=== PATIENT | male | born 1935 | race Caucasian/White ===

== ENCOUNTER 2016-07-03 18:17 | Emergency (ER) | payer MEDICARE, OTHER ==
[2016-07-03] MEDS ORDERED: DIPH/PERTUSS(ACELL)/TETANUS VAC/PF 0.5 ML SYR (>=10YO) IM ONE (18:47)
--- NOTE | 2016-07-03 18:50 | ER Document Report ---
ED Medical Screen (RME) - General Chief Complaint: Fall Stated Complaint: FALL,ARM INJURY Notes: I briefly seen and evaluated this patient in my role as physician in triage. I have initiated orders based on this initial evaluation. Please see my colleague' s documentation for complete history, physical, management, diagnosis, and ultimate disposition. My brief evaluation: Patient presents after a mechanical fall at home. He got tripped up in the walker. He has Parkinson's disease. He landed on his left side. He was unable to get up. Patient's and sons helped him to the car. He was able to stand with assistance after the fall. He is complaining of pain in the left hand and in the left hip. He also has lacerations to the left elbow and left hands. Patient is not sure of his last tetanus shot. He denies hitting his head. He is not on blood thinners. On exam, patient alert and oriented no acute distress vital signs are stable patient is afebrile nontoxic appearing. Patient with wound dressings to the left elbow and left hand were not removed in triage. He is able to move his fingers and wrist but with some pain on range of motion. Patient has poor circulation bilaterally with cap refill of 3+ seconds. The patient is able to flex and extend the elbow and the shoulder. The patient is tender to palpation of the left hip. He is able to extend the knee. There is a good popliteal pulse. Medical decision making: We'll get plain films, tetanus update, and more thorough evaluation of wounds to guide appropriate wound management. TRAVEL OUTSIDE OF THE [place] IN LAST 30 DAYS: No - Related Data Allergies/Adverse Reactions: Opioids - Morphine Analogues [Opioids-Morphine & Related] Allergy (Verified 18:46) Confusion Past Medical History Pulmonary Medical History: Reports: Hx Asthma, Hx Pneumonia Renal/ Medical History: Denies: Hx Peritoneal Dialysis Psychiatric Medical History: Denies: Hx Depression Past Surgical History: Reports: Hx Cardiac Surgery - Bilateral, Hx Cholecystectomy, Hx Herniorrhaphy. Denies: Hx Abdominal Surgery - Immunizations Hx Diphtheria, Pertussis, Tetanus Vaccination: Yes
--- NOTE | 2016-07-03 20:53 | ER Document Report ---
ED General - General Chief Complaint: Fall Stated Complaint: FALL,ARM INJURY Mode of Arrival: Ambulatory Information source: Patient Notes: 80-year-old male persents after a fall into a coffee table just prior to arrival. pt denies any severe pain, notes skin tears TRAVEL OUTSIDE OF THE [place] IN LAST 30 DAYS: No - HPI Onset: Just prior to arrival Onset/Duration: Sudden Quality of pain: No pain Severity: Mild Pain Level: Denies Associated symptoms: None Exacerbated by: Denies Relieved by: Denies Similar symptoms previously: No Recently seen / treated by doctor: No - Related Data Allergies/Adverse Reactions: Opioids - Morphine Analogues [Opioids-Morphine & Related] Allergy (Verified 18:46) Confusion Past Medical History - Social History Smoking Status: Never Smoker Cigarette use (# per day): No Chew tobacco use (# tins/day): No Smoking Education Provided: No Family History: DM, Malignancy, Other - COPD Patient has suicidal ideation: No Patient has homicidal ideation: No Pulmonary Medical History: Reports: Hx Asthma, Hx Pneumonia Renal/ Medical History: Denies: Hx Peritoneal Dialysis Psychiatric Medical History: Denies: Hx Depression Past Surgical History: Reports: Hx Cardiac Surgery - Bilateral, Hx Cholecystectomy, Hx Herniorrhaphy. Denies: Hx Abdominal Surgery - Immunizations Hx Diphtheria, Pertussis, Tetanus Vaccination: Yes Hx Pneumococcal Vaccination: 12/20/12 Review of Systems - Review of Systems Notes: REVIEW OF SYSTEMS: CONSTITUTIONAL : Denies fever, chills, or sweats. Denies recent illness. EENT: Denies eye, ear, throat, or mouth pain or symptoms. Denies nasal or sinus congestion or discharge. Denies throat, tongue, or mouth swelling or difficulty swallowing. CARDIOVASCULAR: Denies chest pain. Denies palpitations or racing or irregular heart beat. Denies ankle edema. RESPIRATORY: Denies cough, cold, or chest congestion. Denies shortness of breath, difficulty breathing, or wheezing. GASTROINTESTINAL: Denies abdominal pain or distention. Denies nausea, vomiting , or diarrhea. Denies blood in vomitus, stools, or per rectum. Denies black, tarry stools. Denies constipation. GENITOURINARY: Denies difficulty urinating, painful urination, burning, frequency, blood in urine, or discharge. MUSCULOSKELETAL: Admits to left arm pain SKIN: Admits to skin tear HEMATOLOGIC : Denies easy bruising or bleeding. LYMPHATIC: Denies swollen, enlarged glands. NEUROLOGICAL: Denies confusion or altered mental status. Denies passing out or loss of consciousness. Denies dizziness or lightheadedness. Denies headache. Denies weakness or paralysis or loss of use of either side. Denies problems with gait or speech. Denies sensory loss, numbness, or tingling. Denies seizures. PSYCHIATRIC: Denies anxiety or stress. Denies depression, suicidal ideation, or homicidal ideation. ALL OTHER SYSTEMS REVIEWED AND NEGATIVE. Dictation was performed using [employer] recognition software PHYSICAL EXAMINATION: GENERAL: Well-appearing, well-nourished and in no acute distress. HEAD: Atraumatic, normocephalic. EYES: Pupils equal round and reactive to light, extraocular movements intact, sclera anicteric, conjunctiva are normal. ENT: Nares patent, oropharynx clear without exudates. Moist mucous membranes. NECK: Normal range of motion, supple without lymphadenopathy LUNGS: Breath sounds clear to auscultation bilaterally and equal. No wheezes rales or rhonchi. HEART: Regular rate and rhythm without murmurs ABDOMEN: Soft, nontender, nondistended abdomen. No guarding, no rebound. No masses appreciated. Musculoskeletal: Normal range of motion, no pitting or edema. No cyanosis. NEUROLOGICAL: Cranial nerves grossly intact. Normal speech, normal gait. Normal sensory, motor exams PSYCH: Normal mood, normal affect. SKIN: 2 small skin tears noted left elbow left wrist Physical Exam - Vital signs Vitals: Temp Pulse Resp BP Pulse Ox 97.7 F 89 18 157/86 H 98 07/03/16 18:22 07/03/16 18:22 07/03/16 18:22 07/03/16 18:22 07/03/16 18:22 Course - Re-evaluation Re-evalutation: 07/03/16 21:03 Area will have wet-to-dry dressing, Neosporin and care by PCT and nurse. Patient will be sent home with gauze and follow-up with primary care physician. Pressure to return precautions regarding wound care provided After performing a Medical Screening Examination, I estimate there is LOW risk for OPEN FRACTURE, COMPARTMENT SYNDROME, TENDON RUPTURE, ACUTE NEUROVASCULAR INJURY, or RETAINED FOREIGN BODY, thus I consider the discharge disposition reasonable. Also, there is no evidence or peritonitis, sepsis, or toxicity. I have reevaluated this patient multiple times and no significant life threatening changes are noted. The patient and I have discussed the diagnosis and risks, and we agree with discharging home with close follow-up with the understanding that symptoms and presentations can change. We also discussed returning to the Emergency Department immediately if new or worsening symptoms occur. We have discussed the symptoms which are most concerning (e.g., changing or worsening pain, fever, numbness, weakness, cool or painful digits) that necessitate immediate return. - Vital Signs Vital signs: Temp Pulse Resp BP Pulse Ox 97.7 F 89 18 157/86 H 98 07/03/16 18:22 07/03/16 18:22 07/03/16 18:22 07/03/16 18:22 07/03/16 18:22 - Diagnostic Test Radiology reviewed: Image reviewed, Reports reviewed Discharge - Discharge Clinical Impression: Skin tear Fall Qualifiers: Encounter type: initial encounter Qualified Code(s): W19.XXXA - Unspecified fall, initial encounter Condition: Stable Disposition: HOME, SELF-CARE Instructions: Delayed Wound Closure ([facility]) Additional Instructions: Follow up with your physician tomorrow for further care or return to the ED IMMEDIATELY if symptoms worsen or new concerns occur. If you cannot afford to follow up with your primary care physician a list of low cost clinics have been provided at the end of your discharge papers as well. Referrals: RAUDEL IBARRA MD [NO LOCAL MD] - Follow up as needed
[2016-07-03 21:36] VITALS: BP 147/85
== END 2016-07-03 21:37 | disposition home or self-care (01) ==
LOC: ER 18:17
DX: S61.512A Laceration without foreign body of left wrist, initial encounter (principal); S51.012A Laceration without foreign body of left elbow, initial encounter; M25.552 Pain in left hip; W01.190A Fall on same level from slipping, tripping and stumbling with subsequent striking against furniture, initial encounter; Z90.49 Acquired absence of other specified parts of digestive tract; Z23 Encounter for immunization
CPT/HCPCS: 90471; 90715; 99283

== ENCOUNTER 2016-07-21 13:03 | Emergency (ER) | payer MEDICARE, OTHER ==
--- NOTE | 2016-07-21 14:22 | ER Document Report ---
ED Medical Screen (RME) - General Chief Complaint: Leg Swelling Stated Complaint: SWOLLEN LEG Time seen by provider: 14:22 Mode of Arrival: Wheelchair Information source: Patient Notes: This is an 80-year-old man brought into the emergency room with bilateral lower extremity swelling right greater than left as per the . Patient also states she's been having right lower extremity pain. Patient denies any shortness of breath. TRAVEL OUTSIDE OF THE [place] IN LAST 30 DAYS: No - Related Data Allergies/Adverse Reactions: Opioids - Morphine Analogues [Opioids-Morphine & Related] Allergy (Verified 05/08 13:28) Confusion Past Medical History Pulmonary Medical History: Reports: Hx Asthma, Hx Pneumonia Renal/ Medical History: Denies: Hx Peritoneal Dialysis Psychiatric Medical History: Denies: Hx Depression Past Surgical History: Reports: Hx Cardiac Surgery - Bilateral, Hx Cholecystectomy, Hx Herniorrhaphy. Denies: Hx Abdominal Surgery - Immunizations Hx Diphtheria, Pertussis, Tetanus Vaccination: Yes Physical Exam - Vital signs Vitals: Temp Pulse Resp BP Pulse Ox 97.5 F 87 20 184/102 H 94 07/21/16 13:29 07/21/16 13:29 07/21/16 13:29 07/21/16 13:29 07/21/16 13:29 Course - Vital Signs Vital signs: Temp Pulse Resp BP Pulse Ox 97.5 F 87 20 184/102 H 94 07/21/16 13:29 07/21/16 13:29 07/21/16 13:29 07/21/16 13:29 07/21/16 13:29
[2016-07-21 15:23] LABS: ABSOLUTE BASOPHILS # (AUTO) 0.1 10^3/uL (0.0-0.2); ABSOLUTE EOSINOPHILS # (AUTO) 0.3 10^3/uL (0.0-0.6); ABSOLUTE LYMPHOCYTES (AUTO) 1.2 10^3/uL (0.5-4.7); ABSOLUTE MONOCYTES (AUTO) 1.1 10^3/uL (0.1-1.4); ABSOLUTE NEUT (AUTO) 6.4 10^3/uL (1.7-8.2); BASOPHILS % (AUTO) 0.7 % (0-2); EOSINOPHILS % (AUTO) 3.2 % (0-6); HEMATOCRIT 44.5 % (37.9-51.0); HEMOGLOBIN 15.1 g/dL (13.5-17.0); HGB HCT DIFFERENCE 0.8; LYMPHOCYTES % (AUTO) 13.7 % (13-45); MEAN CORPUSCULAR HGB CONC 33.9 g/dL (32.0-36.0); MEAN CORPUSCULAR VOLUME 92 fl (80-97); MONOCYTES % (AUTO) 11.9 % (3-13); RED BLOOD COUNT 4.87 10^6/uL (4.35-5.55); RED CELL DISTRIBUTION WIDTH 13.3 % (11.5-14.0); SEGMENTED NEUTROPHILS % (AUTO) 70.5 % (42-78); WHITE BLOOD COUNT 9.1 10^3/uL (4.0-10.5)
[2016-07-21 15:43] LABS: ALANINE AMINOTRANSFERASE 19 U/L (21-72); ALKALINE PHOSPHATASE 108 U/L (38-126); ANION GAP 13 (5-19); ASPARTATE AMINO TRANSFERASE 33 U/L (17-59); BILIRUBIN,DIRECT 0.3 mg/dL (0.0-0.4); BILIRUBIN,TOTAL 0.8 mg/dL (0.2-1.3); BLOOD UREA NITROGEN 21 mg/dL (7-20); CALCIUM 9.6 mg/dL (8.4-10.2); CARBON DIOXIDE 29 mmol/L (22-30); CHLORIDE 99 mmol/L (98-107); CREATINE KINASE 217 U/L (55-170); CREATININE RESULT 1.03 mg/dL (0.52-1.25); GLUCOSE 105 mg/dL (75-110); POTASSIUM 4.7 mmol/L (3.6-5.0); SODIUM 140.9 mmol/L (137-145); TOTAL PROTEIN 7.4 g/dL (6.3-8.2)
--- NOTE | 2016-07-21 17:15 | ER Document Report ---
ED Extremity Problem, Lower - General Chief Complaint: Leg Swelling Stated Complaint: SWOLLEN LEG Time seen by provider: 16:35 Mode of Arrival: Wheelchair Information source: Patient, Relative - Notes: 80-year-old male presents to ED for complaint of bilateral lower extremity swelling right greater than left as per his . She states that the doctor said that they were to bring him into the emergency room for the swelling in his legs. Patient denies any shortness of breath and states that the swelling in his legs have been for several weeks. Y states that he has had no cardiac history no problems with blood pressure cholesterol has had a history of asthma and pneumonia states she is also had a ventral hernia and left inguinal hernia repairs. Y states she's also had cataract surgery bilaterally, nose surgery, and cholecystectomy. TRAVEL OUTSIDE OF THE [place] IN LAST 30 DAYS: No - HPI Patient complains to provider of: Pain, Swelling Location: Foot, Leg, Thigh Occurred: Other - Several weeks Onset/Duration: Gradual, Persistent, Worse Quality of pain: Other - Patient states he has a pinching feeling in his legs but is not very bad. Severity: Mild Pain Level: 2 Recent injury: No Associated symptoms: Painful ambulation Exacerbated by: Movement, Walking Relieved by: Elevation - Related Data Allergies/Adverse Reactions: Opioids - Morphine Analogues [Opioids-Morphine & Related] Allergy (Verified 05/08 13:28) Confusion Past Medical History - General Information source: Patient - Social History Smoking Status: Never Smoker Chew tobacco use (# tins/day): No Frequency of alcohol use: None Drug Abuse: None Family History: DM, Malignancy, Other - COPD Patient has suicidal ideation: No Patient has homicidal ideation: No Pulmonary Medical History: Reports: Hx Asthma, Hx Pneumonia Renal/ Medical History: Denies: Hx Peritoneal Dialysis Psychiatric Medical History: Denies: Hx Depression Past Surgical History: Reports: Hx Cardiac Surgery - Bilateral, Hx Cholecystectomy, Hx Herniorrhaphy. Denies: Hx Abdominal Surgery - Immunizations Hx Diphtheria, Pertussis, Tetanus Vaccination: Yes Hx Pneumococcal Vaccination: 12/20/12 Physical Exam - Vital signs Vitals: Temp Pulse Resp BP Pulse Ox 97.5 F 87 20 184/102 H 94 07/21/16 13:29 07/21/16 13:29 07/21/16 13:29 07/21/16 13:29 07/21/16 13:29 Course - Re-evaluation Re-evalutation: 07/21/16 17:50 Discussed chest x-ray and Doppler with patient and family as well as labs. A written report of the Doppler chest x-ray and labs given to family to take to his primary doctor. His feet are very scaly and foul-smelling they were scrubbed dried well and a clean pad socks put on his feet. Patient and family were instructed to please clean those feet at least every other day if not every day rubbing them and drying them well and putting on his therapeutic socks which should be changed at least daily. - Vital Signs Vital signs: Temp Pulse Resp BP Pulse Ox 97.5 F 87 20 184/102 H 97 07/21/16 13:29 07/21/16 13:29 07/21/16 13:29 07/21/16 13:29 07/21/16 16:47 - Laboratory Result Diagrams: 07/21/16 14:50 07/21/16 14:50 Laboratory results interpreted by me: 07/21/16 14:50 BUN 21 H ALT 19 L Creatine Kinase 217 H - Diagnostic Test Radiology reviewed: Image reviewed, Reports reviewed Discharge - Discharge Clinical Impression: Edema of both legs Condition: Stable Disposition: HOME, SELF-CARE Additional Instructions: Edema, Peripheral You have swelling in your legs. This is called peripheral edema. It can be caused by "leaky capillaries," inflammation, disease of the leg veins, or excess salt and water in your body. Edema may be a sign of heart, kidney, or liver disease. A medical evaluation can determine if there is a serious underlying cause for your edema. Avoid prolonged standing. If you must sit for a long time, occasionally get up and walk around or elevate your legs. Support stockings can be helpful in limiting swelling. Often diuretic or water pills are used to remove excess salt and water from your body. Call the doctor or return if you develop increased swelling, pain, or redness, shortness of breath, chest pain, or any other significant change. You need to keep your feet elevated when you are not up walking. Your feet need to be higher then your heart when you're in your chair or your bed. You need to increase your ambulation with your walker as we discussed. Try going 12 steps 3 times a day tomorrow and 20 steps 3 times a day the next day. Then slowly increase the length of time you ambulate each time. Have your went behind you with the wheelchair and you walk with a walker. Call your doctor tomorrow to schedule a follow-up appointment. A copy of your labs Doppler and chest x-ray were sent with you for you to take to your primary doctor. Please be sure that someone cleans your feet with a good scrub and at least every other day if not every day until all of the scaly skin is removed. Be sure that you feet are well dried after they are washed each time. FOLLOW-UP CARE: If you have been referred to a physician for follow-up care, call the physician s office for an appointment as you were instructed or within the next two days. If you experience worsening or a significant change in your symptoms, notify the physician immediately or return to the Emergency Department at any time for re-evaluation. Forms: Elevated Blood Pressure Referrals: RAUDEL IBARRA MD [Primary Care Provider] - Follow up in 3-5 days
[2016-07-21 18:10] VITALS: BP 150/76
--- NOTE | 2016-07-21 19:09 | EKG REPORT ---
SEVERITY:- BORDERLINE ECG - SINUS RHYTHM LEFT AXIS DEVIATION BORDERLINE PROLONGED QT INTERVAL : Confirmed by: Rogers Collins MD 21-Jul-2016 19:08:50
== END 2016-07-21 18:30 | disposition home or self-care (01) ==
LOC: ER 13:03
DX: R60.0 Localized edema (principal); J45.909 Unspecified asthma, uncomplicated; Z88.5 Allergy status to narcotic agent
CPT/HCPCS: 36415; 71010; 80053; 82550; 82553; 85025; 93005; 93010; 93971; 99284

== ENCOUNTER 2016-08-14 17:33 | Emergency (ER) | payer MEDICARE, OTHER ==
[2016-08-14] MEDS ORDERED: LEVOFLOXACIN 500 MG/D5W RTU 100 ML IV ONE (17:47)
[2016-08-14] MEDS ORDERED: IPRATROPIUM/ALBUTEROL 0.5-2.5 MG/3 ML AMPUL NEB ONE (17:47)
--- NOTE | 2016-08-14 17:58 | ER Document Report ---
ED General - General Chief Complaint: Shortness Of Breath Stated Complaint: POSSIBLE SYNCOPE Time Seen by Provider: 08/14/16 17:37 Mode of Arrival: Ambulatory Information source: Patient Notes: A 1-year-old male who is on room air at home history of dementia presents with complaints of shortness of breath weakness. Patient was noted to have a syncopal episode initial blood pressure was noted to be 82/62, patient was noted to be satting 88% on room air. Patient has been complaining of shortness of breath productive cough yellowish sputum TRAVEL OUTSIDE OF THE [place] IN LAST 30 DAYS: No - HPI Onset: Last week Onset/Duration: Persistent Quality of pain: No pain Severity: Moderate Pain Level: Denies Associated symptoms: Shortness of breath Exacerbated by: Denies Relieved by: Denies Similar symptoms previously: Yes Recently seen / treated by doctor: Yes - Related Data Allergies/Adverse Reactions: Opioids - Morphine Analogues [Opioids-Morphine & Related] Allergy (Verified 05/08 13:28) Confusion Past Medical History - Social History Smoking Status: Never Smoker Cigarette use (# per day): No Chew tobacco use (# tins/day): No Smoking Education Provided: No Family History: DM, Malignancy, Other - COPD Pulmonary Medical History: Reports: Hx Asthma, Hx Pneumonia Renal/ Medical History: Denies: Hx Peritoneal Dialysis Psychiatric Medical History: Denies: Hx Depression Past Surgical History: Reports: Hx Cardiac Surgery - Bilateral, Hx Cholecystectomy, Hx Herniorrhaphy. Denies: Hx Abdominal Surgery - Immunizations Hx Diphtheria, Pertussis, Tetanus Vaccination: Yes Hx Pneumococcal Vaccination: 12/20/12 Review of Systems - Review of Systems Notes: PHYSICAL EXAMINATION: GENERAL: Well-appearing, well-nourished and in mild respiratory distress. HEAD: Atraumatic, normocephalic. EYES: Pupils equal round and reactive to light, extraocular movements intact, sclera anicteric, conjunctiva are normal. ENT: Nares patent, oropharynx clear without exudates. Moist mucous membranes. NECK: Normal range of motion, supple without lymphadenopathy LUNGS: Coarse wheezing all throughout supraclavicular intercostal retractions HEART: Regular rate and rhythm without murmurs ABDOMEN: Soft, nontender, nondistended abdomen. No guarding, no rebound. No masses appreciated. Musculoskeletal: Normal range of motion, no pitting or edema. No cyanosis. NEUROLOGICAL: Cranial nerves grossly intact. Normal speech, normal gait. Normal sensory, motor exams PSYCH: Normal mood, normal affect. SKIN: Warm, Dry, normal turgor, no rashes or lesions noted. Physical Exam - Vital signs Vitals: Temp Resp BP Pulse Ox 98.1 F 22 H 129/65 H 95 08/14/16 17:45 08/14/16 17:45 08/14/16 17:45 08/14/16 17:45 Course - Re-evaluation Re-evalutation: 08/14/16 17:58 Patient is having obvious respiratory distress, DuoNeb ordered. Lab work imaging pending 08/14/16 19:54 Patient coughed once and had a large thick sputum come out. Patient's O2 sats immediately improved to 98% and has been at 96-98% throughout on room air. Patient's blood pressures improved after fluids. I believe she is mildly dehydrated. Lab work looks well chest x-ray notes no pneumonia. I explained to the that if there is a medical reason to admit I would gladly admit the patient however I cannot find anything at this time. She patient was set up and did not have any changes in his blood pressure. Therefore I will discharge the patient with the understanding that they must return immediately if there are any other concerns After performing a Medical Screening Examination, I estimate there is LOW risk for ACUTE CORONARY SYNDROME, RESPIRATORY FAILURE, SEPSIS OR MENINGITIS, thus I consider the discharge disposition reasonable. I have reevaluated this patient multiple times and no significant life threatening changes are noted. The patient and I have discussed the diagnosis and risks, and we agree with discharging home with close follow-up. We also discussed returning to the Emergency Department immediately if new or worsening symptoms occur. We have discussed the symptoms which are most concerning (e.g., changing or worsening pain, trouble swallowing or breathing, neck stiffness, fever) that necessitate immediate return. - Vital Signs Vital signs: Temp Pulse Resp BP Pulse Ox 98.5 F 22 H 117/62 96 08/14/16 17:50 08/14/16 18:01 08/14/16 18:01 08/14/16 18:01 - Laboratory Result Diagrams: 08/14/16 17:58 08/14/16 17:58 Laboratory results interpreted by me: 08/14/16 08/14/16 08/14/16 17:58 17:58 19:06 Eosinophils % 7.5 H Sodium 136.8 L Glucose 130 H ALT 18 L Total Protein 5.7 L Albumin 3.0 L Urine Ketones TRACE H Urine Ascorbic Acid 40 H - Diagnostic Test Radiology reviewed: Image reviewed, Reports reviewed Discharge - Discharge Clinical Impression: Weakness Hypotension Qualifiers: Hypotension type: unspecified hypotension type Qualified Code(s): I95.9 - Hypotension, unspecified Failure to thrive Qualifiers: Failure to thrive age range: in adult Qualified Code(s): R62.7 - Adult failure to thrive Condition: Stable Disposition: HOME, SELF-CARE Instructions: Orthostatic Hypotension ([facility]) Referrals: THO IBARRA MD [Primary Care Provider] - Follow up tomorrow
[2016-08-14 18:09] LABS: ABSOLUTE BASOPHILS # (AUTO) 0.1 10^3/uL (0.0-0.2); ABSOLUTE EOSINOPHILS # (AUTO) 0.5 10^3/uL (0.0-0.6); ABSOLUTE LYMPHOCYTES (AUTO) 1.2 10^3/uL (0.5-4.7); ABSOLUTE MONOCYTES (AUTO) 0.8 10^3/uL (0.1-1.4); ABSOLUTE NEUT (AUTO) 4.7 10^3/uL (1.7-8.2); BASOPHILS % (AUTO) 0.9 % (0-2); EOSINOPHILS % (AUTO) 7.5 % (0-6); HEMATOCRIT 40.8 % (37.9-51.0); HEMOGLOBIN 13.5 g/dL (13.5-17.0); HGB HCT DIFFERENCE -0.3; LYMPHOCYTES % (AUTO) 16.1 % (13-45); MEAN CORPUSCULAR HEMOGLOBIN 30.1 pg (27.0-33.4); MEAN CORPUSCULAR HGB CONC 33.1 g/dL (32.0-36.0); MEAN CORPUSCULAR VOLUME 91 fl (80-97); RED BLOOD COUNT 4.48 10^6/uL (4.35-5.55); RED CELL DISTRIBUTION WIDTH 12.5 % (11.5-14.0); SEGMENTED NEUTROPHILS % (AUTO) 64.5 % (42-78); WHITE BLOOD COUNT 7.3 10^3/uL (4.0-10.5)
[2016-08-14 18:11] LABS: VENOUS BLOOD BASE EXCESS -0.7 mmol/L; VENOUS BLOOD HCO3 26.2 mmol/L (20-32); VENOUS BLOOD PCO2 51.9 mmHg (35-63); VENOUS BLOOD PH 7.32 (7.30-7.42)
[2016-08-14 18:16] LABS: PROTHROMBIN TIME 14.2 SEC (11.4-15.4)
[2016-08-14 18:23] LABS: ALANINE AMINOTRANSFERASE 18 U/L (21-72); ALKALINE PHOSPHATASE 85 U/L (38-126); ANION GAP 10 (5-19); ASPARTATE AMINO TRANSFERASE 21 U/L (17-59); BILIRUBIN,DIRECT 0.3 mg/dL (0.0-0.4); BILIRUBIN,TOTAL 0.4 mg/dL (0.2-1.3); BLOOD UREA NITROGEN 15 mg/dL (7-20); CALCIUM 8.4 mg/dL (8.4-10.2); CARBON DIOXIDE 27 mmol/L (22-30); CHLORIDE 100 mmol/L (98-107); CREATININE RESULT 0.97 mg/dL (0.52-1.25); GLUCOSE 130 mg/dL (75-110); POTASSIUM 4.2 mmol/L (3.6-5.0); SODIUM 136.8 mmol/L (137-145); TOTAL PROTEIN 5.7 g/dL (6.3-8.2)
--- NOTE | 2016-08-14 18:26 | RADIOLOGY REPORT (SQ) ---
EXAM DESCRIPTION: CHEST SINGLE VIEW COMPLETED DATE/TIME: 08/14/2016 6:17 pm REASON FOR STUDY: sob, hypoxemia COMPARISON: 08/08/2016 EXAM PARAMETERS: NUMBER OF VIEWS: One view. TECHNIQUE: Single frontal radiographic view of the chest acquired. RADIATION DOSE: NA LIMITATIONS: None. FINDINGS: LUNGS AND PLEURA: No opacities, masses or pneumothorax. No pleural effusion. MEDIASTINUM AND HILAR STRUCTURES: No masses. Contour normal. HEART AND VASCULAR STRUCTURES: Heart normal in size. Normal vasculature. BONES: No acute findings. HARDWARE: None in the chest. OTHER: No other significant finding. IMPRESSION: NO ACUTE RADIOGRAPHIC FINDING IN THE CHEST. TECHNICAL DOCUMENTATION: JOB ID: [id number]
[2016-08-14] MEDS ORDERED: NORMAL SALINE 1000 ML 1,000 ML IV ONE (18:29)
[2016-08-14 19:29] LABS: APPEARANCE,URINE CLEAR; BILIRUBIN,URINE NEGATIVE (NEGATIVE); GLUCOSE, URINE NEGATIVE (NEGATIVE); KETONES,URINE TRACE mg/dL (NEGATIVE); LEUKOCYTE ESTERASE,URINE NEGATIVE (NEGATIVE); NITRITE,URINE NEGATIVE (NEGATIVE); PROTEIN,URINE NEGATIVE (NEGATIVE); URINE SPECIFIC GRAVITY 1.012; UROBILINOGEN,URINE NEGATIVE mg/dL (<2.0)
--- NOTE | 2016-08-14 20:39 | EKG REPORT ---
SEVERITY:- ABNORMAL ECG - SINUS RHYTHM MULTIPLE VENTRICULAR PREMATURE COMPLEXES BORDERLINE T ABNORMALITIES, INFERIOR LEADS BORDERLINE PROLONGED QT INTERVAL : Confirmed by: Rogers Collins MD 14-Aug-2016 20:38:38
[2016-08-14 20:56] VITALS: BP 146/76
== END 2016-08-14 20:56 | disposition home or self-care (01) ==
LOC: ER 17:33
DX: I95.9 Hypotension, unspecified (principal); R62.7 Adult failure to thrive; R06.02 Shortness of breath; R53.1 Weakness
CPT/HCPCS: 93005; 94640; 99285; 96365; 36415; 87040; 87070; 87086; 87205; 85025; 85610; 87077; 80053; 81001; 82803; 83605; 71010; 93010; J1956; J7030; A9270; J7620

== ENCOUNTER 2017-10-25 09:46 | Emergency (ER) | payer MEDICARE, OTHER ==
--- NOTE | 2017-10-25 10:44 | ER Document Report ---
ED General - General Chief Complaint: Flank Pain Stated Complaint: FLANK PAIN Time Seen by Provider: 10/25/17 10:25 Notes: 81-year-old male lost his balance and fell. Landed on the right side. Complaining of pain in the right chest and abdomen. No loss of consciousness. Did not hit his head. No other issues at this time. TRAVEL OUTSIDE OF THE [place] IN LAST 30 DAYS: No - HPI Onset: Just prior to arrival Onset/Duration: Sudden - Related Data Allergies/Adverse Reactions: Opioids - Morphine Analogues [Opioids-Morphine & Related] Allergy (Verified 05/08 13:28) Confusion Past Medical History - General Information source: Patient, Relative - Social History Smoking Status: Never Smoker Cigarette use (# per day): No Chew tobacco use (# tins/day): No Frequency of alcohol use: 2-3 Brandys/night Drug Abuse: None Family History: DM, Malignancy, Other - COPD Patient has suicidal ideation: No Patient has homicidal ideation: No Pulmonary Medical History: Reports: Hx Asthma, Hx Pneumonia Renal/ Medical History: Denies: Hx Peritoneal Dialysis Psychiatric Medical History: Denies: Hx Depression Past Surgical History: Reports: Hx Cardiac Surgery - Bilateral, Hx Cholecystectomy, Hx Herniorrhaphy. Denies: Hx Abdominal Surgery - Immunizations Hx Diphtheria, Pertussis, Tetanus Vaccination: Yes Hx Pneumococcal Vaccination: 12/20/12 Review of Systems - Review of Systems Constitutional: No symptoms reported EENT: No symptoms reported Cardiovascular: No symptoms reported, Chest pain. denies: Palpitations, Heart racing Respiratory: Hurts to breathe. denies: Cough, Short of breath, Wheezing Gastrointestinal: Abdominal pain. denies: Diarrhea, Nausea, Vomiting, Constipation, Black stools Genitourinary: denies: Burning, Dysuria, Flank pain Male Genitourinary: No symptoms reported Musculoskeletal: No symptoms reported Skin: No symptoms reported Hematologic/Lymphatic: No symptoms reported Neurological/Psychological: Other - Parkinson's tremor. denies: Confusion, Weakness, Numbness Physical Exam - Vital signs Vitals: Temp Pulse Resp BP Pulse Ox 97.6 F 74 16 138/61 H 95 10/25/17 09:59 10/25/17 09:59 10/25/17 09:59 10/25/17 09:59 10/25/17 09:59 Interpretation: Normal - General General appearance: Appears well, Alert - HEENT Head: Normocephalic, Atraumatic Eyes: Normal Pupils: PERRL - Respiratory Respiratory status: No respiratory distress Chest status: Nontender Breath sounds: Normal Chest palpation: Normal - Cardiovascular Rhythm: Regular Heart sounds: Normal auscultation Murmur: No Notes: Right-sided chest pain with palpation - Abdominal Inspection: Normal Distension: No distension Bowel sounds: Normal Tenderness: Tender - All tenderness in the abdomen. No guarding or rebound. Organomegaly: No organomegaly - Back Back: Normal, Nontender - Extremities General upper extremity: Normal inspection, Nontender, Normal color, Normal ROM , Normal temperature General lower extremity: Normal inspection, Nontender, Normal color, Normal ROM , Normal temperature. No: Sunday's sign - Neurological Neuro grossly intact: Yes Cognition: Normal Orientation: AAOx4 Shaji Coma Scale Eye Opening: Spontaneous Shaji Coma Scale Verbal: Oriented Shaji Coma Scale Motor: Obeys Commands Shaji Coma Scale Total: 15 Speech: Normal Motor strength normal: LUE, RUE, LLE, RLE Sensory: Normal - Psychological Associated symptoms: Normal affect, Normal mood - Skin Skin Temperature: Warm Skin Moisture: Dry Skin Color: Normal Course - Re-evaluation Re-evalutation: 10/25/17 14:12 Labs are unremarkable. CT scan shows a small trace right pleural effusion but nothing significant. No signs of pneumonia. No pneumothorax. No solid organ injuries. At this time we will discharge. 10/25/17 14:14 Abdomen/Pelvis CT 10/25/17 00:00 IMPRESSION: No significant intra-abdominal or pelvic posttraumatic changes. Other findings as noted above Chest CT 10/25/17 00:00 IMPRESSION: Tiny right pleural effusion is identified. There is some minimal patchy densities in the lung bases most consistent with atelectatic changes or scarring. No other significant intrathoracic abnormalities were identified. Other findings as noted above Laboratory 10/25/17 10/25/17 10/25/17 11:27 11:27 11:32 WBC 8.6 RBC 5.44 Hgb 16.9 Hct 50.8 MCV 93 MCH 31.1 MCHC 33.4 RDW 14.3 H Plt Count 206 Seg Neutrophils % 74.2 Lymphocytes % 12.2 L Monocytes % 10.6 Eosinophils % 2.4 Basophils % 0.6 Absolute Neutrophils 6.4 Absolute Lymphocytes 1.0 Absolute Monocytes 0.9 Absolute Eosinophils 0.2 Absolute Basophils 0.1 Sodium 139.8 Potassium 4.4 Chloride 99 Carbon Dioxide 30 Anion Gap 11 BUN 12 Creatinine 0.97 Est GFR ( Amer) > 60 Est GFR (Non-Af Amer) > 60 Glucose 109 Calcium 9.2 Total Bilirubin 0.7 Direct Bilirubin 0.3 Neonat Total Bilirubin Not Reportable Neonat Direct Bilirubin Not Reportable Neonat Indirect Bili Not Reportable AST 22 ALT 10 L Alkaline Phosphatase 93 Total Protein 7.8 Albumin 4.1 Urine Color YELLOW Urine Appearance CLEAR Urine pH 6.0 Ur Specific Morris 1.017 Urine Protein NEGATIVE Urine Glucose (UA) NEGATIVE Urine Ketones TRACE H Urine Blood NEGATIVE Urine Nitrite NEGATIVE Urine Bilirubin NEGATIVE Urine Urobilinogen NEGATIVE Ur Leukocyte Esterase TRACE H Urine WBC (Auto) 3 Urine RBC (Auto) 0 U Hyaline Cast (Auto) 1 Squamous Epi Cells Auto <1 Urine Mucus (Auto) RARE Urine Ascorbic Acid 40 H - Vital Signs Vital signs: Temp Pulse Resp BP Pulse Ox 97.6 F 74 17 165/83 H 95 10/25/17 09:59 10/25/17 09:59 10/25/17 13:00 10/25/17 12:01 10/25/17 13:00 - Laboratory Result Diagrams: 10/25/17 11:27 10/25/17 11:27 Laboratory results interpreted by me: 10/25/17 10/25/17 10/25/17 11:27 11:27 11:32 RDW 14.3 H Lymphocytes % 12.2 L ALT 10 L Urine Ketones TRACE H Ur Leukocyte Esterase TRACE H Urine Ascorbic Acid 40 H Discharge - Discharge Clinical Impression: Chest wall contusion Qualifiers: Encounter type: initial encounter Laterality: right Qualified Code(s): S20.211A - Contusion of right front wall of thorax, initial encounter Abdominal wall contusion Qualifiers: Encounter type: initial encounter Qualified Code(s): S30.1XXA - Contusion of abdominal wall, initial encounter Condition: Good Disposition: HOME, SELF-CARE Instructions: Rib Contusion ([facility]), Abdominal Pain ([facility]) Additional Instructions: Please follow-up with your doctor. Return for any worsening symptoms or concerns. Referrals: THO IBARRA MD [Primary Care Provider] - Follow up as needed
[2017-10-25 11:33] LABS: ABSOLUTE BASOPHILS # (AUTO) 0.1 10^3/uL (0.0-0.2); ABSOLUTE EOSINOPHILS # (AUTO) 0.2 10^3/uL (0.0-0.6); ABSOLUTE MONOCYTES (AUTO) 0.9 10^3/uL (0.1-1.4); ABSOLUTE NEUT (AUTO) 6.4 10^3/uL (1.7-8.2); BASOPHILS % (AUTO) 0.6 % (0-2); EOSINOPHILS % (AUTO) 2.4 % (0-6); HEMATOCRIT 50.8 % (37.9-51.0); HEMOGLOBIN 16.9 g/dL (13.5-17.0); LYMPHOCYTES % (AUTO) 12.2 % (13-45); MEAN CORPUSCULAR HEMOGLOBIN 31.1 pg (27.0-33.4); MEAN CORPUSCULAR HGB CONC 33.4 g/dL (32.0-36.0); MEAN CORPUSCULAR VOLUME 93 fl (80-97); MONOCYTES % (AUTO) 10.6 % (3-13); PLATELET COUNT 206 10^3/uL (150-450); RED BLOOD COUNT 5.44 10^6/uL (4.35-5.55); RED CELL DISTRIBUTION WIDTH 14.3 % (11.5-14.0); SEGMENTED NEUTROPHILS % (AUTO) 74.2 % (42-78); TOTAL CELLS COUNTED % (AUTO) 100 %; WHITE BLOOD COUNT 8.6 10^3/uL (4.0-10.5)
[2017-10-25 11:55] LABS: ALANINE AMINOTRANSFERASE 10 U/L (21-72); ALBUMIN 4.1 g/dL (3.5-5.0); ALKALINE PHOSPHATASE 93 U/L (38-126); ANION GAP 11 (5-19); ASPARTATE AMINO TRANSFERASE 22 U/L (17-59); BILIRUBIN,DIRECT 0.3 mg/dL (0.0-0.4); BILIRUBIN,TOTAL 0.7 mg/dL (0.2-1.3); BLOOD UREA NITROGEN 12 mg/dL (7-20); CALCIUM 9.2 mg/dL (8.4-10.2); CARBON DIOXIDE 30 mmol/L (22-30); CHLORIDE 99 mmol/L (98-107); GLUCOSE 109 mg/dL (75-110); POTASSIUM 4.4 mmol/L (3.6-5.0); SODIUM 139.8 mmol/L (137-145); TOTAL PROTEIN 7.8 g/dL (6.3-8.2)
[2017-10-25 11:58] LABS: APPEARANCE,URINE CLEAR; BILIRUBIN,URINE NEGATIVE (NEGATIVE); COLOR,URINE YELLOW; GLUCOSE, URINE NEGATIVE (NEGATIVE); KETONES,URINE TRACE mg/dL (NEGATIVE); LEUKOCYTE ESTERASE,URINE TRACE (NEGATIVE); NITRITE,URINE NEGATIVE (NEGATIVE); PROTEIN,URINE NEGATIVE (NEGATIVE); URINE SPECIFIC GRAVITY 1.017; UROBILINOGEN,URINE NEGATIVE mg/dL (<2.0)
--- NOTE | 2017-10-25 13:03 | RADIOLOGY REPORT (SQ) ---
EXAM DESCRIPTION: CT CHEST WITH COMPLETED DATE/TIME: 10/25/2017 12:26 pm REASON FOR STUDY: fall COMPARISON: February 2015 TECHNIQUE: CT scan of the chest performed using helical scanning technique with dynamic intravenous contrast injection. Images reviewed with lung, soft tissue and bone windows. Reconstructed coronal and sagittal MPR images reviewed. All images stored on PACS. All CT scanners at this facility use dose modulation, iterative reconstruction, and/or weight based d osing when appropriate to reduce radiation dose to as low as reasonably achievable (ALARA). [facility]: Dose Right [facility]: CareDose [facility]: Dose Right [facility]: Teradose 4D [facility]: [place] CONTRAST TYPE AND DOSE: 89 mL Omnipaque 350 RENAL FUNCTION: Creatinine 0.97 RADIATION DOSE: . LIMITATIONS: None. FINDINGS: LUNGS AND PLEURA: Tiny right pleural effusion is identified. There are some minimal patch y densities in the lung bases most consistent with atelectatic changes or scarring. No acute consoli dations are identified. No pneumothorax is seen. HILAR AND MEDIASTINAL STRUCTURES: No identified masses or abnormal nodes. HEART AND VASCULAR STRUCTURES: No aneurysm or dissection. No central pulmonary emboli. No pericardi al effusion. HARDWARE: None in the chest. UPPER ABDOMEN: See results under abdominal CT scan THYROID AND OTHER SOFT TISSUES: No masses. No adenopathy. BONES: No significant finding. OTHER: No other significant finding. IMPRESSION: Tiny right pleural effusion is identified. There is some minimal patchy densities in th e lung bases most consistent with atelectatic changes or scarring. No other significant intrathoraci c abnormalities were identified. Other findings as noted above TECHNICAL DOCUMENTATION: JOB ID: [id number] Quality ID # [id number]: Final reports with documentation of one or more dose reduction techniques (e.g., Au tomated exposure control, adjustment of the mA and/or kV according to patient size, use of iterative reconstruction technique) 2010 [employer]- All Rights Reserved Reading location - IP/workstation name: [email or web address]
--- NOTE | 2017-10-25 13:11 | RADIOLOGY REPORT (SQ) ---
EXAM DESCRIPTION: CT ABD/PELVIS WITH IV ONLY COMPLETED DATE/TIME: 10/25/2017 12:26 pm REASON FOR STUDY: bed 7 fall COMPARISON: February 2015 TECHNIQUE: CT scan of the abdomen and pelvis performed using helical scanning technique with dynamic intravenous contrast injection. No oral contrast. Images reviewed with lung, soft tissue, and bone windows. Reconstructed coronal and sagittal MPR images reviewed. Delayed images for evaluation of the urinary system also acquired. All images stored on PACS. All CT scanners at this facility use dose modulation, iterative reconstruction, and/or weight based d osing when appropriate to reduce radiation dose to as low as reasonably achievable (ALARA). [facility]: Dose Right [facility]: CareDose [facility]: Dose Right [facility]: Teradose 4D [facility]: [employer] CONTRAST TYPE AND DOSE: contrast/concentration: Isovue 350.00 mg/ml; Total Contrast Delivered: 89.0 ml; Total Saline Delivered: 65.0 ml RENAL FUNCTION: Creatinine 0.97 RADIATION DOSE: CT Rad equipment meets quality standard of care and radiation dose reduction techniq ues were employed. CTDIvol: 15.3 - 19.4 mGy. DLP: 2162 mGy-cm.. LIMITATIONS: None. FINDINGS: LOWER CHEST: See results under chest CT scan LIVER: Normal size. No masses. No dilated ducts. SPLEEN: Normal size. No focal lesions. PANCREAS: No masses. No significant calcifications. No adjacent inflammation or peripancreatic fluid collections. Pancreatic duct not dilated. GALLBLADDER: Status post cholecystectomy. ADRENAL GLANDS: No significant masses or asymmetry. RIGHT KIDNEY AND URETER: No solid masses. No significant calcifications. No hydronephrosis or hyd roureter. LEFT KIDNEY AND URETER: No solid masses. The previously described peripelvic cysts appears stable. No significant calcifications. No hydronephrosis or hydroureter. AORTA AND VESSELS: No aneurysm. No dissection. There is ectasia of the abdominal aorta with vascular calcifications. Renal arteries, SMA, celiac without stenosis. RETROPERITONEUM: No retroperitoneal adenopathy, hemorrhage or masses. BOWEL AND PERITONEAL CAVITY: No masses or inflammatory changes. No free fluid or peritoneal masses. APPENDIX: Normal. PELVIS: No mass. No free fluid. Urine distended bladder is identified. ABDOMINAL WALL: No masses. No hernias. BONES: No acute findings. There is minimal anterolisthesis of L 5 in relation to S1. OTHER: No other significant finding. IMPRESSION: No significant intra-abdominal or pelvic posttraumatic changes. Other findings as noted above TECHNICAL DOCUMENTATION: JOB ID: [id number] Quality ID # [id number]: Final reports with documentation of one or more dose reduction techniques (e.g., Au tomated exposure control, adjustment of the mA and/or kV according to patient size, use of iterative reconstruction technique) 2010 [employer]- All Rights Reserved Reading location - IP/workstation name: [email or web address]
[2017-10-25] MEDS ORDERED: KETOROLAC TROMETHAMINE INJ/PF 30 MG/1 ML SDV IV ONE (14:13)
[2017-10-25 15:27] VITALS: BP 167/79
== END 2017-10-25 15:05 | disposition home or self-care (01) ==
LOC: ER 09:46
DX: S20.211A Contusion of right front wall of thorax, initial encounter (principal); S30.1XXA Contusion of abdominal wall, initial encounter; W18.30XA Fall on same level, unspecified, initial encounter; Z88.6 Allergy status to analgesic agent
CPT/HCPCS: 99284; 96374; 36415; 85025; 80053; 81001; 71260; 74177; J1885

== ENCOUNTER 2018-03-17 12:43 | Observation (INO) | payer MEDICARE, OTHER ==
--- NOTE | 2018-03-17 13:44 | ER Document Report ---
ED Dizziness/Weakness - General Chief Complaint: Syncope Stated Complaint: SYNCOPE Time Seen by Provider: 03/17/18 13:27 Information source: Patient Notes: Patient is an 82-year-old male with past medical history as recorded who presents today with EMS after supposed episode where he states he felt "lightheaded" while attending have a bowel movement. Patient states he had a transient episode of pain to the top of his head. He states it lasted less than 10 minutes. He denies any pain at this time. He denies any neck pain, chest pain, abdominal pain, palpitations, nausea, vomiting, diarrhea, fever, weakness or numbness to the arms or legs. Patient states that that he had a physical therapy session at home and had to use the bathroom. He does not remember why he has physical therapy. Patient states his does "most of the talking". She was supposed to follow the EMS vehicle but is currently not in the room. TRAVEL OUTSIDE OF THE [place] IN LAST 30 DAYS: No - HPI Patient complains to provider of: Dizziness Onset: Other - See above Quality of pain: No pain Severity: Mild Pain Level: Denies Associated symptoms: Other - See above Exacerbated by: Other - See above - Related Data Allergies/Adverse Reactions: Opioids - Morphine Analogues [Opioids-Morphine & Related] Allergy (Verified 07/21/16 13:28) Confusion Past Medical History - Social History Smoking Status: Unknown if Ever Smoked Family History: DM, Malignancy, Other - COPD Patient has suicidal ideation: No Patient has homicidal ideation: No Pulmonary Medical History: Reports: Hx Asthma, Hx Pneumonia Renal/ Medical History: Denies: Hx Peritoneal Dialysis Psychiatric Medical History: Denies: Hx Depression Past Surgical History: Reports: Hx Cardiac Surgery - Bilateral, Hx Cholecystectomy, Hx Herniorrhaphy. Denies: Hx Abdominal Surgery - Immunizations Hx Diphtheria, Pertussis, Tetanus Vaccination: Yes Hx Pneumococcal Vaccination: 12/20/12 Review of Systems - Review of Systems Constitutional: denies: Fever EENT: denies: Eye discharge, Nose discharge Cardiovascular: denies: Chest pain, Palpitations Respiratory: denies: Short of breath Gastrointestinal: denies: Vomiting Genitourinary: denies: Dysuria Musculoskeletal: denies: Leg swelling Skin: Other - no hives. denies: Rash Neurological/Psychological: Other - no slurred speech -: Yes All other systems reviewed and negative Physical Exam - Vital signs Vitals: Resp 24 H 03/17/18 12:47 Notes: Reviewed vital signs and nursing note as charted by RN. CONSTITUTIONAL: Alert and responds appropriately to questions. Well-appearing; well-nourished HEAD: Normocephalic; atraumatic EYES: PERRL; full extraocular range of motion; sclerae non-icteric ENT: Normal nose; no rhinorrhea; moist mucous membranes; pharynx without lesions noted NECK: Supple without meningismus; non-tender; carotid bruit; no cervical lymph adenopathy, no masses CARD: Regular rate and rhythm; no murmurs; symmetric distal pulses RESP: Normal chest excursion without splinting or tachypnea; breath sounds clear and equal bilaterally; no wheezes, no rhonchi, no rales ABD/GI: Normal bowel sounds; non-distended; soft, non-tender; no palpable organomegaly or masses with no bruits to auscultation BACK: The back appears normal and is non-tender to palpation EXT: Normal ROM in all joints; non-tender to palpation; no edema SKIN: No acute lesions noted NEURO: CN 2-12 intact with some left-sided facial droop which the patient states is baseline; patient is able to lift both arms greater than 10 seconds in both legs greater than 5 seconds independently PSYCH: The patient's mood and manner are appropriate. Grooming and personal hygiene are appropriate. Course - Re-evaluation Re-evalutation: Given the history and physical examination we will order CT scan of the head, place the patient on the monitor and obtain a cardiac evaluation as well as an EKG. Vital signs are stable. I like to evaluate for any obvious cardiac dysrhythmias or intracranial lesions. I do believe acute bacterial meningitis to be unlikely. Given the time course, CT scan of the head should be 100% sensitive for intracranial bleed or subarachnoid hemorrhage. 03/17/18 13:43 EKG shows a heart of 82, normal sinus rhythm, left axis deviation, no obvious ST elevation or depression, inverted T wave in lead III. 03/17/18 14:01 No change in exam. Patient's and daughter are currently now in the room. They state that his story is slightly inaccurate. 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 Patient had both physical therapy and occupational therapy back to back today which she has "a lot and unusual for him". They state that the patient had episode where his eyes were open but he was slightly unresponsive. No shaking or seizure-like activity. Patient did not have any incontinence and had no postictal period of confusion. 03/17/18 15:16 Imaging and labs as recorded. No change in examination. Family is very concerned about the possibility of a mini stroke and/or seizure. I do believe there is a possibility of a mini stroke. I do believe seizure to be less likely. Given the heart rate in the blood pressure that were initially low by EMS, this also could have been a vagal/syncopal-like reaction. Patient will be admitted for observation. - Vital Signs Vital signs: Temp Pulse Resp BP Pulse Ox 97.6 F 80 20 134/71 H 96 03/17/18 13:03 03/17/18 13:03 03/17/18 13:03 03/17/18 13:03 03/17/18 13:03 - Laboratory Result Diagrams: 03/17/18 13:09 03/17/18 13:09 Laboratory results interpreted by me: 03/17/18 03/17/18 13:09 13:09 RDW 14.6 H Lymphocytes % 11.6 L Sodium 136.4 L Carbon Dioxide 31 H Glucose 131 H Discharge - Discharge Clinical Impression: Syncope, near, Bradycardia, Nonspecific low blood pressure reading Condition: Fair Disposition: ADMITTED OBSERVATION Admitting Provider: Hospitalist Unit Admitted: Telemetry Referrals: THO IBARRA MD [Primary Care Provider] - Follow up as needed
[2018-03-17 13:48] LABS: ABSOLUTE EOSINOPHILS # (AUTO) 0.2 10^3/uL (0.0-0.6); ABSOLUTE LYMPHOCYTES (AUTO) 1.1 10^3/uL (0.5-4.7); ABSOLUTE MONOCYTES (AUTO) 0.9 10^3/uL (0.1-1.4); ABSOLUTE NEUT (AUTO) 7.2 10^3/uL (1.7-8.2); BASOPHILS % (AUTO) 0.4 % (0-2); EOSINOPHILS % (AUTO) 1.9 % (0-6); HEMATOCRIT 48.1 % (37.9-51.0); HEMOGLOBIN 16.3 g/dL (13.5-17.0); LYMPHOCYTES % (AUTO) 11.6 % (13-45); MEAN CORPUSCULAR HEMOGLOBIN 31.7 pg (27.0-33.4); MEAN CORPUSCULAR HGB CONC 33.9 g/dL (32.0-36.0); MEAN CORPUSCULAR VOLUME 93 fl (80-97); MONOCYTES % (AUTO) 9.6 % (3-13); PLATELET COUNT 191 10^3/uL (150-450); RED BLOOD COUNT 5.15 10^6/uL (4.35-5.55); RED CELL DISTRIBUTION WIDTH 14.6 % (11.5-14.0); SEGMENTED NEUTROPHILS % (AUTO) 76.5 % (42-78); TOTAL CELLS COUNTED % (AUTO) 100 %; WHITE BLOOD COUNT 9.4 10^3/uL (4.0-10.5)
[2018-03-17 13:57] LABS: ANION GAP 5 (5-19); BLOOD UREA NITROGEN 13 mg/dL (7-20); CARBON DIOXIDE 31 mmol/L (22-30); CHLORIDE 100 mmol/L (98-107); GLUCOSE 131 mg/dL (75-110); POTASSIUM 4.1 mmol/L (3.6-5.0); SODIUM 136.4 mmol/L (137-145)
--- NOTE | 2018-03-17 14:41 | RADIOLOGY REPORT (SQ) ---
EXAM DESCRIPTION: CT HEAD WITHOUT COMPLETED DATE/TIME: 03/17/2018 2:32 pm REASON FOR STUDY: 8; possible syncope COMPARISON: None. TECHNIQUE: Axial images acquired through the brain without intravenous contrast. Images reviewed wi th bone, brain and subdural windows. Additional sagittal and coronal reconstructions were generated. Images stored on PACS. All CT scanners at this facility use dose modulation, iterative reconstruction, and/or weight based d osing when appropriate to reduce radiation dose to as low as reasonably achievable (ALARA). [facility]: Dose Right [facility]: CareDose [facility]: Dose Right [facility]: Teradose 4D [facility]: [employer] RADIATION DOSE: CT Rad equipment meets quality standard of care and radiation dose reduction techniq ues were employed. CTDIvol: 53.2 mGy. DLP: 1070 mGy-cm. mGy. LIMITATIONS: None. FINDINGS: VENTRICLES: Normal size and contour. CEREBRUM: No masses. No hemorrhage. No midline shift. No evidence for acute infarction. Few scatte red areas of low density in the white matter most likely chronic small vessel ischemic changes. CEREBELLUM: No masses. No hemorrhage. No alteration of density. No evidence for acute infarction. EXTRAAXIAL SPACES: No fluid collections. No masses. ORBITS AND GLOBE: No intra- or extraconal masses. Normal contour of globe without masses. CALVARIUM: No fracture. PARANASAL SINUSES: No fluid or mucosal thickening. SOFT TISSUES: No mass or hematoma. OTHER: No other significant finding. IMPRESSION: No acute intracranial pathology. Small vessel white matter disease in keeping with adva nced patient age. EVIDENCE OF ACUTE STROKE: NO. COMMENT: Quality ID # 436: Final reports with documentation of one or more dose reduction techniques (e.g., Automated exposure control, adjustment of the mA and/or kV according to patient size, use of iterative reconstruction technique) TECHNICAL DOCUMENTATION: JOB ID: [id number] [employer]- All Rights Reserved Reading location - IP/workstation name: [email or web address]
--- NOTE | 2018-03-17 18:17 | PDOC H&P ---
History of Present Illness Admission Date/PCP: 03/17/18 15:55 THO IBARRA MD Patient complains of: Passed out History of Present Illness: LENNIE SANTANA JR is a 82 year old male history of Parkinson's disease who is currently undergoing physical therapy. Patient had physical therapy today and when he sat on the chair later, he became unresponsive for about a minute. He had blanks stare by his . There were no shaking or frothing in the mouth. When he became responsive, he was not postictal. He presented to the ED where evaluation significant for stomach blood pressure in the 70s, heart rate 40s. He had a negative head CT. Patient referred for admission to observation. Past Medical History Pulmonary Medical History: Reports: Asthma, Pneumonia Psychiatric Medical History: Denies: Depression Past Surgical History Past Surgical History: Reports: Cholecystectomy, Herniorrhaphy Social History Smoking Status: Unknown if Ever Smoked Frequency of Alcohol Use: Social Hx Recreational Drug Use: No Drugs: None Hx Prescription Drug Abuse: No - Advance Directive Resuscitation Status: Full Code Family History Family History: DM, Malignancy, Other - COPD Parental Family History Reviewed: Yes Children Family History Reviewed: Yes Sibling(s) Family History Reviewed.: Yes Medication/Allergy Home Medications: Azelastine HCl 2 spray NASL BID 02/08/15 Loratadine 10 mg PO DAILY PRN 02/08/15 Montelukast Sodium [Singulair 10 mg Tablet] 10 mg PO DAILY 02/08/15 Budesonide/Formoterol Fumarate [Symbicort HFA 80-4.5 mcg Inhaler 6.9 gm] 1 puff IH BID 03/18/15 Carbidopa/Levodopa [Sinemet 25-100 mg Tablet] 2 tab PO TID 03/18/15 Cyclosporine 0.05% Oph Emulsio [Restasis 0.05% Oph Emulsion Pf 0.4 ml] 1 drop OP BID 03/20/15 Aspirin [Aspirin 81 mg Chewable Tablet] 81 mg PO DAILY tab.chew 03/24/15 Docusate Sodium [Colace Udc 100 mg/10 ml Oral Soln] 100 mg PO BID udc 03/24/15 Fluconazole [Diflucan 100 mg Tablet] 100 mg PO QPM #7 tablet 03/24/15 Levofloxacin [Levaquin 750 mg Tablet] 750 mg PO DAILY #5 tablet 03/24/15 Carbidopa/Levodopa [Sinemet 25-100 mg Tablet] 2 tab PO Q8 tablet 03/26/15 Cyclosporine 0.05% Oph Emulsio [Restasis 0.05% Oph Emulsion Pf 0.4 ml] 1 drop OU Q12 droperette 03/26/15 Prednisone [Deltasone 10 mg Tablet] 10 mg PO DAILY #5 tablet 03/26/15 Ketorolac Tromethamine [Toradol 10 mg Tablet] 10 mg PO Q8H PRN 5 Days #15 tablet 10/25/17 Allergies/Adverse Reactions: Opioids - Morphine Analogues [Opioids-Morphine & Related] Allergy (Verified 13:28) Confusion Review of Systems Review of Systems: CONSTITUTIONAL : Fever, chills -- No; unexpalined fatigue -- No EENT: Denies eye, ear, throat, or mouth pain or symptoms. Denies nasal or sinus congestion or discharge. Denies throat, tongue, or mouth swelling or difficulty swallowing. CARDIOVASCULAR: Denies chest pain. No racing heart RESPIRATORY: Denies cough, no shortness of breath, difficulty breathing. GASTROINTESTINAL: Denies abdominal pain or distention. Denies nausea, vomiting, or diarrhea. No rectal bleeding. GENITOURINARY: Urinary symptoms -- no. MUSCULOSKELETAL: No acute weakness SKIN: Denies rash, lesions or sores. HEMATOLOGIC : Denies easy bruising or bleeding. LYMPHATIC: Denies swollen, enlarged glands. NEUROLOGICAL: New weakness, headaches, slured speach - No PSYCHIATRIC: Changes anxiety or stress, depression, suicidal ideation, or homicidal ideation -- No ALL OTHER SYSTEMS REVIEWED AND NEGATIVE. Physical Exam Vital Signs: Temp Pulse Resp BP Pulse Ox 97.6 F 80 20 134/71 H 96 03/17/18 13:03 03/17/18 13:03 03/17/18 13:03 03/17/18 13:03 03/17/18 13:03 Intake & Output 03/16/18 03/17/18 03/18/18 06:59 06:59 06:59 Weight 81.647 kg GENERAL: Well-developed, elderly male, no acute distress HEENT: Normocephalic/atraumatic NECK supple, no JVD CARDIOVASCULAR: RRR, normal S1-S2 LUNGS: CTA bilaterally ABDOMEN: Soft, NT, NL bowel sounds EXTREMITIES: No edema, clubbing, cyanosis NEUROLOGICAL: Alert, oriented x 3, no acute/lateralizing weakness Results Laboratory Results: 03/17/18 13:09 03/17/18 13:09 03/17/18 03/17/18 13:09 13:09 WBC 9.4 RBC 5.15 Hgb 16.3 Hct 48.1 MCV 93 MCH 31.7 MCHC 33.9 RDW 14.6 H Plt Count 191 Seg Neutrophils % 76.5 Lymphocytes % 11.6 L Monocytes % 9.6 Eosinophils % 1.9 Basophils % 0.4 Absolute Neutrophils 7.2 Absolute Lymphocytes 1.1 Absolute Monocytes 0.9 Absolute Eosinophils 0.2 Absolute Basophils 0.0 Sodium 136.4 L Potassium 4.1 Chloride 100 Carbon Dioxide 31 H Anion Gap 5 BUN 13 Creatinine 0.87 Est GFR ( Amer) > 60 Est GFR (Non-Af Amer) > 60 Glucose 131 H Calcium 9.0 03/17/18 13:09 Troponin I < 0.012 Impressions: Head CT 03/17/18 13:35 IMPRESSION: No acute intracranial pathology. Small vessel white matter disease in keeping with advanced patient age. EVIDENCE OF ACUTE STROKE: NO. Assessment & Plan - Diagnosis (1) Syncope Is this a current diagnosis for this admission?: Yes (2) Bradycardia Is this a current diagnosis for this admission?: Yes (3) Nonspecific low blood pressure reading Is this a current diagnosis for this admission?: Yes (4) Hypertension Qualifiers: Hypertension type: essential hypertension Qualified Code(s): I10 - Essential (primary) hypertension Is this a current diagnosis for this admission?: Yes (5) Parkinson disease Is this a current diagnosis for this admission?: Yes - Plan Summary Plan Summary: Suspect patient had syncope vs near-syncope that is probably related to orthostatic hypotension, especially given his history of Parkinson's disease. Will admit to 24 hours observation. Will check orthostatic blood pressures. Will monitor on telemetry. Will obtain MRI of the head to rule out CVA. Likely discharge home tomorrow if stable. Fluid if further episodes of hypotension.
[2018-03-17] MEDS: ENOXAPARIN SODIUM INJ 40 MG/0.4 ML DISP.SYRIN SUBCUT SCH (21:55)
[2018-03-18 05:08] LABS: HEMATOCRIT 44.8 % (37.9-51.0); HEMOGLOBIN 15.3 g/dL (13.5-17.0); MEAN CORPUSCULAR HEMOGLOBIN 31.4 pg (27.0-33.4); MEAN CORPUSCULAR HGB CONC 34.2 g/dL (32.0-36.0); MEAN CORPUSCULAR VOLUME 92 fl (80-97); PLATELET COUNT 159 10^3/uL (150-450); RED BLOOD COUNT 4.88 10^6/uL (4.35-5.55); RED CELL DISTRIBUTION WIDTH 14.1 % (11.5-14.0); WHITE BLOOD COUNT 7.6 10^3/uL (4.0-10.5)
[2018-03-18 05:43] LABS: BLOOD UREA NITROGEN 14 mg/dL (7-20); CALCIUM 8.6 mg/dL (8.4-10.2); GLUCOSE 102 mg/dL (75-110); POTASSIUM 4.1 mmol/L (3.6-5.0)
[2018-03-18 06:56] LABS: CARBON DIOXIDE 27 mmol/L (22-30); CHLORIDE 103 mmol/L (98-107); SODIUM 136.8 mmol/L (137-145)
[2018-03-18 07:01] LABS: ANION GAP 7 (5-19)
[2018-03-18] MEDS ORDERED: HYDRALAZINE HCL INJ/PF 20 MG/1 ML SDV IV ONE (09:15)
[2018-03-18] MEDS: ENOXAPARIN SODIUM INJ 40 MG/0.4 ML DISP.SYRIN SUBCUT SCH (09:53)
[2018-03-18] MEDS ORDERED: LORATADINE 10 MG TABLET PO PRN (10:54)
[2018-03-18] MEDS ORDERED: SAW PALMETTO 80 MG PO SCH (11:00)
[2018-03-18] MEDS ORDERED: (PENDING PHARMACY ID) (Azelastine Hcl [Azelastine Hcl] 2 SPRAY) NASL SCH (11:00)
[2018-03-18] MEDS ORDERED: MONTELUKAST SODIUM 10 MG TABLET PO SCH (12:00)
[2018-03-18] MEDS ORDERED: MULTIVITAMIN TABLET PO SCH (12:00)
[2018-03-18] MEDS ORDERED: ASCORBIC ACID 500 MG TABLET PO SCH (12:00)
[2018-03-18] MEDS ORDERED: ASPIRIN 81 MG TABLET, CHEWABLE PO SCH (12:00)
[2018-03-18] MEDS ORDERED: BUDESONIDE/FORMOTEROL 80-4.5 MCG 60 PUFF/6.9 GM MDI IH SCH (13:00)
[2018-03-18] MEDS ORDERED: CYCLOSPORINE 0.05% OPH EMULSIO 0.4 ML DROPERETTE OU SCH (13:00)
[2018-03-18] MEDS ORDERED: CARBIDOPA/LEVODOPA 25-100 MG TABLET PO SCH (14:00)
--- NOTE | 2018-03-18 14:47 | RADIOLOGY REPORT (SQ) ---
EXAM DESCRIPTION: MRI HEAD WITHOUT COMPLETED DATE/TIME: 03/18/2018 2:36 pm REASON FOR STUDY: AMS, parkinson's disease G20 PARKINSON'S DISEASE COMPARISON: None. TECHNIQUE: Multiplanar imaging includes non-contrasted T1, T2, FLAIR, and diffusion with ADC map seq uences. Images stored on PACS. LIMITATIONS: None. FINDINGS: ANATOMY: No anomalies. Normal vascular flow voids. Pituitary fossa normal. CSF SPACES: Atrophy induced prominence of ventricles and CSF spaces. CEREBRUM: High signal intensity lesions scattered throughout the white matter on FLAIR imaging with d istribution suggesting micro-vascular ischemic changes. No evidence of hemorrhage, mass, or extraaxi al fluid collection. POSTERIOR FOSSA: No signal alteration. No hemorrhage. No edema, masses or mass effect. Internal henny tory canals, cerebello-pontine angles, mastoids normal. DIFFUSION IMAGING: Negative for acute or sub-acute infarction. ORBITS: No masses. Globes normal. OTHER: No other significant finding. IMPRESSION: Chronic ischemic changes. EVIDENCE OF ACUTE STROKE: NO. TECHNICAL DOCUMENTATION: JOB ID: [id number] [employer]- All Rights Reserved Reading location - IP/workstation name: [email or web address]
--- NOTE | 2018-03-18 15:08 | EKG REPORT ---
SEVERITY:- ABNORMAL ECG - SINUS RHYTHM LEFT ANTERIOR FASCICULAR BLOCK BORDERLINE PROLONGED QT INTERVAL : Confirmed by: Kiersten Moreland 18-Mar-2018 15:06:40
--- NOTE | 2018-03-18 16:48 | PDOC DISCHARGE SUMMARY ---
General - Admit/Disc Date/PCP Admission Date/Primary Care Provider: 03/17/18 15:55 THO IBARRA MD Discharge Date: 03/18/18 - Discharge Diagnosis (1) Syncope Is this a current diagnosis for this admission?: Yes (2) Bradycardia Is this a current diagnosis for this admission?: Yes (3) Nonspecific low blood pressure reading Is this a current diagnosis for this admission?: Yes (4) Hypertension Is this a current diagnosis for this admission?: Yes (5) Parkinson disease Is this a current diagnosis for this admission?: Yes - Additional Information Resuscitation Status: Full Code Home Medications: Azelastine HCl 2 spray NASL BID 02/08/15 Loratadine 10 mg PO DAILY PRN 02/08/15 Montelukast Sodium [Singulair 10 mg Tablet] 10 mg PO DAILY 02/08/15 Budesonide/Formoterol Fumarate [Symbicort HFA 80-4.5 mcg Inhaler 6.9 gm] 1 puff IH BID 03/18/15 Aspirin [Aspirin 81 mg Chewable Tablet] 81 mg PO DAILY tab.chew 03/24/15 Carbidopa/Levodopa [Sinemet 25-100 mg Tablet] 2 tab PO Q8 tablet 03/26/15 Cyclosporine 0.05% Oph Emulsio [Restasis 0.05% Oph Emulsion Pf 0.4 ml] 1 drop OU Q12 droperette 03/26/15 Ascorbic Acid [Vitamin C 500 mg Tablet] 500 mg PO DAILY 03/17/18 Cholecalciferol (Vitamin D3) [Vitamin D3 5000 unit Capsule] 5,000 unit PO DAILY 03/17/18 Multivitamin [Tab-A-Marcela (Multiple Vitamin) Tablet] 1 tab PO DAILY 03/17/18 Saw Callery 80 mg PO DAILY 03/17/18 History of Present Illness History of Present Illness: Patient was admitted after presentation nursing HPI below: "LENNIE SANTANA JR is a 82 year old male history of Parkinson's disease who is currently undergoing physical therapy. Patient had physical therapy today and when he sat on the chair later, he became unresponsive for about a minute. He had blanks stare by his . There were no shaking or frothing in the mouth. When he became responsive, he was not postictal. He presented to the ED where evaluation significant for stomach blood pressure in the 70s, heart rate 40s. He had a negative head CT. Patient referred for admission to observation." Hospital Course Hospital Course: Patient was admitted to 24 hours observation. He was monitored on telemetry. There were no recurrence episode of hypotension or bradycardia. In fact he had an episode of elevated blood pressure, states this happens when he is anxious lying he is on this. Blood pressure has since normalized. He had MRI of the head done that revealed chronic ischemic changes, but no acute CVA. He is doing better now, eating okay, no recurrence of near syncope altered mental status. Feels ready to go home, believes he has been at his baseline since admission. He is being discharged in stable condition. He is to follow-up with his primary care physician within 1 week. Physical Exam Vital Signs: Temp Pulse Resp BP Pulse Ox 97.6 F 86 16 147/66 H 96 03/18/18 16:07 03/18/18 16:07 03/18/18 16:07 03/18/18 16:07 03/18/18 16:07 Intake & Output 03/17/18 03/18/18 03/19/18 06:59 06:59 06:59 Intake Total 237 Balance 237 Weight 81.6 kg GENERAL: Well-developed, elderly male, no acute distress HEENT: Normocephalic/atraumatic NECK supple, no JVD CARDIOVASCULAR: RRR, normal S1-S2 LUNGS: CTA bilaterally ABDOMEN: Soft, NT, NL bowel sounds EXTREMITIES: No edema, clubbing, cyanosis NEUROLOGICAL: Alert, oriented x 3, no acute/lateralizing weakness Results Laboratory Results: 03/18/18 04:37 03/18/18 04:37 03/18/18 03/18/18 04:37 04:37 WBC 7.6 RBC 4.88 Hgb 15.3 Hct 44.8 MCV 92 MCH 31.4 MCHC 34.2 RDW 14.1 H Plt Count 159 Sodium 136.8 L Potassium 4.1 Chloride 103 Carbon Dioxide 27 Anion Gap 7 BUN 14 Creatinine 0.87 Est GFR ( Amer) > 60 Est GFR (Non-Af Amer) > 60 Glucose 102 Calcium 8.6 03/17/18 13:09 Troponin I < 0.012 Impressions: Head CT 03/17/18 13:35 IMPRESSION: No acute intracranial pathology. Small vessel white matter disease in keeping with advanced patient age. EVIDENCE OF ACUTE STROKE: NO. Head MRI 03/18/18 00:00 IMPRESSION: Chronic ischemic changes. EVIDENCE OF ACUTE STROKE: NO. Qualifiers - * PATIENT BEING DISCHARGED WITH ANY OF THE FOLLOWING DIAGNOSIS: No
[2018-03-18 20:12] VITALS: BP 124/71
[2018-03-19] MEDS ORDERED: CHOLECALCIFEROL (D3) 1,000 UNIT TABLET PO SCH (10:00)
== END 2018-03-18 21:20 | disposition home or self-care (01) ==
LOC: ER 12:43 → EH 15:55 → 4S 21:47
PROVIDERS: ADMIT Internal Medicine; ATTEND Internal Medicine
DX: R55 Syncope and collapse (principal); R00.1 Bradycardia, unspecified; R03.1 Nonspecific low blood-pressure reading; I10 Essential (primary) hypertension; G20 Parkinson's disease; R29.810 Facial weakness; Z79.899 Other long term (current) drug therapy; Z79.82 Long term (current) use of aspirin; Z90.49 Acquired absence of other specified parts of digestive tract; Z99.3 Dependence on wheelchair
CPT/HCPCS: 93005; 99285; 36415 ×2; 85025; 85027; 80048 ×2; 84484; 70551; 70450; 93010; A9270 ×5; J0360; J3490 ×2; J1650; G0378

== ENCOUNTER 2018-10-19 06:58 | Inpatient (IN) | payer MEDICARE, OTHER ==
[2018-10-19] MEDS ORDERED: IPRATROPIUM/ALBUTEROL 0.5-2.5 MG/3 ML AMPUL NEB ONE (07:12)
[2018-10-19] MEDS ORDERED: ONDANSETRON HCL INJ/PF 4 MG/2 ML SDV IV ONE (07:12)
[2018-10-19] MEDS ORDERED: NORMAL SALINE 1000 ML 1,000 ML IV ONE ×2 (07:13→23:30)
--- NOTE | 2018-10-19 07:17 | ER Document Report ---
ED General - General Chief Complaint: Shortness Of Breath Stated Complaint: COUGH Time Seen by Provider: 10/19/18 07:01 Mode of Arrival: Medic Information source: Patient, Emergency Med Personnel, OM Records Cannot obtain history due to: Dementia Notes: 82-year-old male with Parkinson's disease, asthma presents via EMS with complaint of cough, shortness of breath. Patient unable to provide any history due to mental status which we are unsure what his baseline is at this time. EMS reports that the patient's called when she awoke and noted the patient's cough to be worse, he had increased work of breathing. TRAVEL OUTSIDE OF THE [place] IN LAST 30 DAYS: No - HPI Associated symptoms: Productive cough, Shortness of breath Exacerbated by: Coughing - Related Data Allergies/Adverse Reactions: Opioids - Morphine Analogues [Opioids-Morphine & Related] Allergy (Verified 07/21/16 13:28) Confusion Past Medical History - General Information source: Emergency Med Personnel, OM Records Cannot obtain history due to: Dementia, Altered mental status - Social History Smoking Status: Unknown if Ever Smoked Lives with: Family Family History: DM, Malignancy, Other - COPD Patient has suicidal ideation: No Patient has homicidal ideation: No - Past Medical History Cardiac Medical History: Denies: Hx Congestive Heart Failure, Hx Heart Attack, Hx Hypertension Pulmonary Medical History: Reports: Hx Asthma, Hx Pneumonia Denies: Hx Bronchitis, Hx COPD, Hx Tuberculosis Neurological Medical History: Denies: Hx Seizures Renal/ Medical History: Denies: Hx Benign Prostatic Hyperplasia, Hx End Stage Renal Disease, Hx Kidney Stones, Hx Peritoneal Dialysis GI Medical History: Denies: Hx Cirrhosis, Hx Gastroesophageal Reflux Disease, Hx Ulcer Musculoskeletal Medical History: Reports Hx Arthritis, Denies Hx Multiple Sclerosis Psychiatric Medical History: Denies: Hx Bipolar Disorder, Hx Depression, Hx Schizophrenia Past Surgical History: Reports: Hx Cardiac Surgery - Bilateral, Hx Ch olecystectomy, Hx Herniorrhaphy. Denies: Hx Abdominal Surgery - Immunizations Hx Diphtheria, Pertussis, Tetanus Vaccination: Yes Hx Pneumococcal Vaccination: 12/20/12 Review of Systems - Review of Systems -: Yes ROS unobtainable due to patient's medical condition Physical Exam - Vital signs Vitals: Pulse Ox 89 L 10/19/18 07:03 - Notes Notes: PHYSICAL EXAMINATION: GENERAL: Ill-appearing, nontoxic, mild distress with increased work of breathing HEAD: Atraumatic, normocephalic. EYES: Pupils equal round and reactive to light, extraocular movements intact, sclera anicteric, conjunctiva are normal. ENT: Nares patent, oropharynx clear without exudates. Dry mucous membranes. NECK: Normal range of motion, supple without lymphadenopathy LUNGS: Coarse breath sounds bilaterally. On nasal cannula, hypoxic, tachypneic, HEART: Regular rate and rhythm without murmurs ABDOMEN: Soft, nontender, nondistended abdomen. No guarding, no rebound. No masses appreciated. Musculoskeletal: Normal range of motion, no pitting or edema. No cyanosis. NEUROLOGICAL: Alert and oriented. PSYCH: Normal mood, normal affect. SKIN: Warm, Dry, normal turgor, no rashes or lesions noted. Course - Re-evaluation Re-evalutation: Chest X-Ray 10/19/18 07:12 IMPRESSION: Heterogeneous opacity of the left lung base is slightly increased, concerning for infection or aspiration. Laboratory 10/19/18 10/19/18 10/19/18 07:28 07:28 07:28 WBC 10.0 RBC 5.13 Hgb 16.0 Hct 46.1 MCV 90 MCH 31.1 MCHC 34.6 RDW 13.9 Plt Count 227 Total Counted 100 Seg Neutrophils % Not Reportable Seg Neuts % (Manual) 86 H Band Neutrophils % 4 Lymphocytes % Not Reportable Lymphocytes % (Manual) 5 L Monocytes % Not Reportable Monocytes % (Manual) 4 Eosinophils % Not Reportable Eosinophils % (Manual) 0 Basophils % Not Reportable Basophils % (Manual) 1 Absolute Neutrophils Not Reportable Abs Neuts (Manual) 9.0 H Absolute Lymphocytes Not Reportable Abs Lymphs (Manual) 0.5 Absolute Monocytes Not Reportable Abs Monocytes (Manual) 0.4 Absolute Eosinophils Not Reportable Absolute Eos (Manual) 0.0 Absolute Basophils Not Reportable Abs Basophils (Manual) 0.1 Clumped Platelets PRESENT Platelet Comment ADEQUATE Polychromasia SLIGHT PT 13.9 INR 1.07 VBG pH VBG pCO2 VBG HCO3 VBG Base Excess Sodium Cancelled Potassium Cancelled Chloride Cancelled Carbon Dioxide Cancelled Anion Gap Cancelled BUN Cancelled Creatinine Cancelled Est GFR ( Amer) Cancelled Est GFR (Non-Af Amer) Cancelled Glucose Cancelled POC Glucose Lactic Acid Calcium Cancelled Total Bilirubin Cancelled Direct Bilirubin Cancelled Neonat Total Bilirubin Cancelled Neonat Direct Bilirubin Cancelled Neonat Indirect Bili Cancelled AST Cancelled ALT Cancelled Alkaline Phosphatase Cancelled Troponin I NT-Pro-B Natriuret Pep Total Protein Cancelled Albumin Cancelled Urine Color Urine Appearance Urine pH Ur Specific [place] Urine Protein Urine Glucose (UA) Urine Ketones Urine Blood Urine Nitrite Urine Bilirubin Urine Urobilinogen Ur Leukocyte Esterase Urine WBC (Auto) Urine RBC (Auto) Urine Mucus (Auto) Urine Ascorbic Acid 10/19/18 10/19/18 10/19/18 07:28 07:28 07:28 WBC RBC Hgb Hct MCV MCH MCHC RDW Plt Count Total Counted Seg Neutrophils % Seg Neuts % (Manual) Band Neutrophils % Lymphocytes % Lymphocytes % (Manual) Monocytes % Monocytes % (Manual) Eosinophils % Eosinophils % (Manual) Basophils % Basophils % (Manual) Absolute Neutrophils Abs Neuts (Manual) Absolute Lymphocytes Abs Lymphs (Manual) Absolute Monocytes Abs Monocytes (Manual) Absolute Eosinophils Absolute Eos (Manual) Absolute Basophils Abs Basophils (Manual) Clumped Platelets Platelet Comment Polychromasia PT INR VBG pH 7.44 H VBG pCO2 35.7 VBG HCO3 23.5 VBG Base Excess -0.1 Sodium Potassium Chloride Carbon Dioxide Anion Gap BUN Creatinine Est GFR ( Amer) Est GFR (Non-Af Amer) Glucose POC Glucose Lactic Acid 2.7 H Calcium Total Bilirubin Direct Bilirubin Neonat Total Bilirubin Neonat Direct Bilirubin Neonat Indirect Bili AST ALT Alkaline Phosphatase Troponin I Cancelled NT-Pro-B Natriuret Pep Total Protein Albumin Urine Color Urine Appearance Urine pH Ur Specific [place] Urine Protein Urine Glucose (UA) Urine Ketones Urine Blood Urine Nitrite Urine Bilirubin Urine Urobilinogen Ur Leukocyte Esterase Urine WBC (Auto) Urine RBC (Auto) Urine Mucus (Auto) Urine Ascorbic Acid 10/19/18 10/19/18 10/19/18 07:33 08:13 08:49 WBC RBC Hgb Hct MCV MCH MCHC RDW Plt Count Total Counted Seg Neutrophils % Seg Neuts % (Manual) Band Neutrophils % Lymphocytes % Lymphocytes % (Manual) Monocytes % Monocytes % (Manual) Eosinophils % Eosinophils % (Manual) Basophils % Basophils % (Manual) Absolute Neutrophils Abs Neuts (Manual) Absolute Lymphocytes Abs Lymphs (Manual) Absolute Monocytes Abs Monocytes (Manual) Absolute Eosinophils Absolute Eos (Manual) Absolute Basophils Abs Basophils (Manual) Clumped Platelets Platelet Comment Polychromasia PT INR VBG pH VBG pCO2 VBG HCO3 VBG Base Excess Sodium 130.4 L Potassium 4.8 Chloride 96 L Carbon Dioxide 25 Anion Gap 9 BUN 18 Creatinine 1.12 Est GFR ( Amer) > 60 Est GFR (Non-Af Amer) > 60 Glucose 144 H POC Glucose 107 Lactic Acid Calcium 8.7 Total Bilirubin 0.8 Direct Bilirubin 0.3 Neonat Total Bilirubin Not Reportable Neonat Direct Bilirubin Not Reportable Neonat Indirect Bili Not Reportable AST 20 ALT 13 L Alkaline Phosphatase 66 Troponin I NT-Pro-B Natriuret Pep Total Protein 5.8 L Albumin 3.1 L Urine Color YELLOW Urine Appearance CLEAR Urine pH 7.0 Ur Specific [place] 1.010 Urine Protein NEGATIVE Urine Glucose (UA) NEGATIVE Urine Ketones TRACE H Urine Blood SMALL H Urine Nitrite NEGATIVE Urine Bilirubin NEGATIVE Urine Urobilinogen NEGATIVE Ur Leukocyte Esterase NEGATIVE Urine WBC (Auto) 0 Urine RBC (Auto) 13 Urine Mucus (Auto) RARE Urine Ascorbic Acid 20 H 10/19/18 10/19/18 08:49 08:49 WBC RBC Hgb Hct MCV MCH MCHC RDW Plt Count Total Counted Seg Neutrophils % Seg Neuts % (Manual) Band Neutrophils % Lymphocytes % Lymphocytes % (Manual) Monocytes % Monocytes % (Manual) Eosinophils % Eosinophils % (Manual) Basophils % Basophils % (Manual) Absolute Neutrophils Abs Neuts (Manual) Absolute Lymphocytes Abs Lymphs (Manual) Absolute Monocytes Abs Monocytes (Manual) Absolute Eosinophils Absolute Eos (Manual) Absolute Basophils Abs Basophils (Manual) Clumped Platelets Platelet Comment Polychromasia PT INR VBG pH VBG pCO2 VBG HCO3 VBG Base Excess Sodium Potassium Chloride Carbon Dioxide Anion Gap BUN Creatinine Est GFR ( Amer) Est GFR (Non-Af Amer) Glucose POC Glucose Lactic Acid Calcium Total Bilirubin Direct Bilirubin Neonat Total Bilirubin Neonat Direct Bilirubin Neonat Indirect Bili AST ALT Alkaline Phosphatase Troponin I < 0.012 NT-Pro-B Natriuret Pep 1030 H Total Protein Albumin Urine Color Urine Appearance Urine pH Ur Specific [place] Urine Protein Urine Glucose (UA) Urine Ketones Urine Blood Urine Nitrite Urine Bilirubin Urine Urobilinogen Ur Leukocyte Esterase Urine WBC (Auto) Urine RBC (Auto) Urine Mucus (Auto) Urine Ascorbic Acid Chest X-Ray 10/19/18 07:12 IMPRESSION: Heterogeneous opacity of the left lung base is slightly increased, concerning for infection or aspiration. Head CT 10/19/18 09:52 IMPRESSION: MILD CHRONIC CHANGES OF ATROPHY AND MICROVASCULAR ISCHEMIA. NO ACUTE PROCESS. ETHMOID, MAXILLARY AND SPHENOID SINUS DISEASE. EVIDENCE OF ACUTE STROKE: NO Temp Pulse Resp BP Pulse Ox 101.0 F H 28 H 131/64 H 92 10/19/18 08:32 10/19/18 11:04 10/19/18 07:05 10/19/18 11:04 10/19/18 09:06 Spoke to patient's who states the patient is a full code and usually alert and oriented x4. Patient did receive Rocephin, Zosyn. He was placed on BiPAP for hypoxia and is currently 98% on room air found to be 87% on room air by EMS. Chest x-ray concerning for aspiration or infection. 82-year-old male with Parkinson's disease, asthma presents via EMS with complaint of cough, shortness of breath. Patient unable to provide any history due to mental status which we are unsure what his baseline is at this time. EMS reports that the patient's called when she awoke and noted the patient's cough to be worse, he had increased work of breathing. Upon arrival patient is febrile, tachycardic, hypoxic and has increased work of breathing. Patient was placed on BiPAP, received breathing treatments and did have improvement of his tachypnea and hypoxia. No family at the bedside initially. Chest x-ray showed left lower lobe pneumonia. CT of the head was obtained due to the patient's altered mental status and showed no acute process. Patient did receive IV fluids, ceftriaxone, Zosyn, rectal Tylenol. Patient did become hypotensive throughout his ED course and levo fed was initiated. Spoke to nurse practitioner Chantel Fox who has agreed to admit the patient to the ICU. 10/19/18 14:27 10/19/18 14:27 - Vital Signs Vital signs: Temp Pulse Resp BP Pulse Ox 101.0 F H 28 H 131/64 H 92 10/19/18 08:32 10/19/18 11:04 10/19/18 07:05 10/19/18 11:04 - Laboratory Result Diagrams: 10/19/18 07:28 10/19/18 08:49 Laboratory results interpreted by me: 10/19/18 10/19/18 10/19/18 07:28 07:28 07:28 Seg Neuts % (Manual) 86 H Lymphocytes % (Manual) 5 L Abs Neuts (Manual) 9.0 H VBG pH 7.44 H Sodium Chloride Glucose Lactic Acid 2.7 H ALT NT-Pro-B Natriuret Pep Total Protein Albumin Urine Ketones Urine Blood Urine Ascorbic Acid 10/19/18 10/19/18 10/19/18 08:13 08:49 08:49 Seg Neuts % (Manual) Lymphocytes % (Manual) Abs Neuts (Manual) VBG pH Sodium 130.4 L Chloride 96 L Glucose 144 H Lactic Acid ALT 13 L NT-Pro-B Natriuret Pep 1030 H Total Protein 5.8 L Albumin 3.1 L Urine Ketones TRACE H Urine Blood SMALL H Urine Ascorbic Acid 20 H - Diagnostic Test Radiology reviewed: Image reviewed, Reports reviewed - EKG Interpretation by Me EKG shows normal: Sinus rhythm Rate: Tachycardia [place]/QRS: Left axis deviation When compared to previous EKG there are: Changes noted Critical Care Note - Critical Care Note Total time excluding time spent on procedures (mins): 40 - Minutes of critical care time spent in direct contact evaluating and reevaluating the patient, treating symptoms, reviewing labs and studies and speaking with family and consultants excluding any procedures Discharge - Discharge Clinical Impression: Acute hypoxemic respiratory failure, Parkinson disease, Lactic acidosis Pneumonia Qualifiers: Pneumonia type: due to unspecified organism Laterality: left Lung location: lower lobe of lung Qualified Code(s): J18.1 - Lobar pneumonia, unspecified organism Sepsis Qualifiers: Sepsis type: sepsis due to unspecified organism Qualified Code(s): A41.9 - Sepsis, unspecified organism Altered mental status Qualifiers: Altered mental status type: unspecified Qualified Code(s): R41.82 - Altered mental status, unspecified Fever Qualifiers: Fever type: unspecified Qualified Code(s): R50.9 - Fever, unspecified Condition: Fair Disposition: ADMITTED INPATIENT Admitting Provider: Edwina (Hospitalist) Unit Admitted: ICU
[2018-10-19 07:52] LABS: HEMATOCRIT 46.1 % (37.9-51.0); MEAN CORPUSCULAR HEMOGLOBIN 31.1 pg (27.0-33.4); MEAN CORPUSCULAR HGB CONC 34.6 g/dL (32.0-36.0); MEAN CORPUSCULAR VOLUME 90 fl (80-97); RED BLOOD COUNT 5.13 10^6/uL (4.35-5.55); RED CELL DISTRIBUTION WIDTH 13.9 % (11.5-14.0); VENOUS BLOOD BASE EXCESS -0.1 mmol/L; VENOUS BLOOD HCO3 23.5 mmol/L (20-32); VENOUS BLOOD PCO2 35.7 mmHg (35-63); VENOUS BLOOD PH 7.44 (7.30-7.42)
[2018-10-19 07:59] LABS: INTERNATIONAL RATION (INR) 1.07; PROTHROMBIN TIME 13.9 SEC (11.4-15.4)
[2018-10-19] MEDS ORDERED: CEFTRIAXONE 1 GM/D5W RTU 1 GM/50 ML RTUPB IV ONE (08:00)
--- NOTE | 2018-10-19 08:11 | RADIOLOGY REPORT (SQ) ---
EXAM DESCRIPTION: CHEST SINGLE VIEW COMPLETED DATE/TIME: 10/19/2018 7:29 am REASON FOR STUDY: cough hypoxia COMPARISON: 03/27/2015 EXAM PARAMETERS: NUMBER OF VIEWS: One view. TECHNIQUE: Single frontal radiographic view of the chest acquired. RADIATION DOSE: NA LIMITATIONS: None. FINDINGS: LUNGS AND PLEURA: Heterogeneous opacity of the left lung base is slightly increased. MEDIASTINUM AND HILAR STRUCTURES: No masses. Contour normal. HEART AND VASCULAR STRUCTURES: Heart normal in size. Normal vasculature. BONES: No acute findings. HARDWARE: None in the chest. OTHER: No other significant finding. IMPRESSION: Heterogeneous opacity of the left lung base is slightly increased, concerning for infect ion or aspiration. TECHNICAL DOCUMENTATION: JOB ID: [id number] [employer]- All Rights Reserved Reading location - IP/workstation name: [email or web address]
[2018-10-19 08:18] LABS: ABSOLUTE LYMPHOCYTES# (MANUAL) 0.5 10^3/uL (0.5-4.7); ABSOLUTE MONOCYTES # (MANUAL) 0.4 10^3/uL (0.1-1.4); BAND NEUTROPHILS % (MANUAL) 4 % (3-5); BASOPHILS % (MANUAL) 1 % (0-2); EOSINOPHILS % (MANUAL) 0 % (0-6); LYMPHOCYTES % (MANUAL) 5 % (13-45); MONOCYTES % (MANUAL) 4 % (3-13); SEGMENTED NEUTROPHILS % (MAN) 86 % (42-78); TOTAL CELLS COUNTED 100
[2018-10-19] MEDS ORDERED: PIPERACILLIN/TAZOBACTAM 3.375 GM VIAL IV ONE (08:18)
[2018-10-19 08:19] LABS: PLATELET CLUMPS PRESENT; POLYCHROMASIA SLIGHT
[2018-10-19 08:20] LABS: PLATELET COMMENT ADEQUATE; PLATELET COUNT 227 10^3/uL (150-450)
[2018-10-19] MEDS ORDERED: ACETAMINOPHEN 650 MG SUPP.RECT PR ONE (08:24)
[2018-10-19 08:44] LABS: APPEARANCE,URINE CLEAR; BILIRUBIN,URINE NEGATIVE (NEGATIVE); COLOR,URINE YELLOW; GLUCOSE, URINE NEGATIVE (NEGATIVE); KETONES,URINE TRACE mg/dL (NEGATIVE); LEUKOCYTE ESTERASE,URINE NEGATIVE (NEGATIVE); NITRITE,URINE NEGATIVE (NEGATIVE); PROTEIN,URINE NEGATIVE (NEGATIVE); UROBILINOGEN,URINE NEGATIVE mg/dL (<2.0)
[2018-10-19 09:35] LABS: ALANINE AMINOTRANSFERASE 13 U/L (21-72); ALBUMIN 3.1 g/dL (3.5-5.0); ALKALINE PHOSPHATASE 66 U/L (38-126); ANION GAP 9 (5-19); ASPARTATE AMINO TRANSFERASE 20 U/L (17-59); BILIRUBIN,DIRECT 0.3 mg/dL (0.0-0.4); BILIRUBIN,TOTAL 0.8 mg/dL (0.2-1.3); BLOOD UREA NITROGEN 18 mg/dL (7-20); CALCIUM 8.7 mg/dL (8.4-10.2); CARBON DIOXIDE 25 mmol/L (22-30); CHLORIDE 96 mmol/L (98-107); GLUCOSE 144 mg/dL (75-110); POTASSIUM 4.8 mmol/L (3.6-5.0); TOTAL PROTEIN 5.8 g/dL (6.3-8.2)
--- NOTE | 2018-10-19 10:55 | RADIOLOGY REPORT (SQ) ---
EXAM DESCRIPTION: CT HEAD WITHOUT COMPLETED DATE/TIME: 10/19/2018 10:34 am REASON FOR STUDY: ams COMPARISON: 03/17/2018 TECHNIQUE: Axial images acquired through the brain without intravenous contrast. Images reviewed wi th bone, brain and subdural windows. Additional sagittal and coronal reconstructions were generated. Images stored on PACS. All CT scanners at this facility use dose modulation, iterative reconstruction, and/or weight based d osing when appropriate to reduce radiation dose to as low as reasonably achievable (ALARA). [facility]: Dose Right [facility]: CareDose [facility]: Dose Right [facility]: Teradose 4D [facility]: EPIOMED THERAPEUTICS RADIATION DOSE: CT Rad equipment meets quality standard of care and radiation dose reduction techniq ues were employed. CTDIvol: 53.2 mGy. DLP: 1017 mGy-cm. mGy. LIMITATIONS: None. FINDINGS: VENTRICLES: Prominent. CEREBRUM: No masses. No hemorrhage. No midline shift. Areas of low density in the white matter mos t likely due to chronic micro-vascular ischemic change. No evidence for acute infarction. CEREBELLUM: No masses. No hemorrhage. No alteration of density. No evidence for acute infarction. EXTRAAXIAL SPACES: Mild age-related involutional change. No fluid collections. No masses. ORBITS AND GLOBE: No intra- or extraconal masses. Normal contour of globe without masses. CALVARIUM: No fracture. PARANASAL SINUSES: There is ethmoid and maxillary sinusitis. Mild mucosal thickening in the sphenoid sinus. SOFT TISSUES: No mass or hematoma. OTHER: No other significant finding. IMPRESSION: MILD CHRONIC CHANGES OF ATROPHY AND MICROVASCULAR ISCHEMIA. NO ACUTE PROCESS. ETHMOID, MAXILLARY AND SPHENOID SINUS DISEASE. EVIDENCE OF ACUTE STROKE: NO TECHNICAL DOCUMENTATION: JOB ID: [id number] Quality ID # [id number]: Final reports with documentation of one or more dose reduction techniques (e.g., Au tomated exposure control, adjustment of the mA and/or kV according to patient size, use of iterative reconstruction technique) 2010 [employer]- All Rights Reserved Reading location - IP/workstation name: [email or web address]
[2018-10-19] MEDS ORDERED: NORMAL SALINE 1000 ML 1,000 ML IV PRN ×4 (11:42→18:47)
[2018-10-19] MEDS ORDERED: NOREPINEPHRINE BITARTRATE INJ/PF 4 MG/4 ML SDV IV ONE (11:55)
[2018-10-19] MEDS ORDERED: DEXTROSE 5%-WATER 250 ML with NOREPINEPHRINE BITARTRATE 4 MG IV PRN ×2 (12:03)
[2018-10-19] MEDS ORDERED: LEVALBUTEROL HCL NEB 1.25 MG/3 ML AMPUL NEB PRN (12:51)
[2018-10-19] MEDS ORDERED: GUAIFENESIN SYRP 200 MG/10 ML UDC PO PRN (12:51)
[2018-10-19] MEDS ORDERED: ACETAMINOPHEN 325 MG TABLET PO PRN (12:51)
[2018-10-19 13:23] LABS: ARTERIAL BLOOD BASE EXCESS -4.8 mmol/L; ARTERIAL BLOOD H2CO3 1.19 mmol/L (1.05-1.35); ARTERIAL BLOOD HCO3 20.6 mmol/L (20-24); ARTERIAL BLOOD O2 SATURATION 97.4 % (94-98); ARTERIAL BLOOD PCO2 39.5 mmHg (35-45); ARTERIAL BLOOD PH 7.34 (7.35-7.45); ARTERIAL BLOOD PO2 102.4 mmHg (80-100); ARTERIAL BLOOD TOTAL CO2 21.9 mmol/L (23-27)
[2018-10-19 13:24] LABS: ARTERIAL BLOOD FIO2 90%
[2018-10-19] MEDS: PIPERACILLIN SODIUM/TAZOBACTAM 3.375 GM in NORMAL SALINE 100 ML IV SCH ×2 (14:27→21:38)
[2018-10-19] MEDS: HEPARIN SOD (PORCINE) 5,000 UNIT/ML 1 ML VIAL SUBCUT SCH ×2 (14:27→21:38)
[2018-10-19] MEDS: IPRATROPIUM/ALBUTEROL 0.5-2.5 MG/3 ML AMPUL NEB SCH ×2 (15:14→23:58)
[2018-10-19] MEDS: AZITHROMYCIN 500 MG in DEXTROSE 5%-WATER 250 ML IV SCH (17:42)
[2018-10-19] MEDS ORDERED: (PENDING PHARMACY ID) (Budesonide/Formoterol Fumarate 1 PUFF) IH SCH (18:00)
[2018-10-19] MEDS ORDERED: FUROSEMIDE INJ/PF 20 MG/2 ML SDV IV ONE (19:15)
[2018-10-19] MEDS: DEXTROSE 5%-WATER 250 ML with NOREPINEPHRINE BITARTRATE 4 MG IV PRN ×2 (19:19)
--- NOTE | 2018-10-19 20:25 | PDOC H&P ---
History of Present Illness Admission Date/PCP: 10/19/18 11:48 RAUDEL IBARRA MD Patient complains of: fever, shortness of breath, confusion History of Present Illness: LENNIE CABRERA JR is a 82 year old male with a past medical history of Parkinson's disease and asthma who presented to the emergency department today with a complaint of sudden onset fevers and chills overnight with shortness of breath, productive cough, and confusion from baseline. Patient is typically alert and oriented x4; currently oriented to self only. Evaluation in the emergency department revealed hypoxia on room air (89%) fever (101), Tachycardia (HR 109), hypotension (88/59), and tachypnea (RR 28). Laboratory evaluation revealed normal WBC but with elevated neutrophil count, unremarkable chemistry, mildly elevated proBNP, benign urinalysis, benign head CT, and a chest x-ray demonstrating left lung pneumonia concerning for possible aspiration. Patient was provided IV fluid bolus for Sepsis x2 L received Rocephin IV x1 and placed on Zosyn and BiPAP support. He is referred to the hospitalist service for admission and management of the above-stated complaints and findings. Past Medical History Cardiac Medical History: Denies: Congestive Heart Failure, Myocardial Infarction, Hypertension Pulmonary Medical History: Reports: Asthma, Pneumonia Denies: Bronchitis, Chronic Obstructive Pulmonary Disease (COPD), Tuberculosis EENT Medical History: Reports: None Neurological Medical History: Reports: Other - Parkinson's Denies: Seizures Endocrine Medical History: Reports: None Renal/ Medical History: Denies: End Stage Renal Disease Malignancy Medical History: Reports: None GI Medical History: Denies: Cirrhosis, Gastroesophageal Reflux Disease Musculoskeltal Medical History: Reports: Arthritis Psychiatric Medical History: Denies: Bipolar Disorder, Depression Hematology: Denies: Anemia, Bleeding Tendencies Past Surgical History Past Surgical History: Reports: Cholecystectomy, Herniorrhaphy Social History Information Source: Patient Lives with: Family Smoking Status: Never Smoker Frequency of Alcohol Use: Social - 2 ounces bourbon nightly Hx Recreational Drug Use: No Drugs: None Hx Prescription Drug Abuse: No - Advance Directive Resuscitation Status: Full Code Surrogate healthcare decision maker:: The patient's , Minerva Cabrera, Family History Family History: DM, Malignancy, Other - COPD Parental Family History Reviewed: Yes Children Family History Reviewed: Yes Sibling(s) Family History Reviewed.: Yes Medication/Allergy Home Medications: Azelastine HCl 1 spray NASL BID 02/08/15 Loratadine 10 mg PO DAILY PRN 02/08/15 Montelukast Sodium [Singulair 10 mg Tablet] 10 mg PO DAILY 02/08/15 Budesonide/Formoterol Fumarate [Symbicort HFA 80-4.5 mcg Inhaler 6.9 gm] 1 puff IH BID 03/18/15 Carbidopa/Levodopa [Sinemet 25-100 mg Tablet] 2 tab PO Q8 tablet 03/26/15 Cyclosporine 0.05% Oph Emulsio [Restasis 0.05% Oph Emulsion Pf 0.4 ml] 1 drop OU Q12 droperette 03/26/15 Ascorbic Acid [Vitamin C 500 mg Tablet] 500 mg PO DAILY 03/17/18 Cholecalciferol (Vitamin D3) [Vitamin D3 5000 unit Capsule] 5,000 unit PO DAILY 03/17/18 Multivitamin [Tab-A-Marcela (Multiple Vitamin) Tablet] 1 tab PO DAILY 03/17/18 Allergies/Adverse Reactions: Opioids - Morphine Analogues [Opioids-Morphine & Related] Allergy (Verified 07/21/16 13:28) Confusion Review of Systems ROS unobtainable: Due to mental status Physical Exam Vital Signs: Temp Pulse Resp BP Pulse Ox 98.7 F 90 25 H 92/64 L 100 10/19/18 18:48 10/19/18 18:48 10/19/18 18:48 10/19/18 18:48 10/19/18 18:48 Intake & Output 10/18/18 10/19/18 10/20/18 06:59 06:59 06:59 Intake Total 2150 Output Total 650 Balance 1500 Weight 83.6 kg General appearance: PRESENT: mild distress, well-developed, well-nourished, other - Acutely ill-appearing Head exam: PRESENT: atraumatic, normocephalic Eye exam: PRESENT: conjunctiva pink, EOMI, PERRLA. ABSENT: scleral icterus Ear exam: PRESENT: normal external ear exam Mouth exam: PRESENT: moist, tongue midline Neck exam: ABSENT: carotid bruit, JVD, lymphadenopathy, thyromegaly Respiratory exam: PRESENT: decreased breath sounds - Left lower serra, rhonchi, symmetrical, tachypnea, other - On BiPAP. ABSENT: rales, wheezes Cardiovascular exam: PRESENT: +S1, +S2, tachycardia. ABSENT: diastolic murmur, rubs, systolic murmur Pulses: PRESENT: normal dorsalis pedis pul Vascular exam: PRESENT: normal capillary refill GI/Abdominal exam: PRESENT: normal bowel sounds, soft. ABSENT: distended, guarding, mass, organolmegaly, rebound, tenderness Rectal exam: PRESENT: deferred Extremities exam: PRESENT: full ROM - Moves all extremities spontaneously. ABSENT: calf tenderness, clubbing, pedal edema Neurological exam: PRESENT: CN II-XII grossly intact, other - Arousable, oriented to self only, noted to have visual hallucinations (reaching for things in the air). ABSENT: motor sensory deficit Psychiatric exam: ABSENT: homicidal ideation, suicidal ideation Skin exam: PRESENT: dry, intact, warm. ABSENT: cyanosis, rash Results Laboratory Results: 10/19/18 07:28 10/19/18 08:49 10/19/18 10/19/18 10/19/18 07:28 07:28 07:28 WBC 10.0 RBC 5.13 Hgb 16.0 Hct 46.1 MCV 90 MCH 31.1 MCHC 34.6 RDW 13.9 Plt Count 227 Seg Neutrophils % Not Reportable Lymphocytes % Not Reportable Monocytes % Not Reportable Eosinophils % Not Reportable Basophils % Not Reportable Absolute Neutrophils Not Reportable Absolute Lymphocytes Not Reportable Absolute Monocytes Not Reportable Absolute Eosinophils Not Reportable Absolute Basophils Not Reportable Carbonic Acid HCO3/H2CO3 Ratio ABG pH ABG pCO2 ABG pO2 ABG HCO3 ABG O2 Saturation ABG Base Excess VBG pH VBG pCO2 VBG HCO3 VBG Base Excess FiO2 Sodium Cancelled Potassium Cancelled Chloride Cancelled Carbon Dioxide Cancelled Anion Gap Cancelled BUN Cancelled Creatinine Cancelled Est GFR ( Amer) Cancelled Est GFR (Non-Af Amer) Cancelled Glucose Cancelled Lactic Acid 2.7 H Calcium Cancelled Total Bilirubin Cancelled AST Cancelled ALT Cancelled Alkaline Phosphatase Cancelled Total Protein Cancelled Albumin Cancelled Urine Color Urine Appearance Urine pH Ur Specific [place] Urine Protein Urine Glucose (UA) Urine Ketones Urine Blood Urine Nitrite Ur Leukocyte Esterase Urine WBC (Auto) Urine RBC (Auto) 10/19/18 10/19/18 10/19/18 07:28 08:13 08:49 WBC RBC Hgb Hct MCV MCH MCHC RDW Plt Count Seg Neutrophils % Lymphocytes % Monocytes % Eosinophils % Basophils % Absolute Neutrophils Absolute Lymphocytes Absolute Monocytes Absolute Eosinophils Absolute Basophils Carbonic Acid HCO3/H2CO3 Ratio ABG pH ABG pCO2 ABG pO2 ABG HCO3 ABG O2 Saturation ABG Base Excess VBG pH 7.44 H VBG pCO2 35.7 VBG HCO3 23.5 VBG Base Excess -0.1 FiO2 Sodium 130.4 L Potassium 4.8 Chloride 96 L Carbon Dioxide 25 Anion Gap 9 BUN 18 Creatinine 1.12 Est GFR ( Amer) > 60 Est GFR (Non-Af Amer) > 60 Glucose 144 H Lactic Acid Calcium 8.7 Total Bilirubin 0.8 AST 20 ALT 13 L Alkaline Phosphatase 66 Total Protein 5.8 L Albumin 3.1 L Urine Color YELLOW Urine Appearance CLEAR Urine pH 7.0 Ur Specific [place] 1.010 Urine Protein NEGATIVE Urine Glucose (UA) NEGATIVE Urine Ketones TRACE H Urine Blood SMALL H Urine Nitrite NEGATIVE Ur Leukocyte Esterase NEGATIVE Urine WBC (Auto) 0 Urine RBC (Auto) 13 10/19/18 13:13 WBC RBC Hgb Hct MCV MCH MCHC RDW Plt Count Seg Neutrophils % Lymphocytes % Monocytes % Eosinophils % Basophils % Absolute Neutrophils Absolute Lymphocytes Absolute Monocytes Absolute Eosinophils Absolute Basophils Carbonic Acid 1.19 HCO3/H2CO3 Ratio 17:1 ABG pH 7.34 L ABG pCO2 39.5 ABG pO2 102.4 H ABG HCO3 20.6 ABG O2 Saturation 97.4 ABG Base Excess -4.8 VBG pH VBG pCO2 VBG HCO3 VBG Base Excess FiO2 90% Sodium Potassium Chloride Carbon Dioxide Anion Gap BUN Creatinine Est GFR ( Amer) Est GFR (Non-Af Amer) Glucose Lactic Acid Calcium Total Bilirubin AST ALT Alkaline Phosphatase Total Protein Albumin Urine Color Urine Appearance Urine pH Ur Specific [place] Urine Protein Urine Glucose (UA) Urine Ketones Urine Blood Urine Nitrite Ur Leukocyte Esterase Urine WBC (Auto) Urine RBC (Auto) 10/19/18 10/19/18 10/19/18 07:28 08:49 08:49 Troponin I Cancelled < 0.012 NT-Pro-B Natriuret Pep 1030 H Impressions: Chest X-Ray 10/19/18 07:12 IMPRESSION: Heterogeneous opacity of the left lung base is slightly increased, concerning for infection or aspiration. Head CT 10/19/18 09:52 IMPRESSION: MILD CHRONIC CHANGES OF ATROPHY AND MICROVASCULAR ISCHEMIA. NO ACUTE PROCESS. ETHMOID, MAXILLARY AND SPHENOID SINUS DISEASE. EVIDENCE OF ACUTE STROKE: NO Assessment and Plan - Diagnosis (1) Left lower lobe pneumonia Qualifiers: Aspiration pneumonia type: unspecified Is this a current diagnosis for this admission?: Yes Plan: Community-acquired versus aspiration pneumonia. CXR reveals left lower lobe pneumonia. WBCs are normal. However, patient with elevated temperature, tachycardia, tachypnea, hypoxia, and hypotension with elevated lactic acid. Blood cultures are pending. Sputum cultures pending. Patient is admitted to the ICU on continuous cardiac telemetry. Provide supplemental oxygen via nasal cannula or BiPAP as needed to maintain saturations greater than 90%. Is empirically placed on IV azithromycin and Zosyn for coverage of community-acquired and possible aspiration (Pseudomonas) event. He is started on scheduled and as needed nebulizer treatments. Start Mucinex twice daily. Robitussin as needed for cough. Encourage pulmonary toilet when able to participate. (2) Sepsis Is this a current diagnosis for this admission?: Yes Plan: The patient is admitted with sepsis due to left lower lobe pneumonia, present on arrival, and evidenced by hypoxia on room air, tachycardia, tachypnea, hypotension (requiring pressor support), elevated lactic acid, altered mental status, and acutely ill appearance. Patient received a total of 3 L NS bolus followed by IV maintenance fluids. He continues to have hypotension requiring levophed for pressor support. Have discussed with the patient's spouse and obtained consent for central line placement if required tonight. He is admitted to the ICU. Cultures and antibiotics as above. (3) Acute respiratory failure with hypoxia Is this a current diagnosis for this admission?: Yes Plan: Secondary to #1. Management as above. (4) Altered mental status Qualifiers: Altered mental status type: delirium Qualified Code(s): R41.0 - Disorientation, unspecified Is this a current diagnosis for this admission?: Yes Plan: Secondary to sepsis and pneumonia resulting in hypoxemia. Management as above. Next line supportive care. Fall and aspiration precautions. (5) Lactic acidosis Is this a current diagnosis for this admission?: Yes Plan: Lactic acid of 2.7; secondary to sepsis resulting from left lower lobe pneumonia. IV fluids and pressor support as above. Next line cultures and antibiotics as above. Follow-up lactic acid level pending. (6) Parkinson disease Is this a current diagnosis for this admission?: Yes Plan: Continue home dose Sinemet. Fall and aspiration precautions. - Time Time Spent with patient: 35 or more minutes Medications reviewed and adjusted accordingly: Yes - Inpatient Certification Based on my medical assessment, after consideration of the patient's comorbidities, presenting symptoms, or acuity I expect that the services needed warrant INPATIENT care.: Yes I certify that my determination is in accordance with my understanding of Medicare's requirements for reasonable and necessary INPATIENT services [42 CFR 412.3e].: Yes Medical Necessity: Need Close Monitoring Due to Risk of Patient Decompensation, Need For IV Fluids, Need For Continuous Telemetry Monitoring, Need for IV Antibiotics, Risk of Complication if Not Cared For in Hospital
[2018-10-19] MEDS: CARBIDOPA/LEVODOPA 25-100 MG TABLET PO SCH (21:39)
[2018-10-19] MEDS: MONTELUKAST SODIUM 10 MG TABLET PO SCH (21:39)
[2018-10-19] MEDS: CYCLOSPORINE 0.05% OPH EMULSIO 0.4 ML DROPERETTE OU SCH (21:39)
[2018-10-19] MEDS ORDERED: GUAIFENESIN 600 MG TABLET.SA PO SCH (22:00)
[2018-10-19] MEDS ORDERED: LACTULOSE SYRUP 20 GM/30 ML UDCUP PO ONE (23:10)
[2018-10-20 02:21] LABS: ANION GAP 10 (5-19); BLOOD UREA NITROGEN 22 mg/dL (7-20); CALCIUM 7.6 mg/dL (8.4-10.2); CARBON DIOXIDE 19 mmol/L (22-30); CHLORIDE 105 mmol/L (98-107); GLUCOSE 79 mg/dL (75-110); POTASSIUM 4.3 mmol/L (3.6-5.0)
[2018-10-20 02:35] LABS: HEMATOCRIT 39.4 % (37.9-51.0); MEAN CORPUSCULAR HEMOGLOBIN 30.5 pg (27.0-33.4); MEAN CORPUSCULAR HGB CONC 33.4 g/dL (32.0-36.0); MEAN CORPUSCULAR VOLUME 92 fl (80-97); PLATELET COUNT 158 10^3/uL (150-450); RED CELL DISTRIBUTION WIDTH 14.1 % (11.5-14.0)
[2018-10-20 02:37] LABS: HEMOGLOBIN 13.1 g/dL (13.5-17.0); WHITE BLOOD COUNT 29.9 10^3/uL (4.0-10.5)
[2018-10-20] MEDS ORDERED: DEXTROSE 50%-WATER 25 GM/50 ML DISP.SYRIN IV ONE (03:00)
[2018-10-20] MEDS: PIPERACILLIN SODIUM/TAZOBACTAM 3.375 GM in NORMAL SALINE 100 ML IV SCH ×4 (03:00→22:12)
[2018-10-20 03:05] LABS: BASOPHILS % (MANUAL) 0 % (0-2); TOTAL CELLS COUNTED 100
[2018-10-20 03:08] LABS: ANISOCYTOSIS SLIGHT
[2018-10-20 03:37] LABS: ABSOLUTE LYMPHOCYTES# (MANUAL) 2.1 10^3/uL (0.5-4.7); ABSOLUTE MONOCYTES # (MANUAL) 0.9 10^3/uL (0.1-1.4); BAND NEUTROPHILS % (MANUAL) 6 % (3-5); EOSINOPHILS % (MANUAL) 0 % (0-6); LYMPHOCYTES % (MANUAL) 7 % (13-45); MONOCYTES % (MANUAL) 3 % (3-13); SEGMENTED NEUTROPHILS % (MAN) 84 % (42-78)
[2018-10-20 03:38] LABS: PLATELET COMMENT ADEQUATE
[2018-10-20] MEDS ORDERED: VANCOMYCIN HCL INJ 1000 MG VIAL IV PRN (03:53)
[2018-10-20] MEDS ORDERED: DEXTROSE 5% IV ONE (04:00)
[2018-10-20] MEDS ORDERED: WATER IV ONE (04:00)
[2018-10-20] MEDS ORDERED: PHARMACY COMMUNICATION ORDER MC SCH (04:00)
[2018-10-20] MEDS ORDERED: VANCOMYCIN HCL IV ONE (04:00)
[2018-10-20] MEDS: HEPARIN SOD (PORCINE) 5,000 UNIT/ML 1 ML VIAL SUBCUT SCH ×3 (06:30→22:10)
[2018-10-20] MEDS: PANTOPRAZOLE SODIUM 40 MG TABLET.DR PO SCH (06:30)
[2018-10-20] MEDS: CARBIDOPA/LEVODOPA 25-100 MG TABLET PO SCH ×3 (06:30→22:13)
[2018-10-20] MEDS: IPRATROPIUM/ALBUTEROL 0.5-2.5 MG/3 ML AMPUL NEB SCH ×2 (08:17→16:07)
[2018-10-20] MEDS: CHOLECALCIFEROL (D3) 1,000 UNIT (25 MCG) TABLET PO SCH (09:10)
[2018-10-20] MEDS: MULTIVITAMIN TABLET PO SCH (09:11)
[2018-10-20] MEDS: ASCORBIC ACID 500 MG TABLET PO SCH (09:11)
[2018-10-20] MEDS: GUAIFENESIN 600 MG TABLET.SA PO SCH ×2 (09:11→22:11)
[2018-10-20] MEDS: FLUTICASONE/VILANTEROL 100-25 MCG/DOSE IH SCH (09:12)
[2018-10-20] MEDS: CYCLOSPORINE 0.05% OPH EMULSIO 0.4 ML DROPERETTE OU SCH ×2 (09:12→22:10)
--- NOTE | 2018-10-20 12:24 | PDOC PROGRESS REPORT ---
Subjective Progress Note for:: 10/20/18 Subjective:: This is 82 years old male patient past medical history of Parkinson's disease and bronchial asthma brought from home chief complaint of shortness of breath, confusion and fever. In ER patient found to be febrile with T-max of 101 tachycardic with heart rate of 109, hypotensive with blood pressure of 88/59, tachypnea with respiratory rate of 28. Yesterday his white cell count was 10,000 today it is 29,000. His chest x-ray shows left lower lobe consolid ation. Patient is being treated as a case of pneumonia. He has been started on vancomycin and Zosyn. I will de-escalate his antibiotic based on his culture results and clinical response. This morning patient seen resting in bed comfortably he is awake alert and oriented. Reason For Visit: PNEUMONIA,SEPSIS Physical Exam Vital Signs: Temp Pulse Resp BP Pulse Ox 98.0 F 99 25 H 120/55 L 100 10/20/18 10:00 10/20/18 11:29 10/20/18 10:43 10/20/18 10:43 10/20/18 10:43 Intake & Output 10/19/18 10/20/18 10/21/18 06:59 06:59 06:59 Intake Total 2600 176 Output Total 2875 175 Balance -275 1 Weight 82.5 kg General appearance: PRESENT: mild distress Head exam: PRESENT: atraumatic Eye exam: PRESENT: conjunctiva pink Neck exam: ABSENT: carotid bruit, JVD, lymphadenopathy, thyromegaly Respiratory exam: PRESENT: decreased breath sounds, rales - Left lung base Cardiovascular exam: PRESENT: RRR. ABSENT: diastolic murmur, rubs, systolic murmur GI/Abdominal exam: PRESENT: normal bowel sounds, soft. ABSENT: distended, guarding, mass, organolmegaly, rebound, tenderness Neurological exam: PRESENT: alert, awake Results Laboratory Results: 10/20/18 01:55 10/20/18 01:55 10/19/18 10/19/18 10/19/18 13:13 21:23 22:08 WBC RBC Hgb Hct MCV MCH MCHC RDW Plt Count Seg Neutrophils % Lymphocytes % Monocytes % Eosinophils % Basophils % Absolute Neutrophils Absolute Lymphocytes Absolute Monocytes Absolute Eosinophils Absolute Basophils Carbonic Acid 1.19 HCO3/H2CO3 Ratio 17:1 ABG pH 7.34 L ABG pCO2 39.5 ABG pO2 102.4 H ABG HCO3 20.6 ABG O2 Saturation 97.4 ABG Base Excess -4.8 FiO2 90% Sodium Potassium Chloride Carbon Dioxide Anion Gap BUN Creatinine Est GFR ( Amer) Est GFR (Non-Af Amer) Glucose Lactic Acid Cancelled 3.4 H Calcium 10/20/18 10/20/18 10/20/18 01:55 01:55 01:55 WBC 29.9 H D RBC 4.30 L Hgb 13.1 L D Hct 39.4 MCV 92 MCH 30.5 MCHC 33.4 RDW 14.1 H Plt Count 158 Seg Neutrophils % Not Reportable Lymphocytes % Not Reportable Monocytes % Not Reportable Eosinophils % Not Reportable Basophils % Not Reportable Absolute Neutrophils Not Reportable Absolute Lymphocytes Not Reportable Absolute Monocytes Not Reportable Absolute Eosinophils Not Reportable Absolute Basophils Not Reportable Carbonic Acid HCO3/H2CO3 Ratio ABG pH ABG pCO2 ABG pO2 ABG HCO3 ABG O2 Saturation ABG Base Excess FiO2 Sodium 134.0 L Potassium 4.3 Chloride 105 Carbon Dioxide 19 L Anion Gap 10 BUN 22 H Creatinine 1.35 H Est GFR ( Amer) > 60 Est GFR (Non-Af Amer) 50 L Glucose 79 Lactic Acid 3.9 H Calcium 7.6 L 10/20/18 06:15 WBC RBC Hgb Hct MCV MCH MCHC RDW Plt Count Seg Neutrophils % Lymphocytes % Monocytes % Eosinophils % Basophils % Absolute Neutrophils Absolute Lymphocytes Absolute Monocytes Absolute Eosinophils Absolute Basophils Carbonic Acid HCO3/H2CO3 Ratio ABG pH ABG pCO2 ABG pO2 ABG HCO3 ABG O2 Saturation ABG Base Excess FiO2 Sodium Potassium Chloride Carbon Dioxide Anion Gap BUN Creatinine Est GFR ( Amer) Est GFR (Non-Af Amer) Glucose Lactic Acid 2.3 H Calcium 10/19/18 10/19/18 10/19/18 07:28 08:49 08:49 Troponin I Cancelled < 0.012 NT-Pro-B Natriuret Pep 1030 H Impressions: Chest X-Ray 10/19/18 07:12 IMPRESSION: Heterogeneous opacity of the left lung base is slightly increased, concerning for infection or aspiration. Head CT 10/19/18 09:52 IMPRESSION: MILD CHRONIC CHANGES OF ATROPHY AND MICROVASCULAR ISCHEMIA. NO ACUTE PROCESS. ETHMOID, MAXILLARY AND SPHENOID SINUS DISEASE. EVIDENCE OF ACUTE STROKE: NO Assessment and Plan - Diagnosis (1) Sepsis Is this a current diagnosis for this admission?: Yes Plan: Sepsis as evidenced by fever, tachycardia, tachypnea, hypotension and source of infection. (2) Acute metabolic encephalopathy Is this a current diagnosis for this admission?: Yes Plan: Improving (3) Acute hypoxemic respiratory failure Is this a current diagnosis for this admission?: Yes Plan: Has be resolving. Continue current regimen (4) Lactic acidosis Is this a current diagnosis for this admission?: Yes Plan: Improving (5) Parkinsons disease Is this a current diagnosis for this admission?: Yes Plan: Stable
--- NOTE | 2018-10-20 15:10 | RADIOLOGY REPORT (SQ) ---
EXAM DESCRIPTION: PICC INSERTION; U/S GUIDE FOR VASCULAR ACCESS COMPLETED DATE/TIME: 10/20/2018 2:23 pm REASON FOR STUDY: PICC LINE PLACEMENT; IV ACCESSS COMPARISON: AP chest 10/19/2018 CT chest 10/25/2017 FLUOROSCOPY TIME: No fluoroscopy used, study was performed portably 3 chest films and 1 ultrasound image saved to PACS. TECHNIQUE: Fluoroscopic and ultrasound guided PICC placement. LIMITATIONS: None. PROCEDURE: After written consent and assessment were obtained Ultrasound evaluation of potential acc ess sites were performed. After successfully identifying a patent left basilic, the left arm was prep ped and draped in a sterile fashion along with the ultrasound probe. The entry site was anesthetized with 1% lidocaine. A 21 gauge 7 cm needle was advanced through the skin and into the basilic vein und er live ultrasound guidance. An ultrasound image was saved to PACS confirming access site. A .018 g uide wire was then inserted through the needle and into the venous system. The needle was then remove d and an 11 blade scalpel was used to make a 1cm skin incision. A 5 fr peel-away sheath was advanced over the wire and into the venous system. A measurement was then made using the existing wire and li ve fluoroscopic guidance. The wire was then removed and trimmed. The PICC was advanced through the pe el-away sheath and into the venous system. The peel-away sheath was removed and the catheter was adhe red to the patients arm with a stat lock. The catheter was then aspirated and flushed and a sterile b andage was placed over the access site. A final chest film was saved to PACS confirming the catheter tip within the superior vena cava. Pers istent left retrocardiac consolidation worrisome for pneumonia. Trace left pleural fluid. No right- sided infiltrates. No cardiomegaly. IMPRESSION: SUCCESSFUL PLACEMENT OF A 5 FR DUAL LUMEN 42 CM PICC IN THE LEFT BASILIC VEIN. COMMENT: Patient medication list reviewed: Yes- Quality ID# 130:Eligible professional attests to doc umenting in the medical record they obtained, updated, or reviewed the patient's current medications. . Quality ID 145: Final reports for procedures using fluoroscopy that document radiation exposure germán manny, or exposure time and number of fluorographic images (if radiation exposure indices are not avail able) Quality ID #76: The patient was prepped and draped using maximum sterile barrier technique including cap, mask, sterile gown, sterile gloves, a large sterile sheet, hand hygiene, and 2% Chlorhexidine fo r cutaneous antisepsis. When ultrasound is used, sterile ultrasound techniques are followed requiring sterile gel and sterile probes. TECHNICAL DOCUMENTATION: JOB ID: [id number] [employer]- All Rights Reserved rev-08/06 Reading location - IP/workstation name: [email or web address]
[2018-10-20] MEDS: AZITHROMYCIN 500 MG in DEXTROSE 5%-WATER 250 ML IV SCH (17:36)
[2018-10-20] MEDS: MONTELUKAST SODIUM 10 MG TABLET PO SCH (22:11)
[2018-10-20] MEDS: NORMAL SALINE 10 ML SDV (SCHEDULED) IV SCH (22:12)
[2018-10-20] MEDS: NORMAL SALINE 1000 ML 1,000 ML IV PRN (22:12)
[2018-10-21] MEDS: DEXTROSE 5%-WATER 250 ML with NOREPINEPHRINE BITARTRATE 4 MG IV PRN ×2 (00:03)
[2018-10-21] MEDS: IPRATROPIUM/ALBUTEROL 0.5-2.5 MG/3 ML AMPUL NEB SCH ×3 (00:36→16:25)
[2018-10-21] MEDS: PIPERACILLIN SODIUM/TAZOBACTAM 3.375 GM in NORMAL SALINE 100 ML IV SCH ×4 (03:17→20:23)
[2018-10-21] MEDS: VANCOMYCIN HCL 1,500 MG in DEXTROSE 5%-WATER 250 ML IV SCH (05:34)
[2018-10-21] MEDS: CARBIDOPA/LEVODOPA 25-100 MG TABLET PO SCH ×3 (05:35→21:19)
[2018-10-21] MEDS: PANTOPRAZOLE SODIUM 40 MG TABLET.DR PO SCH (05:35)
[2018-10-21] MEDS: HEPARIN SOD (PORCINE) 5,000 UNIT/ML 1 ML VIAL SUBCUT SCH ×3 (05:38→21:19)
[2018-10-21 06:41] LABS: ANION GAP 8 (5-19); BLOOD UREA NITROGEN 20 mg/dL (7-20); CARBON DIOXIDE 21 mmol/L (22-30); CHLORIDE 107 mmol/L (98-107); GLUCOSE 88 mg/dL (75-110); POTASSIUM 3.1 mmol/L (3.6-5.0)
[2018-10-21 06:56] LABS: CALCIUM 6.9 mg/dL (8.4-10.2)
[2018-10-21 07:06] LABS: ALBUMIN 1.9 g/dL (3.5-5.0)
[2018-10-21 08:35] LABS: HEMATOCRIT 35.9 % (37.9-51.0); MEAN CORPUSCULAR HEMOGLOBIN 30.6 pg (27.0-33.4); MEAN CORPUSCULAR HGB CONC 33.4 g/dL (32.0-36.0); MEAN CORPUSCULAR VOLUME 92 fl (80-97); PLATELET COUNT 146 10^3/uL (150-450); RED BLOOD COUNT 3.92 10^6/uL (4.35-5.55); RED CELL DISTRIBUTION WIDTH 14.3 % (11.5-14.0); WHITE BLOOD COUNT 20.8 10^3/uL (4.0-10.5)
[2018-10-21] MEDS: FLUTICASONE/VILANTEROL 100-25 MCG/DOSE IH SCH (09:59)
[2018-10-21] MEDS: NORMAL SALINE 10 ML SDV (SCHEDULED) IV SCH ×2 (09:59→21:20)
[2018-10-21] MEDS: GUAIFENESIN 600 MG TABLET.SA PO SCH ×2 (09:59→21:20)
[2018-10-21] MEDS: CYCLOSPORINE 0.05% OPH EMULSIO 0.4 ML DROPERETTE OU SCH ×2 (09:59→21:19)
[2018-10-21] MEDS: CHOLECALCIFEROL (D3) 1,000 UNIT (25 MCG) TABLET PO SCH (10:00)
[2018-10-21] MEDS: ASCORBIC ACID 500 MG TABLET PO SCH (10:00)
[2018-10-21] MEDS: MULTIVITAMIN TABLET PO SCH (10:00)
--- NOTE | 2018-10-21 10:58 | RADIOLOGY REPORT (SQ) ---
EXAM DESCRIPTION: CHEST SINGLE VIEW COMPLETED DATE/TIME: 10/21/2018 9:59 am REASON FOR STUDY: pna COMPARISON: Chest films 10/20/2018, 10/19/2018, 08/14/2016 CT chest 10/25/2017 EXAM PARAMETERS: NUMBER OF VIEWS: One view. TECHNIQUE: Single frontal radiographic view of the chest acquired. RADIATION DOSE: NA LIMITATIONS: None. FINDINGS: LUNGS AND PLEURA: Right lung is clear. No right pleural effusion or pneumothorax. On the left side, patchy airspace disease is present in the left lower lobe with trace left pleural e ffusion. No left pneumothorax. MEDIASTINUM AND HILAR STRUCTURES: No masses. Contour normal. HEART AND VASCULAR STRUCTURES: Heart normal in size. Normal vasculature. BONES: No acute findings. HARDWARE: Left-sided PICC line tip superior vena cava. OTHER: No other significant finding. IMPRESSION: Patchy left basilar airspace disease with persistent trace left pleural effusion. This is similar compared to yesterday TECHNICAL DOCUMENTATION: JOB ID: [id number] [employer]- All Rights Reserved Reading location - IP/workstation name: [email or web address]
--- NOTE | 2018-10-21 11:18 | PDOC PROGRESS REPORT ---
Subjective Progress Note for:: 10/21/18 Subjective:: This is 82 years old male patient past medical history of Parkinson's disease and bronchial asthma brought from home chief complaint of shortness of breath, confusion and fever. In ER patient found to be febrile with T-max of 101 tachycardic with heart rate of 109, hypotensive with blood pressure of 88/59, tachypnea with respiratory rate of 28. Yesterday his white cell count was 10,000 today it is 29,000. His chest x-ray shows left lower lobe consolid ation. Patient is being treated as a case of pneumonia. He has been started on vancomycin and Zosyn. I will de-escalate his antibiotic based on his culture results and clinical response. This morning patient seen resting in bed comfortably he is awake alert and oriented. 10/21/2018: Patient seen and examined while he is resting in bed. His blood pressure is still low and patient restarted on Levophed at 1 joe. His blood work shows mild hypokalemia with potassium of 3.1 hypocalcemia with calcium level of 6.9. His acute kidney injury is improving that his creatinine trended down from 1.35-1.07. Reason For Visit: PNEUMONIA,SEPSIS Physical Exam Vital Signs: Temp Pulse Resp BP Pulse Ox 98.2 F 99 24 H 111/51 L 98 10/21/18 10:00 10/21/18 10:00 10/21/18 10:00 10/21/18 10:00 10/21/18 10:00 Intake & Output 10/20/18 10/21/18 10/22/18 06:59 06:59 06:59 Intake Total 2600 3644 25 Output Total 2875 970 275 Balance -275 2674 -250 Weight 82.5 kg 83.4 kg General appearance: PRESENT: no acute distress Head exam: PRESENT: atraumatic Neck exam: ABSENT: carotid bruit, JVD, lymphadenopathy, thyromegaly Respiratory exam: PRESENT: clear to auscultation etienne. ABSENT: rales, rhonchi, wheezes Cardiovascular exam: PRESENT: RRR. ABSENT: diastolic murmur, rubs, systolic murmur Neurological exam: PRESENT: alert, awake, oriented to person, oriented to place, oriented to time, oriented to situation Results Laboratory Results: 10/21/18 08:10/21/18 04:20 10/21/18 10/21/18 10/21/18 04:20 04:20 08:19 WBC Cancelled 20.8 H RBC Cancelled 3.92 L Hgb Cancelled 12.0 L Hct Cancelled 35.9 L MCV Cancelled 92 MCH Cancelled 30.6 MCHC Cancelled 33.4 RDW Cancelled 14.3 H Plt Count Cancelled 146 L Seg Neutrophils % Cancelled Lymphocytes % Cancelled Monocytes % Cancelled Eosinophils % Cancelled Basophils % Cancelled Absolute Neutrophils Cancelled Absolute Lymphocytes Cancelled Absolute Monocytes Cancelled Absolute Eosinophils Cancelled Absolute Basophils Cancelled Sodium 136.3 L Potassium 3.1 L Chloride 107 Carbon Dioxide 21 L Anion Gap 8 BUN 20 Creatinine 1.07 Est GFR ( Amer) > 60 Est GFR (Non-Af Amer) > 60 Glucose 88 Calcium 6.9 L* Albumin 1.9 L 10/19/18 08:13 Catheterized Urine Urine Culture - Final NO GROWTH 2 DAYS 10/19/18 10/19/18 10/19/18 07:28 08:49 08:49 Troponin I Cancelled < 0.012 NT-Pro-B Natriuret Pep 1030 H Impressions: Head CT 10/19/18 09:52 IMPRESSION: MILD CHRONIC CHANGES OF ATROPHY AND MICROVASCULAR ISCHEMIA. NO ACUTE PROCESS. ETHMOID, MAXILLARY AND SPHENOID SINUS DISEASE. EVIDENCE OF ACUTE STROKE: NO Interventional Vascular Procedure 10/20/18 00:00 IMPRESSION: SUCCESSFUL PLACEMENT OF A 5 FR DUAL LUMEN 42 CM PICC IN THE LEFT BASILIC VEIN. PICC Line Insertion 10/20/18 10:43 IMPRESSION: SUCCESSFUL PLACEMENT OF A 5 FR DUAL LUMEN 42 CM PICC IN THE LEFT BASILIC VEIN. Chest X-Ray 10/21/18 00:00 IMPRESSION: Patchy left basilar airspace disease with persistent trace left pleural effusion. This is similar compared to yesterday Assessment and Plan - Diagnosis (1) Acute kidney injury Is this a current diagnosis for this admission?: Yes Plan: Improving. (2) Sepsis Is this a current diagnosis for this admission?: Yes Plan: Sepsis as evidenced by fever, tachycardia, tachypnea, hypotension and source of infection. (3) Acute metabolic encephalopathy Is this a current diagnosis for this admission?: Yes Plan: Improving (4) Acute hypoxemic respiratory failure Is this a current diagnosis for this admission?: Yes Plan: Has be resolving. Continue current regimen (5) Lactic acidosis Is this a current diagnosis for this admission?: Yes Plan: Improving (6) Parkinsons disease Is this a current diagnosis for this admission?: Yes Plan: Stable
[2018-10-21] MEDS: POTASSIUM CHLORIDE 20 MEQ/50 ML RTU IV SCH ×2 (11:55→13:21)
[2018-10-21] MEDS: AZITHROMYCIN 500 MG in DEXTROSE 5%-WATER 250 ML IV SCH (17:42)
[2018-10-21 18:20] LABS: BLOOD UREA NITROGEN 21 mg/dL (7-20); CALCIUM 7.8 mg/dL (8.4-10.2); CARBON DIOXIDE 22 mmol/L (22-30); CHLORIDE 107 mmol/L (98-107); GLUCOSE 147 mg/dL (75-110)
[2018-10-21 18:22] LABS: ANION GAP 5 (5-19); POTASSIUM 4.3 mmol/L (3.6-5.0)
[2018-10-21] MEDS: MONTELUKAST SODIUM 10 MG TABLET PO SCH (21:19)
[2018-10-21] MEDS: NORMAL SALINE 1000 ML 1,000 ML IV PRN (23:02)
[2018-10-22] MEDS: IPRATROPIUM/ALBUTEROL 0.5-2.5 MG/3 ML AMPUL NEB SCH ×3 (00:01→15:58)
--- NOTE | 2018-10-22 00:12 | EKG REPORT ---
SEVERITY:- ABNORMAL ECG - ATRIAL FIBRILLATION VENTRICULAR PREMATURE COMPLEX INTERPOLATED VENTRICULAR PREMATURE COMPLEX BORDERLINE LEFT AXIS DEVIATION : Confirmed by: Ltia Sterling MD 22-Oct-2018 00:10:35
[2018-10-22] MEDS: PIPERACILLIN SODIUM/TAZOBACTAM 3.375 GM in NORMAL SALINE 100 ML IV SCH ×4 (02:31→21:55)
[2018-10-22] MEDS: CARBIDOPA/LEVODOPA 25-100 MG TABLET PO SCH ×3 (05:36→21:57)
[2018-10-22] MEDS: PANTOPRAZOLE SODIUM 40 MG TABLET.DR PO SCH (05:37)
[2018-10-22] MEDS: HEPARIN SOD (PORCINE) 5,000 UNIT/ML 1 ML VIAL SUBCUT SCH ×3 (05:37→21:57)
[2018-10-22] MEDS: VANCOMYCIN HCL 1,500 MG in DEXTROSE 5%-WATER 250 ML IV SCH (05:37)
[2018-10-22 06:14] LABS: HEMATOCRIT 33.6 % (37.9-51.0); HEMOGLOBIN 11.1 g/dL (13.5-17.0); MEAN CORPUSCULAR HEMOGLOBIN 30.4 pg (27.0-33.4); MEAN CORPUSCULAR VOLUME 92 fl (80-97); PLATELET COUNT 153 10^3/uL (150-450); RED BLOOD COUNT 3.66 10^6/uL (4.35-5.55); RED CELL DISTRIBUTION WIDTH 14.2 % (11.5-14.0)
[2018-10-22 06:19] LABS: ANION GAP 5 (5-19); BLOOD UREA NITROGEN 19 mg/dL (7-20); CARBON DIOXIDE 22 mmol/L (22-30); CHLORIDE 109 mmol/L (98-107); GLUCOSE 90 mg/dL (75-110); POTASSIUM 3.7 mmol/L (3.6-5.0)
[2018-10-22 06:25] LABS: VANCOMYCIN,TROUGH 11.3 ug/mL (5.0-20.0)
[2018-10-22 06:50] LABS: ABSOLUTE LYMPHOCYTES# (MANUAL) 0.6 10^3/uL (0.5-4.7); ABSOLUTE MONOCYTES # (MANUAL) 0.4 10^3/uL (0.1-1.4); BASOPHILS % (MANUAL) 0 % (0-2); EOSINOPHILS % (MANUAL) 0 % (0-6); LYMPHOCYTES % (MANUAL) 4 % (13-45); MONOCYTES % (MANUAL) 3 % (3-13); SEGMENTED NEUTROPHILS % (MAN) 93 % (42-78); TOTAL CELLS COUNTED 100
[2018-10-22 06:53] LABS: ANISOCYTOSIS SLIGHT; BURR CELLS SLIGHT; OVALOCYTES 1+; PLATELET COMMENT ADEQUATE; POIKILOCYTOSIS 1+; SCHISTOCYTES SLIGHT; TOXIC GRANULATION SLIGHT
[2018-10-22] MEDS: NORMAL SALINE 10 ML SDV (SCHEDULED) IV SCH ×2 (10:21→21:57)
[2018-10-22] MEDS: CHOLECALCIFEROL (D3) 1,000 UNIT (25 MCG) TABLET PO SCH (10:23)
[2018-10-22] MEDS: CYCLOSPORINE 0.05% OPH EMULSIO 0.4 ML DROPERETTE OU SCH ×2 (10:23→21:57)
[2018-10-22] MEDS: GUAIFENESIN 600 MG TABLET.SA PO SCH ×2 (10:24→21:57)
[2018-10-22] MEDS: MULTIVITAMIN TABLET PO SCH (10:24)
[2018-10-22] MEDS: ASCORBIC ACID 500 MG TABLET PO SCH (10:24)
[2018-10-22] MEDS: FLUTICASONE/VILANTEROL 100-25 MCG/DOSE IH SCH (10:25)
--- NOTE | 2018-10-22 13:14 | PDOC PROGRESS REPORT ---
Subjective Progress Note for:: 10/22/18 Subjective:: This is 82 years old male patient past medical history of Parkinson's disease and bronchial asthma brought from home chief complaint of shortness of breath, confusion and fever. In ER patient found to be febrile with T-max of 101 tachycardic with heart rate of 109, hypotensive with blood pressure of 88/59, tachypnea with respiratory rate of 28. Yesterday his white cell count was 10,000 today it is 29,000. His chest x-ray shows left lower lobe consolid ation. Patient is being treated as a case of pneumonia. He has been started on vancomycin and Zosyn. I will de-escalate his antibiotic based on his culture results and clinical response. This morning patient seen resting in bed comfortably he is awake alert and oriented. 10/21/2018: Patient seen and examined while he is resting in bed. His blood pressure is still low and patient restarted on Levophed at 1 joe. His blood work shows mild hypokalemia with potassium of 3.1 hypocalcemia with calcium level of 6.9. His acute kidney injury is improving that his creatinine trended down from 1.35-1.07. 10/26/2018: Patient seen propped up in bed. He is somewhat sleepy but arousable and responds appropriately. Yesterday patient had an episode of new onset A. fib for which you Dr. Sterling consulted who recommended to pull PICC line by few millimeters. He suspected may be the PICC line triggered the A. fib. Currently patient is in sinus rhythm and heart rate is well controlled. Patient is taken off Levophed since his blood pressure stabilized. Potentially he is downgraded able tomorrow to the regular floor. Reason For Visit: PNEUMONIA,SEPSIS Physical Exam Vital Signs: Temp Pulse Resp BP Pulse Ox 97.9 F 83 25 H 114/75 100 10/22/18 12:00 10/22/18 12:00 10/22/18 12:00 10/22/18 12:00 10/22/18 12:00 Intake & Output 10/21/18 10/22/18 10/23/18 06:59 06:59 06:59 Intake Total 3644 1961 350 Output Total 970 1020 210 Balance 2674 941 140 Weight 83.4 kg 85.4 kg General appearance: PRESENT: no acute distress Head exam: PRESENT: atraumatic Mouth exam: PRESENT: moist Neck exam: ABSENT: carotid bruit, JVD, lymphadenopathy, thyromegaly Respiratory exam: PRESENT: clear to auscultation etienne. ABSENT: rales, rhonchi, wheezes Cardiovascular exam: PRESENT: RRR. ABSENT: diastolic murmur, rubs, systolic murmur GI/Abdominal exam: PRESENT: normal bowel sounds, soft. ABSENT: distended, guarding, mass, organolmegaly, rebound, tenderness Results Laboratory Results: 10/22/18 05:38 10/22/18 05:38 10/21/18 10/22/18 10/22/18 17:45 05:38 05:38 WBC 14.0 H RBC 3.66 L Hgb 11.1 L Hct 33.6 L MCV 92 MCH 30.4 MCHC 33.0 RDW 14.2 H Plt Count 153 Seg Neutrophils % Not Reportable Lymphocytes % Not Reportable Monocytes % Not Reportable Eosinophils % Not Reportable Basophils % Not Reportable Absolute Neutrophils Not Reportable Absolute Lymphocytes Not Reportable Absolute Monocytes Not Reportable Absolute Eosinophils Not Reportable Absolute Basophils Not Reportable Sodium 133.3 L 135.7 L Potassium 4.3 D 3.7 Chloride 107 109 H Carbon Dioxide 22 22 Anion Gap 5 5 BUN 21 H 19 Creatinine 1.00 1.01 Est GFR ( Amer) > 60 > 60 Est GFR (Non-Af Amer) > 60 > 60 Glucose 147 H 90 Calcium 7.8 L 8.0 L Magnesium 1.6 10/19/18 10/19/18 10/19/18 07:28 08:49 08:49 Troponin I Cancelled < 0.012 NT-Pro-B Natriuret Pep 1030 H Impressions: Head CT 10/19/18 09:52 IMPRESSION: MILD CHRONIC CHANGES OF ATROPHY AND MICROVASCULAR ISCHEMIA. NO ACUTE PROCESS. ETHMOID, MAXILLARY AND SPHENOID SINUS DISEASE. EVIDENCE OF ACUTE STROKE: NO Interventional Vascular Procedure 10/20/18 00:00 IMPRESSION: SUCCESSFUL PLACEMENT OF A 5 FR DUAL LUMEN 42 CM PICC IN THE LEFT BASILIC VEIN. PICC Line Insertion 10/20/18 10:43 IMPRESSION: SUCCESSFUL PLACEMENT OF A 5 FR DUAL LUMEN 42 CM PICC IN THE LEFT BASILIC VEIN. Chest X-Ray 10/21/18 00:00 IMPRESSION: Patchy left basilar airspace disease with persistent trace left pleural effusion. This is similar compared to yesterday Assessment and Plan - Diagnosis (1) Left lower lobe pneumonia Is this a current diagnosis for this admission?: Yes Plan: Continue current antibiotics. (2) New onset a-fib Is this a current diagnosis for this admission?: Yes Plan: His PICC line pulled on by few millimeters since it is suspected culprit for triggering his A. fib. Currently patient is in sinus rhythm and heart rate controlled. (3) Acute kidney injury Is this a current diagnosis for this admission?: Yes Plan: Improving. (4) Sepsis Is this a current diagnosis for this admission?: Yes (5) Acute metabolic encephalopathy Is this a current diagnosis for this admission?: Yes (6) Acute hypoxemic respiratory failure Is this a current diagnosis for this admission?: Yes (7) Lactic acidosis Is this a current diagnosis for this admission?: Yes (8) Parkinsons disease Is this a current diagnosis for this admission?: Yes
[2018-10-22] MEDS: NORMAL SALINE 1000 ML 1,000 ML IV PRN (15:21)
[2018-10-22] MEDS: AZITHROMYCIN 500 MG in DEXTROSE 5%-WATER 250 ML IV SCH (17:36)
[2018-10-22] MEDS: MONTELUKAST SODIUM 10 MG TABLET PO SCH (21:57)
[2018-10-23] MEDS: IPRATROPIUM/ALBUTEROL 0.5-2.5 MG/3 ML AMPUL NEB SCH ×3 (00:22→16:45)
[2018-10-23] MEDS: PIPERACILLIN SODIUM/TAZOBACTAM 3.375 GM in NORMAL SALINE 100 ML IV SCH ×4 (02:33→20:04)
[2018-10-23 04:39] LABS: ABSOLUTE EOSINOPHILS # (AUTO) 0.2 10^3/uL (0.0-0.6); ABSOLUTE MONOCYTES (AUTO) 0.8 10^3/uL (0.1-1.4); ABSOLUTE NEUT (AUTO) 8.5 10^3/uL (1.7-8.2); BASOPHILS % (AUTO) 0.3 % (0-2); EOSINOPHILS % (AUTO) 1.8 % (0-6); HEMATOCRIT 33.7 % (37.9-51.0); HEMOGLOBIN 11.4 g/dL (13.5-17.0); LYMPHOCYTES % (AUTO) 9.8 % (13-45); MEAN CORPUSCULAR HGB CONC 33.8 g/dL (32.0-36.0); MEAN CORPUSCULAR VOLUME 92 fl (80-97); MONOCYTES % (AUTO) 7.7 % (3-13); PLATELET COUNT 160 10^3/uL (150-450); RED BLOOD COUNT 3.68 10^6/uL (4.35-5.55); RED CELL DISTRIBUTION WIDTH 14.3 % (11.5-14.0); SEGMENTED NEUTROPHILS % (AUTO) 80.4 % (42-78); TOTAL CELLS COUNTED % (AUTO) 100 %; WHITE BLOOD COUNT 10.6 10^3/uL (4.0-10.5)
[2018-10-23 04:55] LABS: ANION GAP 5 (5-19); BLOOD UREA NITROGEN 18 mg/dL (7-20); CALCIUM 8.3 mg/dL (8.4-10.2); CARBON DIOXIDE 21 mmol/L (22-30); CHLORIDE 109 mmol/L (98-107); GLUCOSE 109 mg/dL (75-110)
[2018-10-23] MEDS: VANCOMYCIN HCL 1,500 MG in DEXTROSE 5%-WATER 250 ML IV SCH (05:37)
[2018-10-23] MEDS: PANTOPRAZOLE SODIUM 40 MG TABLET.DR PO SCH (05:38)
[2018-10-23] MEDS: CARBIDOPA/LEVODOPA 25-100 MG TABLET PO SCH ×3 (05:38→21:23)
[2018-10-23] MEDS: HEPARIN SOD (PORCINE) 5,000 UNIT/ML 1 ML VIAL SUBCUT SCH ×3 (05:38→21:24)
[2018-10-23] MEDS: NORMAL SALINE 1000 ML 1,000 ML IV PRN (09:14)
[2018-10-23] MEDS: CYCLOSPORINE 0.05% OPH EMULSIO 0.4 ML DROPERETTE OU SCH ×2 (09:15→21:23)
[2018-10-23] MEDS: GUAIFENESIN 600 MG TABLET.SA PO SCH ×2 (09:15→21:23)
[2018-10-23] MEDS: FLUTICASONE/VILANTEROL 100-25 MCG/DOSE IH SCH (09:16)
[2018-10-23] MEDS: NORMAL SALINE 10 ML SDV (SCHEDULED) IV SCH ×2 (09:16→21:24)
[2018-10-23] MEDS: MULTIVITAMIN TABLET PO SCH ×2 (09:16→09:26)
[2018-10-23] MEDS: ASCORBIC ACID 500 MG TABLET PO SCH ×2 (09:16→09:27)
[2018-10-23] MEDS: CHOLECALCIFEROL (D3) 1,000 UNIT (25 MCG) TABLET PO SCH ×2 (09:16→09:27)
--- NOTE | 2018-10-23 12:00 | PDOC PROGRESS REPORT ---
Subjective Progress Note for:: 10/23/18 Subjective:: This is 82 years old male patient past medical history of Parkinson's disease and bronchial asthma brought from home chief complaint of shortness of breath, confusion and fever. In ER patient found to be febrile with T-max of 101 tachycardic with heart rate of 109, hypotensive with blood pressure of 88/59, tachypnea with respiratory rate of 28. Yesterday his white cell count was 10,000 today it is 29,000. His chest x-ray shows left lower lobe consolid ation. Patient is being treated as a case of pneumonia. He has been started on vancomycin and Zosyn. I will de-escalate his antibiotic based on his culture results and clinical response. This morning patient seen resting in bed comfortably he is awake alert and oriented. 10/21/2018: Patient seen and examined while he is resting in bed. His blood pressure is still low and patient restarted on Levophed at 1 joe. His blood work shows mild hypokalemia with potassium of 3.1 hypocalcemia with calcium level of 6.9. His acute kidney injury is improving that his creatinine trended down from 1.35-1.07. 10/22/2018: Patient seen propped up in bed. He is somewhat sleepy but arousable and responds appropriately. Yesterday patient had an episode of new onset A. fib for which you Dr. Sterling consulted who recommended to pull PICC line by few millimeters. He suspected may be the PICC line triggered the A. fib. Currently patient is in sinus rhythm and heart rate is well controlled. Patient is taken off Levophed since his blood pressure stabilized. Potentially he is downgraded able tomorrow to the regular floor. 10/23/2018: Patient is seen propped up in bed. He saturates 97% while he has been on BiPAP. Reason For Visit: PNEUMONIA,SEPSIS Physical Exam Vital Signs: Temp Pulse Resp BP Pulse Ox 97.8 F 88 19 127/50 H 96 10/23/18 08:00 10/23/18 10:00 10/23/18 10:00 10/23/18 10:00 10/23/18 10:00 Intake & Output 10/22/18 10/23/18 10/24/18 06:59 06:59 06:59 Intake Total 1961 3887 450 Output Total 1020 915 65 Balance 941 2972 385 Weight 85.4 kg 86.6 kg General appearance: PRESENT: mild distress Eye exam: PRESENT: conjunctiva pink Neck exam: ABSENT: carotid bruit, JVD, lymphadenopathy, thyromegaly Respiratory exam: PRESENT: crackles, decreased breath sounds Cardiovascular exam: PRESENT: RRR. ABSENT: diastolic murmur, rubs, systolic murmur Results Laboratory Results: 10/23/18 04:23 10/23/18 04:23 10/23/18 10/23/18 04:23 04:23 WBC 10.6 H RBC 3.68 L Hgb 11.4 L Hct 33.7 L MCV 92 MCH 31.0 MCHC 33.8 RDW 14.3 H Plt Count 160 Seg Neutrophils % 80.4 H Lymphocytes % 9.8 L Monocytes % 7.7 Eosinophils % 1.8 Basophils % 0.3 Absolute Neutrophils 8.5 H Absolute Lymphocytes 1.0 Absolute Monocytes 0.8 Absolute Eosinophils 0.2 Absolute Basophils 0.0 Sodium 135.0 L Potassium 4.0 Chloride 109 H Carbon Dioxide 21 L Anion Gap 5 BUN 18 Creatinine 0.90 Est GFR ( Amer) > 60 Est GFR (Non-Af Amer) > 60 Glucose 109 Calcium 8.3 L Magnesium 1.7 10/19/18 10/19/18 10/19/18 07:28 08:49 08:49 Troponin I Cancelled < 0.012 NT-Pro-B Natriuret Pep 1030 H Impressions: Head CT 10/19/18 09:52 IMPRESSION: MILD CHRONIC CHANGES OF ATROPHY AND MICROVASCULAR ISCHEMIA. NO ACUTE PROCESS. ETHMOID, MAXILLARY AND SPHENOID SINUS DISEASE. EVIDENCE OF ACUTE STROKE: NO Interventional Vascular Procedure 10/20/18 00:00 IMPRESSION: SUCCESSFUL PLACEMENT OF A 5 FR DUAL LUMEN 42 CM PICC IN THE LEFT BASILIC VEIN. PICC Line Insertion 10/20/18 10:43 IMPRESSION: SUCCESSFUL PLACEMENT OF A 5 FR DUAL LUMEN 42 CM PICC IN THE LEFT BASILIC VEIN. Chest X-Ray 10/21/18 00:00 IMPRESSION: Patchy left basilar airspace disease with persistent trace left pleural effusion. This is similar compared to yesterday Assessment and Plan - Diagnosis (1) Left lower lobe pneumonia Is this a current diagnosis for this admission?: Yes Plan: Continue current antibiotics. (2) New onset a-fib Is this a current diagnosis for this admission?: Yes Plan: Now rate controlled and in sinus rhythm (3) Acute kidney injury Is this a current diagnosis for this admission?: Yes Plan: Improving. (4) Sepsis Is this a current diagnosis for this admission?: Yes Plan: Sepsis as evidenced by fever, tachycardia, tachypnea, hypotension and source of infection. (5) Acute metabolic encephalopathy Is this a current diagnosis for this admission?: Yes Plan: Improving (6) Acute hypoxemic respiratory failure Is this a current diagnosis for this admission?: Yes Plan: Has be resolving. Continue current regimen (7) Lactic acidosis Is this a current diagnosis for this admission?: Yes Plan: Improving (8) Parkinsons disease Is this a current diagnosis for this admission?: Yes Plan: Stable
[2018-10-23] MEDS: AZITHROMYCIN 500 MG in DEXTROSE 5%-WATER 250 ML IV SCH (17:10)
[2018-10-23] MEDS: MONTELUKAST SODIUM 10 MG TABLET PO SCH (21:25)
[2018-10-24] MEDS: IPRATROPIUM/ALBUTEROL 0.5-2.5 MG/3 ML AMPUL NEB SCH ×4 (00:05→23:45)
[2018-10-24] MEDS: NORMAL SALINE 1000 ML 1,000 ML IV PRN ×2 (02:00→20:12)
[2018-10-24] MEDS: PIPERACILLIN SODIUM/TAZOBACTAM 3.375 GM in NORMAL SALINE 100 ML IV SCH ×4 (02:00→20:09)
[2018-10-24 04:58] LABS: ANION GAP 9 (5-19); BLOOD UREA NITROGEN 14 mg/dL (7-20); CALCIUM 8.4 mg/dL (8.4-10.2); CARBON DIOXIDE 19 mmol/L (22-30); CHLORIDE 107 mmol/L (98-107); GLUCOSE 100 mg/dL (75-110); POTASSIUM 3.7 mmol/L (3.6-5.0)
[2018-10-24] MEDS: VANCOMYCIN HCL 1,500 MG in DEXTROSE 5%-WATER 250 ML IV SCH (05:09)
[2018-10-24] MEDS: CARBIDOPA/LEVODOPA 25-100 MG TABLET PO SCH ×3 (05:10→21:39)
[2018-10-24] MEDS: PANTOPRAZOLE SODIUM 40 MG TABLET.DR PO SCH (05:10)
[2018-10-24] MEDS: HEPARIN SOD (PORCINE) 5,000 UNIT/ML 1 ML VIAL SUBCUT SCH ×3 (05:12→21:38)
[2018-10-24] MEDS: CHOLECALCIFEROL (D3) 1,000 UNIT (25 MCG) TABLET PO SCH (09:46)
[2018-10-24] MEDS: MULTIVITAMIN TABLET PO SCH (09:47)
[2018-10-24] MEDS: GUAIFENESIN 600 MG TABLET.SA PO SCH ×2 (09:47→21:39)
[2018-10-24] MEDS: ASCORBIC ACID 500 MG TABLET PO SCH (09:47)
[2018-10-24] MEDS: FLUTICASONE/VILANTEROL 100-25 MCG/DOSE IH SCH (09:49)
[2018-10-24] MEDS: CYCLOSPORINE 0.05% OPH EMULSIO 0.4 ML DROPERETTE OU SCH ×2 (09:49→21:39)
[2018-10-24] MEDS: NORMAL SALINE 10 ML SDV (SCHEDULED) IV SCH ×2 (09:53→21:40)
--- NOTE | 2018-10-24 10:09 | RADIOLOGY REPORT (SQ) ---
EXAM DESCRIPTION: GINNY SWALLOW COMPLETED DATE/TIME: 10/24/2018 9:21 am REASON FOR STUDY: poss. aspiration, Parkinson's COMPARISON: 03/19/2015 TECHNIQUE: Videofluoroscopic swallowing examination was performed in conjunction with speech patholo gy. Videofluoroscopic imaging was obtained and reviewed and these are the findings: RADIATION DOSE: 2 minutes 10 seconds Video fluoroscopic images saved to speech pathology archive. LIMITATIONS: None FINDINGS: The patient was brought into the fluoro room and placed upright on a modified barium swall ow chair. The patient was then given multiple consistencies mixed with barium to swallow under live fluoroscopic video guidance. According to the Speech Pathologist there was penetration of the laryng eal vestibule and silent subglottic aspiration with the initial swallow with thin liquid barium. Othe r swallows of thicker consistencies were well tolerated. IMPRESSION: She Silent subglottic aspiration with the initial swallow of thin liquid barium. Subsequent swallows wer e well tolerated by the patient PLEASE SEE SPEECH PATHOLOGIST REPORT FOR OTHER FINDINGS AND RECOMMEND ATIONS. COMMENT: Quality ID [id number]: Final reports for procedures using fluoroscopy that document radiation exp osure indices, or exposure time and number of fluorographic images (if radiation exposure indices are not available) TECHNICAL DOCUMENTATION: JOB ID: [id number] [employer]- All Rights Reserved Reading location - IP/workstation name: [email or web address]
--- NOTE | 2018-10-24 10:50 | ST Inp Modified Barium Swallow ---
Medical Diagnosis - Medical Diagnoses Medical Diagnosis Description & ICD-10 Code(s): left lower lobe pneumonia - ICD-10 Tx Diagnosis Coding (1) Dysphagia ICD-10 Code(s): R13.10 - DYSPHAGIA, UNSPECIFIED ST Inpatient [facility] [place] - General Date: 10/24/18 Date of Onset: 10/19/18 - admission date - History -: Medical - per EMR: patient admitted 10/19 with shortness of breath and confusion. Prior medical history includes Parkinson's disease and asthma. Chest x-ray showed left lung pneumonia, suspicious for aspiration. Some difficulty swallowing pills documented in nursing notes. Medications: Medications Reviewed Allergies: Refer to medical record - Subjective Current Nutritional Means: PO Current PO Diet: Regular - with thin liquids Current Symptoms: Pneumonia Pain: Patient reports, 0/5 - Objective Assessment: Upright, Left Lateral - Food Trials Food Trials Used: Thin liquids, Honey-thickened liquids, [place] thick liquids, Pureed, Soft solids The Patient: Required Assist - Assessment Labial Function: Within Normal Limits Lingual Function: Within Normal Limits Mandibular Function: Within Normal Limits Velo-Pharyngeal Function: Unremarkable Laryngeal Function: Weak Cough - wet coughing noted prior to PO trials, as well as throughout test. - Pharyngeal Stage Initiation of Pharyngeal Stage: Normal Decreased Laryngeal Elevation: Yes Reduced Velo-Pharyngeal Closure: no Reduced Thyro-Hyiod Approximation: Yes Multiple Swallows With: Cleared w/ Dry Swallow Post Swallow Residuals in Valleculae: Mild Post Swallow Residuals in Pyriforms: None Pahryngeal Stage Comments: Karl, silent aspiration seen during the swallow with thin liquids due to incomplete closure of the laryngeal vestibule. No aspiration seen with other trial textures. - Impression/Summary Tracheal Aspiration: yes, silent, during swallow Productive Cough: No Effective Clearing: no Patient Presents With: Pharyngeal stage dysph., Mild-Moderate Risk of Aspiration: Moderate Risk Due To: Moderate risk of aspiration due to incomplete closure of laryngeal vestibule. Risk increased by silent nature of the aspiration. - Recommendations Solid Diet Recommendations: Mechanical Soft, Chopped Meat Liquid Diet Recommendations: [place]-Thick Strict Aspitarion Precautions: Yes Dysphagia Therapy with ELECTRONICS INSPECTOR: Outpatient - patient may benefit from outpatient or home health speech therapy after discharge, Home Health Recommended Techniques: Fully Upright During Meal, Small Bites and Sips - Time Total Time: 30 Total Timed Minutes: 30
--- NOTE | 2018-10-24 11:51 | PDOC PROGRESS REPORT ---
Subjective Progress Note for:: 10/24/18 Subjective:: This is 82 years old male patient past medical history of Parkinson's disease and bronchial asthma brought from home chief complaint of shortness of breath, confusion and fever. In ER patient found to be febrile with T-max of 101 tachycardic with heart rate of 109, hypotensive with blood pressure of 88/59, tachypnea with respiratory rate of 28. Yesterday his white cell count was 10,000 today it is 29,000. His chest x-ray shows left lower lobe consolid ation. Patient is being treated as a case of pneumonia. He has been started on vancomycin and Zosyn. I will de-escalate his antibiotic based on his culture results and clinical response. This morning patient seen resting in bed comfortably he is awake alert and oriented. 10/21/2018: Patient seen and examined while he is resting in bed. His blood pressure is still low and patient restarted on Levophed at 1 joe. His blood work shows mild hypokalemia with potassium of 3.1 hypocalcemia with calcium level of 6.9. His acute kidney injury is improving that his creatinine trended down from 1.35-1.07. 10/22/2018: Patient seen propped up in bed. He is somewhat sleepy but arousable and responds appropriately. Yesterday patient had an episode of new onset A. fib for which you Dr. Sterling consulted who recommended to pull PICC line by few millimeters. He suspected may be the PICC line triggered the A. fib. Currently patient is in sinus rhythm and heart rate is well controlled. Patient is taken off Levophed since his blood pressure stabilized. Potentially he is downgraded able tomorrow to the regular floor. 10/23/2018: Patient is seen propped up in bed. He saturates 97% while he has been on BiPAP. 10/24/2018: Patient seen resting in bed. He has uneventful night. His modified barium swallow reported as silent subglottic aspiration was initially swallowed thin liquid. Speech therapist recommended mechanical soft, chopped meat and nectar thick liquids. His blood pressure is stable and his blood works are unremarkable patient is stable enough to be downgraded to IMCU. Palliative care is scheduled to see this patient. Reason For Visit: PNEUMONIA,SEPSIS Physical Exam Vital Signs: Temp Pulse Resp BP Pulse Ox 97.8 F 82 27 H 137/75 H 100 10/24/18 10:00 10/24/18 11:19 10/24/18 11:19 10/24/18 11:19 10/24/18 11:19 Intake & Output 10/23/18 10/24/18 10/25/18 06:59 06:59 06:59 Intake Total 3887 2000 350 Output Total 915 700 250 Balance 2972 1300 100 Weight 86.6 kg 89.5 kg General appearance: PRESENT: no acute distress Head exam: PRESENT: atraumatic Neck exam: ABSENT: carotid bruit, JVD, lymphadenopathy, thyromegaly Respiratory exam: PRESENT: crackles, decreased breath sounds Cardiovascular exam: PRESENT: RRR. ABSENT: diastolic murmur, rubs, systolic murmur Neurological exam: PRESENT: alert, awake Results Laboratory Results: 10/23/18 04:23 10/24/18 04:22 10/24/18 04:22 Sodium 135.0 L Potassium 3.7 Chloride 107 Carbon Dioxide 19 L Anion Gap 9 BUN 14 Creatinine 0.95 Est GFR ( Amer) > 60 Est GFR (Non-Af Amer) > 60 Glucose 100 Calcium 8.4 Magnesium 1.6 10/19/18 09:45 Blood Blood Culture - Final NO GROWTH IN 5 DAYS 10/19/18 07:28 Blood Blood Culture - Final NO GROWTH IN 5 DAYS 10/19/18 10/19/18 10/19/18 07:28 08:49 08:49 Troponin I Cancelled < 0.012 NT-Pro-B Natriuret Pep 1030 H Impressions: Head CT 10/19/18 09:52 IMPRESSION: MILD CHRONIC CHANGES OF ATROPHY AND MICROVASCULAR ISCHEMIA. NO ACUTE PROCESS. ETHMOID, MAXILLARY AND SPHENOID SINUS DISEASE. EVIDENCE OF ACUTE STROKE: NO Interventional Vascular Procedure 10/20/18 00:00 IMPRESSION: SUCCESSFUL PLACEMENT OF A 5 FR DUAL LUMEN 42 CM PICC IN THE LEFT BASILIC VEIN. PICC Line Insertion 10/20/18 10:43 IMPRESSION: SUCCESSFUL PLACEMENT OF A 5 FR DUAL LUMEN 42 CM PICC IN THE LEFT BASILIC VEIN. Chest X-Ray 10/21/18 00:00 IMPRESSION: Patchy left basilar airspace disease with persistent trace left pleural effusion. This is similar compared to yesterday Modified Barium Swallow 10/24/18 00:00 IMPRESSION: She Silent subglottic aspiration with the initial swallow of thin liquid barium. Subsequent swallows were well tolerated by the patient PLEASE SEE SPEECH PATHOLOGIST REPORT FOR OTHER FINDINGS AND RECOMMENDATIONS. Assessment and Plan - Diagnosis (1) Left lower lobe pneumonia Is this a current diagnosis for this admission?: Yes Plan: Continue current antibiotics. (2) New onset a-fib Is this a current diagnosis for this admission?: Yes Plan: Now rate controlled and in sinus rhythm (3) Acute kidney injury Is this a current diagnosis for this admission?: Yes Plan: Improving. (4) Sepsis Is this a current diagnosis for this admission?: Yes Plan: Sepsis as evidenced by fever, tachycardia, tachypnea, hypotension and source of infection. (5) Acute metabolic encephalopathy Is this a current diagnosis for this admission?: Yes Plan: Improving (6) Acute hypoxemic respiratory failure Is this a current diagnosis for this admission?: Yes Plan: Has be resolving. Continue current regimen (7) Lactic acidosis Is this a current diagnosis for this admission?: Yes Plan: Improving (8) Parkinsons disease Is this a current diagnosis for this admission?: Yes Plan: Stable
[2018-10-24] MEDS: AZITHROMYCIN 500 MG in DEXTROSE 5%-WATER 250 ML IV SCH (18:35)
[2018-10-24] MEDS: MONTELUKAST SODIUM 10 MG TABLET PO SCH (21:39)
[2018-10-25] MEDS: PIPERACILLIN SODIUM/TAZOBACTAM 3.375 GM in NORMAL SALINE 100 ML IV SCH ×4 (02:14→20:34)
[2018-10-25] MEDS: PANTOPRAZOLE SODIUM 40 MG TABLET.DR PO SCH (06:07)
[2018-10-25] MEDS ORDERED: VANCOMYCIN HCL INJ 1000 MG VIAL ONE (06:07)
[2018-10-25] MEDS: CARBIDOPA/LEVODOPA 25-100 MG TABLET PO SCH ×3 (06:08→22:15)
[2018-10-25] MEDS: VANCOMYCIN HCL 1,500 MG in DEXTROSE 5%-WATER 250 ML IV SCH (06:10)
[2018-10-25] MEDS: HEPARIN SOD (PORCINE) 5,000 UNIT/ML 1 ML VIAL SUBCUT SCH ×3 (06:11→22:14)
[2018-10-25] MEDS: IPRATROPIUM/ALBUTEROL 0.5-2.5 MG/3 ML AMPUL NEB SCH ×3 (07:41→23:58)
[2018-10-25] MEDS ORDERED: LORATADINE 10 MG TABLET PO PRN (07:41)
[2018-10-25 08:26] LABS: ABSOLUTE EOSINOPHILS # (AUTO) 0.3 10^3/uL (0.0-0.6); ABSOLUTE MONOCYTES (AUTO) 0.9 10^3/uL (0.1-1.4); ABSOLUTE NEUT (AUTO) 3.9 10^3/uL (1.7-8.2); BASOPHILS % (AUTO) 0.6 % (0-2); EOSINOPHILS % (AUTO) 4.2 % (0-6); HEMATOCRIT 33.7 % (37.9-51.0); HEMOGLOBIN 11.4 g/dL (13.5-17.0); LYMPHOCYTES % (AUTO) 17.1 % (13-45); MEAN CORPUSCULAR HEMOGLOBIN 30.9 pg (27.0-33.4); MEAN CORPUSCULAR HGB CONC 33.9 g/dL (32.0-36.0); MEAN CORPUSCULAR VOLUME 91 fl (80-97); MONOCYTES % (AUTO) 14.4 % (3-13); PLATELET COUNT 204 10^3/uL (150-450); RED CELL DISTRIBUTION WIDTH 14.5 % (11.5-14.0); SEGMENTED NEUTROPHILS % (AUTO) 63.7 % (42-78); TOTAL CELLS COUNTED % (AUTO) 100 %; WHITE BLOOD COUNT 6.1 10^3/uL (4.0-10.5)
[2018-10-25 08:44] LABS: ALBUMIN 2.3 g/dL (3.5-5.0); ALKALINE PHOSPHATASE 63 U/L (38-126); ANION GAP 6 (5-19); ASPARTATE AMINO TRANSFERASE 21 U/L (17-59); BILIRUBIN,DIRECT 0.4 mg/dL (0.0-0.4); BILIRUBIN,TOTAL 0.6 mg/dL (0.2-1.3); BLOOD UREA NITROGEN 12 mg/dL (7-20); CALCIUM 8.3 mg/dL (8.4-10.2); CARBON DIOXIDE 23 mmol/L (22-30); CHLORIDE 106 mmol/L (98-107); GLUCOSE 127 mg/dL (75-110); POTASSIUM 3.6 mmol/L (3.6-5.0); TOTAL PROTEIN 4.7 g/dL (6.3-8.2)
[2018-10-25] MEDS ORDERED: (PENDING PHARMACY ID) (Azelastine Hcl [Azelastine Hcl] 1 SPRAY) NASL SCH (10:00)
[2018-10-25] MEDS: CHOLECALCIFEROL (D3) 1,000 UNIT (25 MCG) TABLET PO SCH (10:04)
[2018-10-25] MEDS: MULTIVITAMIN TABLET PO SCH (10:05)
[2018-10-25] MEDS: GUAIFENESIN 600 MG TABLET.SA PO SCH ×2 (10:05→22:15)
[2018-10-25] MEDS: ASCORBIC ACID 500 MG TABLET PO SCH (10:05)
[2018-10-25] MEDS: CYCLOSPORINE 0.05% OPH EMULSIO 0.4 ML DROPERETTE OU SCH ×2 (10:07→22:17)
[2018-10-25] MEDS: FLUTICASONE/VILANTEROL 100-25 MCG/DOSE IH SCH (10:13)
[2018-10-25] MEDS: NORMAL SALINE 10 ML SDV (SCHEDULED) IV SCH ×2 (10:14→22:16)
--- NOTE | 2018-10-25 10:27 | PDOC PROGRESS REPORT ---
Subjective Progress Note for:: 10/25/18 Subjective:: 82 years old male patient past medical history of Parkinson's disease and bronchial asthma brought from home chief complaint of shortness of breath, confusion and fever. In ER patient found to be febrile with T-max of 101 tachycardic with heart rate of 109, hypotensive with blood pressure of 88/59, tachypnea with respiratory rate of 28. Yesterday his white cell count was 10,000 today it is 29,000. His chest x-ray shows left lower lobe consolidation. Patient is being treated as a case of pneumonia. He has been started on vancomycin and Zosyn. I will de-escalate his antibiotic based on his culture results and clinical response. This morning patient seen resting in bed comfortably he is awake alert and oriented. 10/21/2018: Patient seen and examined while he is resting in bed. His blood pressure is still low and patient restarted on Levophed at 1 joe. His blood work shows mild hypokalemia with potassium of 3.1 hypocalcemia with calcium level of 6.9. His acute kidney injury is improving that his creatinine trended down from 1.35-1.07. 10/22/2018: Patient seen propped up in bed. He is somewhat sleepy but arousable and responds appropriately. Yesterday patient had an episode of new onset A. fib for which you Dr. Sterling consulted who recommended to pull PICC line by few millimeters. He suspected may be the PICC line triggered the A. fib. Currently patient is in sinus rhythm and heart rate is well controlled. Patient is taken off Levophed since his blood pressure stabilized. Potentially he is downgraded able tomorrow to the regular floor. 10/23/2018: Patient is seen propped up in bed. He saturates 97% while he has been on BiPAP. 10/24/2018: Patient seen resting in bed. He has uneventful night. His modified barium swallow reported as silent subglottic aspiration was initially swallowed thin liquid. Speech therapist recommended mechanical soft, chopped meat and nectar thick liquids. His blood pressure is stable and his blood works are unremarkable patient is stable enough to be downgraded to IMCU. Palliative care is scheduled to see this patient. 10/25/2018-patient is on BiPAP he does not want to wear the BiPAP pulse ox is 96% on BiPAP. Respiratory of 25. Blood pressure is 137/67. Temperature is 98.4. Patient is on mechanical soft chopped meat diet and nectar thickened liquids. Acute events in the last 24 hours. Afebrile. Reason For Visit: PNEUMONIA,SEPSIS Physical Exam Vital Signs: Temp Pulse Resp BP Pulse Ox 97.8 F 67 22 H 144/92 H 96 10/25/18 07:17 10/25/18 07:41 10/25/18 07:41 10/25/18 07:17 10/25/18 07:41 Intake & Output 10/24/18 10/25/18 10/26/18 06:59 06:59 06:59 Intake Total 2000 2009 250 Output Total 700 1125 Balance 1300 885 250 Weight 89.5 kg 93.7 kg General appearance: PRESENT: no acute distress Head exam: PRESENT: atraumatic Eye exam: PRESENT: PERRLA Ear exam: PRESENT: normal external ear exam Mouth exam: PRESENT: dry mucosa Teeth exam: PRESENT: poor dentation Neck exam: ABSENT: carotid bruit, JVD, lymphadenopathy, thyromegaly Respiratory exam: PRESENT: decreased breath sounds Cardiovascular exam: PRESENT: RRR. ABSENT: diastolic murmur, rubs, systolic murmur Pulses: PRESENT: normal dorsalis pedis pul GI/Abdominal exam: PRESENT: normal bowel sounds, soft. ABSENT: distended, guarding, mass, organolmegaly, rebound, tenderness Rectal exam: PRESENT: deferred Extremities exam: PRESENT: full ROM. ABSENT: calf tenderness, clubbing, pedal edema Neurological exam: PRESENT: alert, awake, oriented to person, oriented to place, oriented to time, oriented to situation, CN II-XII grossly intact. ABSENT: motor sensory deficit Psychiatric exam: PRESENT: appropriate affect, normal mood. ABSENT: homicidal ideation, suicidal ideation Results Laboratory Results: 10/25/18 08:05 10/25/18 08:05 10/25/18 10/25/18 08:05 08:05 WBC 6.1 RBC 3.70 L Hgb 11.4 L Hct 33.7 L MCV 91 MCH 30.9 MCHC 33.9 RDW 14.5 H Plt Count 204 Seg Neutrophils % 63.7 Lymphocytes % 17.1 Monocytes % 14.4 H Eosinophils % 4.2 Basophils % 0.6 Absolute Neutrophils 3.9 Absolute Lymphocytes 1.0 Absolute Monocytes 0.9 Absolute Eosinophils 0.3 Absolute Basophils 0.0 Sodium 134.5 L Potassium 3.6 Chloride 106 Carbon Dioxide 23 Anion Gap 6 BUN 12 Creatinine 0.99 Est GFR ( Amer) > 60 Est GFR (Non-Af Amer) > 60 Glucose 127 H Calcium 8.3 L Magnesium 1.7 Total Bilirubin 0.6 AST 21 Alkaline Phosphatase 63 Total Protein 4.7 L Albumin 2.3 L 10/19/18 09:45 Blood Blood Culture - Final NO GROWTH IN 5 DAYS 10/19/18 07:28 Blood Blood Culture - Final NO GROWTH IN 5 DAYS 10/19/18 10/19/18 10/19/18 07:28 08:49 08:49 Troponin I Cancelled < 0.012 NT-Pro-B Natriuret Pep 1030 H Impressions: Head CT 10/19/18 09:52 IMPRESSION: MILD CHRONIC CHANGES OF ATROPHY AND MICROVASCULAR ISCHEMIA. NO ACUTE PROCESS. ETHMOID, MAXILLARY AND SPHENOID SINUS DISEASE. EVIDENCE OF ACUTE STROKE: NO Interventional Vascular Procedure 10/20/18 00:00 IMPRESSION: SUCCESSFUL PLACEMENT OF A 5 FR DUAL LUMEN 42 CM PICC IN THE LEFT BASILIC VEIN. PICC Line Insertion 10/20/18 10:43 IMPRESSION: SUCCESSFUL PLACEMENT OF A 5 FR DUAL LUMEN 42 CM PICC IN THE LEFT BASILIC VEIN. Chest X-Ray 10/21/18 00:00 IMPRESSION: Patchy left basilar airspace disease with persistent trace left pleural effusion. This is similar compared to yesterday Modified Barium Swallow 10/24/18 00:00 IMPRESSION: She Silent subglottic aspiration with the initial swallow of thin liquid barium. Subsequent swallows were well tolerated by the patient PLEASE SEE SPEECH PATHOLOGIST REPORT FOR OTHER FINDINGS AND RECOMMENDATIONS. Assessment and Plan - Diagnosis (1) Left lower lobe pneumonia Qualifiers: Aspiration pneumonia type: unspecified Is this a current diagnosis for this admission?: Yes Plan: Community-acquired versus aspiration pneumonia. CXR reveals left lower lobe pneumonia. WBCs are normal. However, patient with elevated temperature, tachycardia, tachypnea, hypoxia, and hypotension with elevated lactic acid. Blood cultures are pending. Sputum cultures pending. Patient is admitted to the ICU on continuous cardiac telemetry. Provide supplemental oxygen via nasal cannula or BiPAP as needed to maintain saturations greater than 90%. Is empirically placed on IV azithromycin and Zosyn for coverage of community- acquired and possible aspiration (Pseudomonas) event. He is started on scheduled and as needed nebulizer treatments. Start Mucinex twice daily. Robitussin as needed for cough. Encourage pulmonary toilet when able to participate. 10/25/2018-patient is on BiPAP pulse ox is 96%. Plan is to repeat the chest x-ray today. blood Cultures and sputum cultures are negative so far. pt is presently on IV Zosyn and vancomycin. (2) New onset a-fib Is this a current diagnosis for this admission?: Yes Plan: Now rate controlled and in sinus rhythm 10/25/2018-patient's pulse rate is 77 today rate controlled. Patient is presently not on rate controlled medications. Not on anticoagulation. To start him on aspirin 325 mg p.o. daily from today. (3) Acute kidney injury Is this a current diagnosis for this admission?: Yes Plan: Improving. 10/25/2018-patient serum creatinine on 10/20/2018 is 1.35 it was improved to 0.99 today. KERON is resolving. Patient's baseline creatinine is around 1. (4) Sepsis Is this a current diagnosis for this admission?: Yes Plan: Sepsis as evidenced by fever, tachycardia, tachypnea, hypotension and source of infection. 10/25/2018-patient admitted with sepsis fever is resolved T-max is 98.4 tachycardia is resolved heart rate is 77 KERON improved. Hypotension is resolved. Blood cultures and sputum cultures are negative so far. Initial admission lactic acid is elevated which was resolving now. (5) Acute respiratory failure with hypoxia Is this a current diagnosis for this admission?: Yes Plan: Secondary to #1. Management as above. 10/25/2018-patient admitted with acute hypoxic respiratory failure with hypoxia patient is on BiPAP pulse ox 86% this morning. Patient receiving as needed nebulizations. Plan is to continue the present management. - Time Time Spent with patient: 25-34 minutes Medications reviewed and adjusted accordingly: Yes Anticipated discharge: SNF
[2018-10-25] MEDS: ASPIRIN 325 MG TABLET PO SCH (11:10)
--- NOTE | 2018-10-25 14:18 | RADIOLOGY REPORT (SQ) ---
EXAM DESCRIPTION: CHEST SINGLE VIEW COMPLETED DATE/TIME: 10/25/2018 1:57 pm REASON FOR STUDY: pneumonia COMPARISON: 10/21/2018 EXAM PARAMETERS: NUMBER OF VIEWS: One view. TECHNIQUE: Single frontal radiographic view of the chest acquired. RADIATION DOSE: NA LIMITATIONS: None. FINDINGS: LUNGS AND PLEURA: There is considerable opacification in the left base. There is left ple ural effusion with minimal right pleural effusion. MEDIASTINUM AND HILAR STRUCTURES: No masses. Contour normal. HEART AND VASCULAR STRUCTURES: Cardiomegaly. No katja pulmonary edema. BONES: No acute findings. HARDWARE: None in the chest. OTHER: No other significant finding. IMPRESSION: Airspace disease in the left base, atelectasis versus pneumonia. Left pleural effusion and minimal right pleural effusion. Cardiomegaly without katja pulmonary edema. TECHNICAL DOCUMENTATION: JOB ID: [id number] [employer]- All Rights Reserved Reading location - IP/workstation name: [email or web address]
[2018-10-25] MEDS: AZITHROMYCIN 500 MG in DEXTROSE 5%-WATER 250 ML IV SCH (17:32)
[2018-10-25] MEDS: MONTELUKAST SODIUM 10 MG TABLET PO SCH (22:15)
[2018-10-26] MEDS: PIPERACILLIN SODIUM/TAZOBACTAM 3.375 GM in NORMAL SALINE 100 ML IV SCH ×2 (02:24→09:53)
[2018-10-26] MEDS: VANCOMYCIN HCL 1,500 MG in DEXTROSE 5%-WATER 250 ML IV SCH (05:38)
[2018-10-26] MEDS: HEPARIN SOD (PORCINE) 5,000 UNIT/ML 1 ML VIAL SUBCUT SCH ×3 (05:39→21:53)
[2018-10-26] MEDS: PANTOPRAZOLE SODIUM 40 MG TABLET.DR PO SCH (05:40)
[2018-10-26] MEDS: CARBIDOPA/LEVODOPA 25-100 MG TABLET PO SCH ×3 (05:40→21:53)
[2018-10-26] MEDS: IPRATROPIUM/ALBUTEROL 0.5-2.5 MG/3 ML AMPUL NEB SCH ×2 (07:57→15:47)
[2018-10-26] MEDS: GUAIFENESIN 600 MG TABLET.SA PO SCH ×2 (09:54→21:52)
[2018-10-26] MEDS: CHOLECALCIFEROL (D3) 1,000 UNIT (25 MCG) TABLET PO SCH (09:54)
[2018-10-26] MEDS: ASCORBIC ACID 500 MG TABLET PO SCH (09:54)
[2018-10-26] MEDS: MULTIVITAMIN TABLET PO SCH (09:54)
[2018-10-26] MEDS: ASPIRIN 325 MG TABLET PO SCH (09:54)
[2018-10-26] MEDS: NORMAL SALINE 10 ML SDV (SCHEDULED) IV SCH ×2 (09:56→22:01)
[2018-10-26] MEDS: FLUTICASONE/VILANTEROL 100-25 MCG/DOSE IH SCH (09:56)
[2018-10-26] MEDS: CYCLOSPORINE 0.05% OPH EMULSIO 0.4 ML DROPERETTE OU SCH ×2 (09:57→21:53)
[2018-10-26] MEDS ORDERED: HYDRALAZINE HCL INJ/PF 20 MG/1 ML SDV IV PRN (10:02)
--- NOTE | 2018-10-26 10:14 | PDOC PROGRESS REPORT ---
Subjective Progress Note for:: 10/26/18 Subjective:: 82 years old male patient past medical history of Parkinson's disease and bronchial asthma brought from home chief complaint of shortness of breath, confusion and fever. In ER patient found to be febrile with T-max of 101 tachycardic with heart rate of 109, hypotensive with blood pressure of 88/59, tachypnea with respiratory rate of 28. Yesterday his white cell count was 10,000 today it is 29,000. His chest x-ray shows left lower lobe consolidation. Patient is being treated as a case of pneumonia. He has been started on vancomycin and Zosyn. I will de-escalate his antibiotic based on his culture results and clinical response. This morning patient seen resting in bed comfortably he is awake alert and oriented. 10/21/2018: Patient seen and examined while he is resting in bed. His blood pressure is still low and patient restarted on Levophed at 1 joe. His blood work shows mild hypokalemia with potassium of 3.1 hypocalcemia with calcium level of 6.9. His acute kidney injury is improving that his creatinine trended down from 1.35-1.07. 10/22/2018: Patient seen propped up in bed. He is somewhat sleepy but arousable and responds appropriately. Yesterday patient had an episode of new onset A. fib for which you Dr. Sterling consulted who recommended to pull PICC line by few millimeters. He suspected may be the PICC line triggered the A. fib. Currently patient is in sinus rhythm and heart rate is well controlled. Patient is taken off Levophed since his blood pressure stabilized. Potentially he is downgraded able tomorrow to the regular floor. 10/23/2018: Patient is seen propped up in bed. He saturates 97% while he has been on BiPAP. 10/24/2018: Patient seen resting in bed. He has uneventful night. His modified barium swallow reported as silent subglottic aspiration was initially swallowed thin liquid. Speech therapist recommended mechanical soft, chopped meat and nectar thick liquids. His blood pressure is stable and his blood works are unremarkable patient is stable enough to be downgraded to IMCU. Palliative care is scheduled to see this patient. 10/25/2018-patient is on BiPAP he does not want to wear the BiPAP pulse ox is 96% on BiPAP. Respiratory of 25. Blood pressure is 137/67. Temperature is 98.4. Patient is on mechanical soft chopped meat diet and nectar thickened liquids. Acute events in the last 24 hours. Afebrile. 10/[id number]-old male with past medical history of Parkinson's disease, bronchial asthma admitted with increasing shortness of breath associated with confusion and fever. Cultures are negative so far. Sputum culture is positive for normal respiratory raphael. Afebrile. WBC count is within normal limits. Presently on vancomycin and Zosyn. He is a high risk for silent aspiration presently on nectar thickened liquids and chopped meat. We could events in the last 24 hours and afebrile. Reason For Visit: PNEUMONIA,SEPSIS Physical Exam Vital Signs: Temp Pulse Resp BP Pulse Ox 97.5 F 81 18 171/92 H 94 10/26/18 07:53 10/26/18 07:58 10/26/18 07:58 10/26/18 07:53 10/26/18 07:58 Intake & Output 10/25/18 10/26/18 10/27/18 06:59 06:59 06:59 Intake Total 2009 1228 250 Output Total 1125 1075 Balance 885 153 250 Weight 93.7 kg 94.4 kg General appearance: PRESENT: no acute distress, cooperative Head exam: PRESENT: atraumatic Eye exam: PRESENT: PERRLA Mouth exam: PRESENT: moist, tongue midline Teeth exam: PRESENT: poor dentation Neck exam: ABSENT: carotid bruit, JVD, lymphadenopathy, thyromegaly Respiratory exam: PRESENT: decreased breath sounds Cardiovascular exam: PRESENT: RRR. ABSENT: diastolic murmur, rubs, systolic murmur GI/Abdominal exam: PRESENT: normal bowel sounds, soft. ABSENT: distended, guarding, mass, organolmegaly, rebound, tenderness Rectal exam: PRESENT: deferred Extremities exam: PRESENT: full ROM. ABSENT: calf tenderness, clubbing, pedal edema Neurological exam: PRESENT: alert, awake, oriented to person, oriented to place, oriented to time, oriented to situation, CN II-XII grossly intact. ABSENT: motor sensory deficit Psychiatric exam: PRESENT: appropriate affect, normal mood. ABSENT: homicidal ideation, suicidal ideation Results Laboratory Results: 10/25/18 08:05 10/25/18 08:05 10/23/18 21:28 Sputum Gram Stain - Final 10/23/18 21:28 Sputum Sputum Culture - Final C.albicans/C.dubliniensis Normal Raphael Absent 10/19/18 10/19/18 10/19/18 07:28 08:49 08:49 Troponin I Cancelled < 0.012 NT-Pro-B Natriuret Pep 1030 H Impressions: Head CT 10/19/18 09:52 IMPRESSION: MILD CHRONIC CHANGES OF ATROPHY AND MICROVASCULAR ISCHEMIA. NO ACUTE PROCESS. ETHMOID, MAXILLARY AND SPHENOID SINUS DISEASE. EVIDENCE OF ACUTE STROKE: NO Interventional Vascular Procedure 10/20/18 00:00 IMPRESSION: SUCCESSFUL PLACEMENT OF A 5 FR DUAL LUMEN 42 CM PICC IN THE LEFT BASILIC VEIN. PICC Line Insertion 10/20/18 10:43 IMPRESSION: SUCCESSFUL PLACEMENT OF A 5 FR DUAL LUMEN 42 CM PICC IN THE LEFT BASILIC VEIN. Modified Barium Swallow 10/24/18 00:00 IMPRESSION: She Silent subglottic aspiration with the initial swallow of thin liquid barium. Subsequent swallows were well tolerated by the patient PLEASE SEE SPEECH PATHOLOGIST REPORT FOR OTHER FINDINGS AND RECOMMENDATIONS. Chest X-Ray 10/25/18 00:00 IMPRESSION: Airspace disease in the left base, atelectasis versus pneumonia. Left pleural effusion and minimal right pleural effusion. Cardiomegaly without katja pulmonary edema. Assessment and Plan - Diagnosis (1) Left lower lobe pneumonia Qualifiers: Aspiration pneumonia type: unspecified Is this a current diagnosis for this admission?: Yes Plan: Community-acquired versus aspiration pneumonia. CXR reveals left lower lobe pneumonia. WBCs are normal. However, patient with elevated temperature, tachycardia, tachypnea, hypoxia, and hypotension with elevated lactic acid. Blood cultures are pending. Sputum cultures pending. Patient is admitted to the ICU on continuous cardiac telemetry. Provide supplemental oxygen via nasal cannula or BiPAP as needed to maintain saturations greater than 90%. Is empirically placed on IV azithromycin and Zosyn for coverage of community- acquired and possible aspiration (Pseudomonas) event. He is started on scheduled and as needed nebulizer treatments. Start Mucinex twice daily. Robitussin as needed for cough. Encourage pulmonary toilet when able to participate. 10/25/2018-patient is on BiPAP pulse ox is 96%. Plan is to repeat the chest x-ray today. blood Cultures and sputum cultures are negative so far. pt is presently on IV Zosyn and vancomycin. 10/26/2018-patient pulse ox today is 97% on 4 L. Repeat chest x-ray done yesterday shows airspace disease in the left base and left pleural effusion and minimal right pleural effusion. Plan is to continue the antibiotic therapy and give Lasix 40 mg IV 1 dose. (2) New onset a-fib Is this a current diagnosis for this admission?: Yes Plan: Now rate controlled and in sinus rhythm 10/25/2018-patient's pulse rate is 77 today rate controlled. Patient is presently not on rate controlled medications. Not on anticoagulation. To start him on aspirin 325 mg p.o. daily from today. 10/26/2018-patient's heart rate today is 77 stable. Now in sinus rhythm. (3) Acute kidney injury Is this a current diagnosis for this admission?: Yes Plan: Improving. 10/25/2018-patient serum creatinine on 10/20/2018 is 1.35 it was improved to 0.99 today. KERON is resolving. Patient's baseline creatinine is around 1. 10/26/2018-patient came in with serum creatinine 1.35 and was improved to 1 yesterday. KERON due to prerenal causes resolved. (4) Sepsis Is this a current diagnosis for this admission?: Yes Plan: Sepsis as evidenced by fever, tachycardia, tachypnea, hypotension and source of infection. 10/25/2018-patient admitted with sepsis fever is resolved T-max is 98.4 tachycardia is resolved heart rate is 77 KERON improved. Hypotension is resolved. Blood cultures and sputum cultures are negative so far. Initial admission lactic acid is elevated which was resolving now. 10/26/2018-patient admitted with sepsis which was resolved. Blood pressures are stable. KERON resolved. Cultures are negative. (5) Acute respiratory failure with hypoxia Is this a current diagnosis for this admission?: Yes Plan: Secondary to #1. Management as above. 10/25/2018-patient admitted with acute hypoxic respiratory failure with hypoxia patient is on BiPAP pulse ox 86% this morning. Patient receiving as needed neb ulizations. Plan is to continue the present management. 10/26/2018-patient admitted with acute hypoxic respiratory failure initially on BiPAP. Presently he is on PRN BiPAP on 4 L oxygen this morning pulse ox 97%. Family is expressing desire to take him home once is stable. (6) Aspiration pneumonia Is this a current diagnosis for this admission?: No Plan: 10/26/2018-as per the speech pathology patient is high risk for silent aspiration pneumonia. Presently on nectar thickened liquids and mechanical soft with chopped meats. Plan is to continue the present management. Chest x-ray did not suggestive any exacerbation pneumonia. - Time Time Spent with patient: 15-24 minutes Medications reviewed and adjusted accordingly: Yes Anticipated discharge: Home with Homehealth
[2018-10-26] MEDS ORDERED: AMLODIPINE BESYLATE 10 MG TABLET PO ONE (16:30)
[2018-10-26] MEDS: MONTELUKAST SODIUM 10 MG TABLET PO SCH (21:52)
[2018-10-27] MEDS: IPRATROPIUM/ALBUTEROL 0.5-2.5 MG/3 ML AMPUL NEB SCH ×3 (00:44→16:23)
[2018-10-27] MEDS: VANCOMYCIN HCL 1,500 MG in DEXTROSE 5%-WATER 250 ML IV SCH (06:03)
[2018-10-27] MEDS: HEPARIN SOD (PORCINE) 5,000 UNIT/ML 1 ML VIAL SUBCUT SCH ×3 (06:03→21:17)
[2018-10-27] MEDS: CARBIDOPA/LEVODOPA 25-100 MG TABLET PO SCH ×3 (06:04→21:35)
[2018-10-27] MEDS: PANTOPRAZOLE SODIUM 40 MG TABLET.DR PO SCH (06:04)
[2018-10-27 07:16] LABS: ABSOLUTE EOSINOPHILS # (AUTO) 0.1 10^3/uL (0.0-0.6); ABSOLUTE LYMPHOCYTES (AUTO) 0.8 10^3/uL (0.5-4.7); ABSOLUTE MONOCYTES (AUTO) 0.7 10^3/uL (0.1-1.4); ABSOLUTE NEUT (AUTO) 5.8 10^3/uL (1.7-8.2); BASOPHILS % (AUTO) 0.6 % (0-2); EOSINOPHILS % (AUTO) 1.6 % (0-6); HEMATOCRIT 36.6 % (37.9-51.0); HEMOGLOBIN 12.2 g/dL (13.5-17.0); LYMPHOCYTES % (AUTO) 11.2 % (13-45); MEAN CORPUSCULAR HEMOGLOBIN 30.4 pg (27.0-33.4); MEAN CORPUSCULAR HGB CONC 33.3 g/dL (32.0-36.0); MEAN CORPUSCULAR VOLUME 91 fl (80-97); MONOCYTES % (AUTO) 9.8 % (3-13); PLATELET COUNT 287 10^3/uL (150-450); RED BLOOD COUNT 4.01 10^6/uL (4.35-5.55); RED CELL DISTRIBUTION WIDTH 14.2 % (11.5-14.0); SEGMENTED NEUTROPHILS % (AUTO) 76.8 % (42-78); TOTAL CELLS COUNTED % (AUTO) 100 %; WHITE BLOOD COUNT 7.5 10^3/uL (4.0-10.5)
[2018-10-27 07:21] LABS: ALBUMIN 2.6 g/dL (3.5-5.0); ALKALINE PHOSPHATASE 70 U/L (38-126); ANION GAP 8 (5-19); ASPARTATE AMINO TRANSFERASE 26 U/L (17-59); BILIRUBIN,DIRECT 0.4 mg/dL (0.0-0.4); BILIRUBIN,TOTAL 0.5 mg/dL (0.2-1.3); BLOOD UREA NITROGEN 11 mg/dL (7-20); CALCIUM 8.7 mg/dL (8.4-10.2); CARBON DIOXIDE 23 mmol/L (22-30); CHLORIDE 105 mmol/L (98-107); GLUCOSE 90 mg/dL (75-110); TOTAL PROTEIN 5.1 g/dL (6.3-8.2)
[2018-10-27 07:24] LABS: VANCOMYCIN,TROUGH 12.1 ug/mL (5.0-20.0)
[2018-10-27] MEDS ORDERED: FUROSEMIDE INJ/PF 40 MG/4 ML SDV ONE (09:28)
[2018-10-27] MEDS ORDERED: PIPERACILLIN/TAZOBACTAM 3.375 GM VIAL IV SCH (09:30)
[2018-10-27] MEDS ORDERED: FUROSEMIDE INJ/PF 40 MG/4 ML SDV IV ONE (10:00)
--- NOTE | 2018-10-27 10:27 | RADIOLOGY REPORT (SQ) ---
EXAM DESCRIPTION: CT CHEST WITHOUT COMPLETED DATE/TIME: 10/27/2018 10:03 am REASON FOR STUDY: asp pneumonia COMPARISON: 10/25/2017 TECHNIQUE: CT scan performed of the chest without intravenous contrast. Images reviewed with lung, soft tissue and bone windows. Reconstructed coronal and sagittal MPR images reviewed. All images st ored on PACS. All CT scanners at this facility use dose modulation, iterative reconstruction, and/or weight based d osing when appropriate to reduce radiation dose to as low as reasonably achievable (ALARA). [facility]: Dose Right [facility]: CareDose [facility]: Dose Right [facility]: Teradose 4D [facility]: [employer] RADIATION DOSE: CT Rad equipment meets quality standard of care and radiation dose reduction techniq ues were employed. CTDIvol: 15.2 mGy. DLP: 525 mGy-cm. mGy. LIMITATIONS: No technical limitations. FINDINGS: LUNGS AND PLEURA: Moderate bilateral pleural effusions. There is airspace disease in the left upper lobe posteriorly and in the left lower lobe there is limited airspace disease in the right lower lobe with air bronchograms. HILAR AND MEDIASTINAL STRUCTURES: No identified masses or abnormal nodes. No obvious aneurysm. HEART AND VASCULAR STRUCTURES: No aneurysm or pericardial effusion. Cardiomegaly is present. UPPER ABDOMEN: No significant findings. Limited exam. THYROID AND OTHER SOFT TISSUES: No masses. No adenopathy. BONES: No significant finding. HARDWARE: None in the chest. OTHER: No other significant findings. IMPRESSION: Cardiomegaly. Bilateral pleural effusions. Airspace disease in the right lower lobe, p neumonia versus atelectasis. Airspace disease in the left upper lobe and left lower lobe, pneumonia versus atelectasis. TECHNICAL DOCUMENTATION: JOB ID: [id number] Quality ID # [id number]: Final reports with documentation of one or more dose reduction techniques (e.g., Au tomated exposure control, adjustment of the mA and/or kV according to patient size, use of iterative reconstruction technique) 2010 [employer]- All Rights Reserved Reading location - IP/workstation name: [email or web address]
--- NOTE | 2018-10-27 10:27 | PDOC PROGRESS REPORT ---
Subjective Progress Note for:: 10/27/18 Subjective:: 82 years old male patient past medical history of Parkinson's disease and bronchial asthma brought from home chief complaint of shortness of breath, confusion and fever. In ER patient found to be febrile with T-max of 101 tachycardic with heart rate of 109, hypotensive with blood pressure of 88/59, tachypnea with respiratory rate of 28. Yesterday his white cell count was 10,000 today it is 29,000. His chest x-ray shows left lower lobe consolidation. Patient is being treated as a case of pneumonia. He has been started on vancomycin and Zosyn. I will de-escalate his antibiotic based on his culture results and clinical response. This morning patient seen resting in bed comfortably he is awake alert and oriented. 10/21/2018: Patient seen and examined while he is resting in bed. His blood pressure is still low and patient restarted on Levophed at 1 joe. His blood work shows mild hypokalemia with potassium of 3.1 hypocalcemia with calcium level of 6.9. His acute kidney injury is improving that his creatinine trended down from 1.35-1.07. 10/22/2018: Patient seen propped up in bed. He is somewhat sleepy but arousable and responds appropriately. Yesterday patient had an episode of new onset A. fib for which you Dr. Sterling consulted who recommended to pull PICC line by few millimeters. He suspected may be the PICC line triggered the A. fib. Currently patient is in sinus rhythm and heart rate is well controlled. Patient is taken off Levophed since his blood pressure stabilized. Potentially he is downgraded able tomorrow to the regular floor. 10/23/2018: Patient is seen propped up in bed. He saturates 97% while he has been on BiPAP. 10/24/2018: Patient seen resting in bed. He has uneventful night. His modified barium swallow reported as silent subglottic aspiration was initially swallowed thin liquid. Speech therapist recommended mechanical soft, chopped meat and nectar thick liquids. His blood pressure is stable and his blood works are unremarkable patient is stable enough to be downgraded to IMCU. Palliative care is scheduled to see this patient. 10/25/2018-patient is on BiPAP he does not want to wear the BiPAP pulse ox is 96% on BiPAP. Respiratory of 25. Blood pressure is 137/67. Temperature is 98.4. Patient is on mechanical soft chopped meat diet and nectar thickened liquids. Acute events in the last 24 hours. Afebrile. 10/26/[id number]-ctuy-old male with past medical history of Parkinson's disease, bronchial asthma admitted with increasing shortness of breath associated with confusion and fever. Cultures are negative so far. Sputum culture is positive for normal respiratory raphael. Afebrile. WBC count is within normal limits. Presently on vancomycin and Zosyn. He is a high risk for silent aspiration presently on nectar thickened liquids and chopped meat. We could events in the last 24 hours and afebrile. 10/27/[id number]-old male with history of Parkinson's disease, bronchial asthma admitted for increasing shortness of breath associated with fever and confusion. The cultures are negative.. This morning patient is requiring BiPAP. He is in respiratory distress. On examination chest few crackles and crepitations at the bases 2+ pedal edema present. Plan is to do the ABG, to give CT scan of the chest without contrast and to give Lasix 40 mg IV 1 dose. Patient is going to be moved to [facility]. PT Is a full code. Reason For Visit: PNEUMONIA,SEPSIS Physical Exam Vital Signs: Temp Pulse Resp BP Pulse Ox 98.2 F 107 H 18 156/85 H 84 L 10/27/18 09:54 10/27/18 09:54 10/27/18 09:54 10/27/18 09:54 10/27/18 08:45 Intake & Output 10/26/18 10/27/18 10/28/18 06:59 06:59 06:59 Intake Total 1478 1286 Output Total 1075 975 Balance 403 311 Weight 94.4 kg 95 kg General appearance: PRESENT: no acute distress, cooperative, mild distress Head exam: PRESENT: atraumatic Eye exam: PRESENT: PERRLA Mouth exam: PRESENT: moist, tongue midline Teeth exam: PRESENT: poor dentation Neck exam: ABSENT: carotid bruit, JVD, lymphadenopathy, thyromegaly Respiratory exam: PRESENT: decreased breath sounds Cardiovascular exam: PRESENT: tachycardia GI/Abdominal exam: PRESENT: normal bowel sounds, soft. ABSENT: distended, guarding, mass, organolmegaly, rebound, tenderness Rectal exam: PRESENT: deferred Neurological exam: PRESENT: alert, awake, oriented to person, oriented to place, oriented to time, oriented to situation, CN II-XII grossly intact. ABSENT: motor sensory deficit Psychiatric exam: PRESENT: appropriate affect, normal mood. ABSENT: homicidal ideation, suicidal ideation Results Laboratory Results: 10/27/18 05:35 10/27/18 05:35 10/27/18 10/27/18 05:35 05:35 WBC 7.5 RBC 4.01 L Hgb 12.2 L Hct 36.6 L MCV 91 MCH 30.4 MCHC 33.3 RDW 14.2 H Plt Count 287 Seg Neutrophils % 76.8 Lymphocytes % 11.2 L Monocytes % 9.8 Eosinophils % 1.6 Basophils % 0.6 Absolute Neutrophils 5.8 Absolute Lymphocytes 0.8 Absolute Monocytes 0.7 Absolute Eosinophils 0.1 Absolute Basophils 0.0 Sodium 135.9 L Potassium 4.0 Chloride 105 Carbon Dioxide 23 Anion Gap 8 BUN 11 Creatinine 0.93 Est GFR ( Amer) > 60 Est GFR (Non-Af Amer) > 60 Glucose 90 Calcium 8.7 Magnesium 1.8 Total Bilirubin 0.5 AST 26 Alkaline Phosphatase 70 Total Protein 5.1 L Albumin 2.6 L 10/23/18 21:28 Sputum Gram Stain - Final 10/23/18 21:28 Sputum Sputum Culture - Final C.albicans/C.dubliniensis Normal Raphael Absent 10/19/18 10/19/18 10/19/18 07:28 08:49 08:49 Troponin I Cancelled < 0.012 NT-Pro-B Natriuret Pep 1030 H Impressions: Head CT 10/19/18 09:52 IMPRESSION: MILD CHRONIC CHANGES OF ATROPHY AND MICROVASCULAR ISCHEMIA. NO ACUTE PROCESS. ETHMOID, MAXILLARY AND SPHENOID SINUS DISEASE. EVIDENCE OF ACUTE STROKE: NO Interventional Vascular Procedure 10/20/18 00:00 IMPRESSION: SUCCESSFUL PLACEMENT OF A 5 FR DUAL LUMEN 42 CM PICC IN THE LEFT BASILIC VEIN. PICC Line Insertion 10/20/18 10:43 IMPRESSION: SUCCESSFUL PLACEMENT OF A 5 FR DUAL LUMEN 42 CM PICC IN THE LEFT BASILIC VEIN. Modified Barium Swallow 10/24/18 00:00 IMPRESSION: She Silent subglottic aspiration with the initial swallow of thin liquid barium. Subsequent swallows were well tolerated by the patient PLEASE SEE SPEECH PATHOLOGIST REPORT FOR OTHER FINDINGS AND RECOMMENDATIONS. Chest X-Ray 10/25/18 00:00 IMPRESSION: Airspace disease in the left base, atelectasis versus pneumonia. Left pleural effusion and minimal right pleural effusion. Cardiomegaly without katja pulmonary edema. Assessment and Plan - Diagnosis (1) Left lower lobe pneumonia Qualifiers: Aspiration pneumonia type: unspecified Is this a current diagnosis for this admission?: Yes Plan: Community-acquired versus aspiration pneumonia. CXR reveals left lower lobe pneumonia. WBCs are normal. However, patient with elevated temperature, tachycardia, tachypnea, hypoxia, and hypotension with elevated lactic acid. Blood cultures are pending. Sputum cultures pending. Patient is admitted to the ICU on continuous cardiac telemetry. Provide supplemental oxygen via nasal cannula or BiPAP as needed to maintain saturations greater than 90%. Is empirically placed on IV azithromycin and Zosyn for coverage of community- acquired and possible aspiration (Pseudomonas) event. He is started on scheduled and as needed nebulizer treatments. Start Mucinex twice daily. Robitussin as needed for cough. Encourage pulmonary toilet when able to participate. 10/25/2018-patient is on BiPAP pulse ox is 96%. Plan is to repeat the chest x-ray today. blood Cultures and sputum cultures are negative so far. pt is presently on IV Zosyn and vancomycin. 10/26/2018-patient pulse ox today is 97% on 4 L. Repeat chest x-ray done yesterday shows airspace disease in the left base and left pleural effusion and minimal right pleural effusion. Plan is to continue the antibiotic therapy and give Lasix 40 mg IV 1 dose. 10/27/2018-patient's pulse ox is 97% on 3 L initially R pulse ox dropped to 82-83 requiring BiPAP. Patient looks in fluid overload and in respiratory distress moderate respiratory distress chest examination INDICATES crackles at the bases. Plan is to do the chest x-ray to restart IV Zosyn patient is already on IV vancomycin. To repeat the cultures today. Plan to do the ABG. Patient is going to be moved to [facility]. (2) New onset a-fib Is this a current diagnosis for this admission?: Yes Plan: Now rate controlled and in sinus rhythm 10/25/2018-patient's pulse rate is 77 today rate controlled. Patient is presently not on rate controlled medications. Not on anticoagulation. To start him on aspirin 325 mg p.o. daily from today. 10/26/2018-patient's heart rate today is 77 stable. Now in sinus rhythm. 10/27/2018-patient's heart rate is 101 tachycardic most likely secondary to moderate respiratory distress. 10/27/2018-patient is heart rate is around 100 in a sinus tachycardia. Not in A. fib at this point. (3) Acute kidney injury Is this a current diagnosis for this admission?: Yes Plan: Improving. 10/25/2018-patient serum creatinine on 10/20/2018 is 1.35 it was improved to 0.99 today. KERON is resolving. Patient's baseline creatinine is around 1. 10/26/2018-patient came in with serum creatinine 1.35 and was improved to 1 yesterday. KERON due to prerenal causes resolved. 10/27/2018-patient serum creatinine is 0.9 admitted with KERON which was resolved. (4) Sepsis Is this a current diagnosis for this admission?: Yes Plan: Sepsis as evidenced by fever, tachycardia, tachypnea, hypotension and source of infection. 10/25/2018-patient admitted with sepsis fever is resolved T-max is 98.4 tachycardia is resolved heart rate is 77 KERON improved. Hypotension is resolved. Blood cultures and sputum cultures are negative so far. Initial admission lactic acid is elevated which was resolving now. 10/26/2018-patient admitted with sepsis which was resolved. Blood pressures are stable. KERON resolved. Cultures are negative. 10/27/2018-patient admitted with sepsis which was resolved today he is more in respiratory distress probably secondary to fluid overload or aspiration pneumonia Zosyn was restarted patient is already on IV vancomycin. (5) Acute respiratory failure with hypoxia Is this a current diagnosis for this admission?: Yes Plan: Secondary to #1. Management as above. 10/25/2018-patient admitted with acute hypoxic respiratory failure with hypoxia patient is on BiPAP pulse ox 86% this morning. Patient receiving as needed nebulizations. Plan is to continue the present management. 10/26/2018-patient admitted with acute hypoxic respiratory failure initially on BiPAP. Presently he is on PRN BiPAP on 4 L oxygen this morning pulse ox 97%. Family is expressing desire to take him home once is stable. 10/27/2018-patient admitted with acute on chronic respiratory failure initially requiring BiPAP again today is on BiPAP this morning. Because of moderate respiratory distress plan is to do the CT chest continue the antibiotic therapy ABG and upgrade him to IMCU. Patient is a full code. (6) Aspiration pneumonia Is this a current diagnosis for this admission?: No Plan: 10/26/2018-as per the speech pathology patient is high risk for silent aspiration pneumonia. Presently on nectar thickened liquids and mechanical soft with chopped meats. Plan is to continue the present management. Chest x-ray did not suggestive any exacerbation pneumonia. 10/27/2018-patient is a high risk for aspiration pneumonia the following the speech recommendations like chopped meat and nectar thickened liquids and mechanical soft diet.
[2018-10-27] MEDS: FLUTICASONE/VILANTEROL 100-25 MCG/DOSE IH SCH (11:03)
[2018-10-27] MEDS: ASPIRIN 325 MG TABLET PO SCH (11:03)
[2018-10-27] MEDS: GUAIFENESIN 600 MG TABLET.SA PO SCH ×2 (11:03→21:34)
[2018-10-27] MEDS: AMLODIPINE BESYLATE 10 MG TABLET PO SCH (11:03)
[2018-10-27] MEDS: ASCORBIC ACID 500 MG TABLET PO SCH (11:04)
[2018-10-27] MEDS: MULTIVITAMIN TABLET PO SCH (11:04)
[2018-10-27] MEDS: CHOLECALCIFEROL (D3) 1,000 UNIT (25 MCG) TABLET PO SCH (11:04)
[2018-10-27] MEDS: CYCLOSPORINE 0.05% OPH EMULSIO 0.4 ML DROPERETTE OU SCH ×2 (11:20→21:18)
[2018-10-27] MEDS: PIPERACILLIN SODIUM/TAZOBACTAM 3.375 GM in NORMAL SALINE 100 ML IV SCH ×3 (11:20→21:17)
[2018-10-27] MEDS: NORMAL SALINE 10 ML SDV (SCHEDULED) IV SCH ×2 (11:21→21:18)
[2018-10-27 11:26] LABS: ARTERIAL BLOOD BASE EXCESS -2.5 mmol/L; ARTERIAL BLOOD H2CO3 1.18 mmol/L (1.05-1.35); ARTERIAL BLOOD HCO3 22.4 mmol/L (20-24); ARTERIAL BLOOD O2 SATURATION 91.2 % (94-98); ARTERIAL BLOOD PCO2 39.3 mmHg (35-45); ARTERIAL BLOOD PH 7.37 (7.35-7.45); ARTERIAL BLOOD PO2 61.8 mmHg (80-100); ARTERIAL BLOOD TOTAL CO2 23.6 mmol/L (23-27)
[2018-10-27 11:27] LABS: ARTERIAL BLOOD FIO2 50%
[2018-10-27] MEDS: FUROSEMIDE INJ/PF 40 MG/4 ML SDV IV SCH (21:17)
[2018-10-27] MEDS: MONTELUKAST SODIUM 10 MG TABLET PO SCH (21:35)
[2018-10-28] MEDS: IPRATROPIUM/ALBUTEROL 0.5-2.5 MG/3 ML AMPUL NEB SCH ×3 (00:20→15:34)
[2018-10-28] MEDS: PIPERACILLIN SODIUM/TAZOBACTAM 3.375 GM in NORMAL SALINE 100 ML IV SCH ×4 (02:59→21:24)
[2018-10-28] MEDS: CARBIDOPA/LEVODOPA 25-100 MG TABLET PO SCH ×3 (05:19→21:25)
[2018-10-28] MEDS: PANTOPRAZOLE SODIUM 40 MG TABLET.DR PO SCH (05:19)
[2018-10-28] MEDS: HEPARIN SOD (PORCINE) 5,000 UNIT/ML 1 ML VIAL SUBCUT SCH ×3 (05:21→21:24)
[2018-10-28 07:28] LABS: ALBUMIN 2.7 g/dL (3.5-5.0); ALKALINE PHOSPHATASE 63 U/L (38-126); ANION GAP 10 (5-19); ASPARTATE AMINO TRANSFERASE 20 U/L (17-59); BILIRUBIN,DIRECT 0.3 mg/dL (0.0-0.4); BILIRUBIN,TOTAL 0.7 mg/dL (0.2-1.3); BLOOD UREA NITROGEN 13 mg/dL (7-20); CALCIUM 8.6 mg/dL (8.4-10.2); CARBON DIOXIDE 28 mmol/L (22-30); CHLORIDE 99 mmol/L (98-107); GLUCOSE 112 mg/dL (75-110); POTASSIUM 3.6 mmol/L (3.6-5.0); TOTAL PROTEIN 5.2 g/dL (6.3-8.2)
[2018-10-28 07:39] LABS: ABSOLUTE EOSINOPHILS # (AUTO) 0.1 10^3/uL (0.0-0.6); ABSOLUTE LYMPHOCYTES (AUTO) 0.8 10^3/uL (0.5-4.7); ABSOLUTE NEUT (AUTO) 12.7 10^3/uL (1.7-8.2); BASOPHILS % (AUTO) 0.3 % (0-2); EOSINOPHILS % (AUTO) 0.9 % (0-6); HEMATOCRIT 36.7 % (37.9-51.0); HEMOGLOBIN 12.3 g/dL (13.5-17.0); LYMPHOCYTES % (AUTO) 5.3 % (13-45); MEAN CORPUSCULAR HEMOGLOBIN 30.4 pg (27.0-33.4); MEAN CORPUSCULAR HGB CONC 33.6 g/dL (32.0-36.0); MEAN CORPUSCULAR VOLUME 90 fl (80-97); MONOCYTES % (AUTO) 6.6 % (3-13); PLATELET COUNT 264 10^3/uL (150-450); RED BLOOD COUNT 4.07 10^6/uL (4.35-5.55); RED CELL DISTRIBUTION WIDTH 14.2 % (11.5-14.0); SEGMENTED NEUTROPHILS % (AUTO) 86.9 % (42-78); TOTAL CELLS COUNTED % (AUTO) 100 %; WHITE BLOOD COUNT 14.6 10^3/uL (4.0-10.5)
[2018-10-28] MEDS: FUROSEMIDE INJ/PF 40 MG/4 ML SDV IV SCH ×2 (09:02→21:24)
[2018-10-28] MEDS: ASPIRIN 325 MG TABLET PO SCH (09:02)
[2018-10-28] MEDS: CHOLECALCIFEROL (D3) 1,000 UNIT (25 MCG) TABLET PO SCH (09:02)
[2018-10-28] MEDS: AMLODIPINE BESYLATE 10 MG TABLET PO SCH (09:02)
[2018-10-28] MEDS: CYCLOSPORINE 0.05% OPH EMULSIO 0.4 ML DROPERETTE OU SCH ×2 (09:03→21:35)
[2018-10-28] MEDS: NORMAL SALINE 10 ML SDV (SCHEDULED) IV SCH ×2 (09:03→21:26)
[2018-10-28] MEDS: ASCORBIC ACID 500 MG TABLET PO SCH (09:03)
[2018-10-28] MEDS: MULTIVITAMIN TABLET PO SCH (09:03)
[2018-10-28] MEDS: GUAIFENESIN 600 MG TABLET.SA PO SCH ×2 (09:03→21:26)
[2018-10-28] MEDS: FLUTICASONE/VILANTEROL 100-25 MCG/DOSE IH SCH (10:13)
--- NOTE | 2018-10-28 10:58 | Progress Note Acknowledgement ---
Progress Note Acknowledgement Progess Note Acknowledgement: I, the undersigned member of the medical staff with appropriate privileges and with supervisory authority over [ PAC ], a dependent practice allied health professional, acknowledge that I have reviewed the progress notes entered on this patient, and in my professional judgment believe that the assessment made and/or any care evidenced was appropriate
--- NOTE | 2018-10-28 11:04 | PDOC PROGRESS REPORT ---
Subjective Progress Note for:: 10/28/18 Subjective:: 10/28/2018 she was seen by me for the first time today on rounds. Patient was admitted on 731 for fever shortness of breath and confusion. According to the this came on suddenly with fever and chills shortness of breath. According to the she had been taking care of her at home for the last year or so. On admission chest x-ray showed left lower lobe pneumonia, as well as right lower lobe and left upper lobe for possible aspiration. Patient was placed on vancomycin on 10 21 however this was discontinued yesterday and instead was placed on Zosyn 3.375 IV every 6, for his aspiration pneumonia White count is gone up to 14,600 H&H is stable 12.3 36.7 platelets 264,000 electrolytes are normal. BUN of 13 creatinine 1.0. Plan is to continue the Zosyn follow his lab values and repeat chest x-ray Reason For Visit: PNEUMONIA,SEPSIS Physical Exam Vital Signs: Temp Pulse Resp BP Pulse Ox 98.1 F 96 22 H 134/62 H 97 10/28/18 03:10 10/28/18 08:12 10/28/18 08:12 10/28/18 03:10 10/28/18 08:12 Intake & Output 10/27/18 10/28/18 10/29/18 06:59 06:59 06:59 Intake Total 1286 650 100 Output Total 975 4500 Balance 311 -3850 100 Weight 95 kg 106.2 kg General appearance: PRESENT: no acute distress, well-developed, well-nourished Respiratory exam: PRESENT: clear to auscultation etienne, decreased breath sounds. ABSENT: rales, rhonchi, wheezes Cardiovascular exam: PRESENT: RRR. ABSENT: diastolic murmur, rubs, systolic murmur Neurological exam: PRESENT: alert, awake, oriented to person, oriented to place, oriented to time, oriented to situation, CN II-XII grossly intact, other - She carries on normal conversation with me. ABSENT: motor sensory deficit Psychiatric exam: PRESENT: appropriate affect, normal mood, other - is in the room and we have talked concerning his care. ABSENT: homicidal ideation, suicidal ideation Results Laboratory Results: 10/28/18 06:35 10/28/18 06:35 10/27/18 10/28/1810/28/19 11:03 06:35 06:35 WBC 14.6 H RBC 4.07 L Hgb 12.3 L Hct 36.7 L MCV 90 MCH 30.4 MCHC 33.6 RDW 14.2 H Plt Count 264 Seg Neutrophils % 86.9 H Lymphocytes % 5.3 L Monocytes % 6.6 Eosinophils % 0.9 Basophils % 0.3 Absolute Neutrophils 12.7 H Absolute Lymphocytes 0.8 Absolute Monocytes 1.0 Absolute Eosinophils 0.1 Absolute Basophils 0.0 Carbonic Acid 1.18 HCO3/H2CO3 Ratio 18:1 ABG pH 7.37 ABG pCO2 39.3 ABG pO2 61.8 L ABG HCO3 22.4 ABG O2 Saturation 91.2 L ABG Base Excess -2.5 FiO2 50% Sodium 136.5 L Potassium 3.6 Chloride 99 Carbon Dioxide 28 Anion Gap 10 BUN 13 Creatinine 1.07 Est GFR ( Amer) > 60 Est GFR (Non-Af Amer) > 60 Glucose 112 H Calcium 8.6 Magnesium 1.6 Total Bilirubin 0.7 AST 20 Alkaline Phosphatase 63 Total Protein 5.2 L Albumin 2.7 L 10/19/18 10/19/18 10/19/18 07:28 08:49 08:49 Troponin I Cancelled < 0.012 NT-Pro-B Natriuret Pep 1030 H Impressions: Head CT 10/19/18 09:52 IMPRESSION: MILD CHRONIC CHANGES OF ATROPHY AND MICROVASCULAR ISCHEMIA. NO ACUTE PROCESS. ETHMOID, MAXILLARY AND SPHENOID SINUS DISEASE. EVIDENCE OF ACUTE STROKE: NO Interventional Vascular Procedure 10/20/18 00:00 IMPRESSION: SUCCESSFUL PLACEMENT OF A 5 FR DUAL LUMEN 42 CM PICC IN THE LEFT BASILIC VEIN. PICC Line Insertion 10/20/18 10:43 IMPRESSION: SUCCESSFUL PLACEMENT OF A 5 FR DUAL LUMEN 42 CM PICC IN THE LEFT BASILIC VEIN. Modified Barium Swallow 10/24/18 00:00 IMPRESSION: She Silent subglottic aspiration with the initial swallow of thin liquid barium. Subsequent swallows were well tolerated by the patient PLEASE SEE SPEECH PATHOLOGIST REPORT FOR OTHER FINDINGS AND RECOMMENDATIONS. Chest X-Ray 10/25/18 00:00 IMPRESSION: Airspace disease in the left base, atelectasis versus pneumonia. Left pleural effusion and minimal right pleural effusion. Cardiomegaly without katja pulmonary edema. Chest CT 10/27/18 00:00 IMPRESSION: Cardiomegaly. Bilateral pleural effusions. Airspace disease in the right lower lobe, pneumonia versus atelectasis. Airspace disease in the left upper lobe and left lower lobe, pneumonia versus atelectasis. Assessment and Plan - Diagnosis (1) Acute metabolic encephalopathy Is this a current diagnosis for this admission?: Yes Plan: Improving 10/28/2018 patient is awake alert and carries on normal conversation today. Patient is oriented to person place and time (2) Aspiration pneumonia Is this a current diagnosis for this admission?: Yes Plan: 10/26/2018-as per the speech pathology patient is high risk for silent aspiration pneumonia. Presently on nectar thickened liquids and mechanical soft with chopped meats. Plan is to continue the present management. Chest x-ray did not suggestive any exacerbation pneumonia. 10/27/2018-patient is a high risk for aspiration pneumonia the following the speech recommendations like chopped meat and nectar thickened liquids and mechanical soft diet. 10/28/2018 patient was switched to Zosyn yesterday probable aspiration pneumonia patient remains afebrile, white count is gone up slightly - Time Time Spent with patient: 25-34 minutes
[2018-10-28] MEDS: NORMAL SALINE 10 ML SDV (AFTER EACH USE) IV PRN (21:26)
[2018-10-28] MEDS: MONTELUKAST SODIUM 10 MG TABLET PO SCH (21:26)
[2018-10-29] MEDS: IPRATROPIUM/ALBUTEROL 0.5-2.5 MG/3 ML AMPUL NEB SCH ×3 (00:17→15:42)
[2018-10-29] MEDS: PIPERACILLIN SODIUM/TAZOBACTAM 3.375 GM in NORMAL SALINE 100 ML IV SCH ×4 (03:17→20:34)
[2018-10-29] MEDS: NORMAL SALINE 10 ML SDV (AFTER EACH USE) IV PRN ×2 (03:55→21:07)
[2018-10-29] MEDS: CARBIDOPA/LEVODOPA 25-100 MG TABLET PO SCH ×3 (05:22→21:05)
[2018-10-29] MEDS: HEPARIN SOD (PORCINE) 5,000 UNIT/ML 1 ML VIAL SUBCUT SCH ×3 (05:22→21:07)
[2018-10-29] MEDS: PANTOPRAZOLE SODIUM 40 MG TABLET.DR PO SCH (05:23)
[2018-10-29] MEDS: MULTIVITAMIN TABLET PO SCH (09:33)
[2018-10-29] MEDS: GUAIFENESIN 600 MG TABLET.SA PO SCH ×2 (09:33→21:06)
[2018-10-29] MEDS: CHOLECALCIFEROL (D3) 1,000 UNIT (25 MCG) TABLET PO SCH (09:33)
[2018-10-29] MEDS: ASPIRIN 325 MG TABLET PO SCH (09:33)
[2018-10-29] MEDS: FUROSEMIDE INJ/PF 40 MG/4 ML SDV IV SCH ×2 (09:33→21:07)
[2018-10-29] MEDS: AMLODIPINE BESYLATE 10 MG TABLET PO SCH (09:33)
[2018-10-29] MEDS: ASCORBIC ACID 500 MG TABLET PO SCH (09:33)
[2018-10-29] MEDS: NORMAL SALINE 10 ML SDV (SCHEDULED) IV SCH ×2 (09:34→21:07)
[2018-10-29] MEDS: CYCLOSPORINE 0.05% OPH EMULSIO 0.4 ML DROPERETTE OU SCH ×2 (09:35→21:07)
[2018-10-29] MEDS: FLUTICASONE/VILANTEROL 100-25 MCG/DOSE IH SCH (10:36)
[2018-10-29 14:35] LABS: ABSOLUTE EOSINOPHILS # (AUTO) 0.3 10^3/uL (0.0-0.6); ABSOLUTE LYMPHOCYTES (AUTO) 0.8 10^3/uL (0.5-4.7); ABSOLUTE MONOCYTES (AUTO) 0.6 10^3/uL (0.1-1.4); ABSOLUTE NEUT (AUTO) 9.3 10^3/uL (1.7-8.2); BASOPHILS % (AUTO) 0.4 % (0-2); EOSINOPHILS % (AUTO) 2.3 % (0-6); HEMATOCRIT 34.2 % (37.9-51.0); HEMOGLOBIN 11.6 g/dL (13.5-17.0); LYMPHOCYTES % (AUTO) 7.1 % (13-45); MEAN CORPUSCULAR HEMOGLOBIN 30.4 pg (27.0-33.4); MEAN CORPUSCULAR VOLUME 90 fl (80-97); MONOCYTES % (AUTO) 5.9 % (3-13); PLATELET COUNT 294 10^3/uL (150-450); RED BLOOD COUNT 3.82 10^6/uL (4.35-5.55); RED CELL DISTRIBUTION WIDTH 13.9 % (11.5-14.0); SEGMENTED NEUTROPHILS % (AUTO) 84.3 % (42-78); TOTAL CELLS COUNTED % (AUTO) 100 %
[2018-10-29 14:52] LABS: ANION GAP 7 (5-19); BLOOD UREA NITROGEN 12 mg/dL (7-20); CALCIUM 8.1 mg/dL (8.4-10.2); CARBON DIOXIDE 35 mmol/L (22-30); CHLORIDE 92 mmol/L (98-107); GLUCOSE 172 mg/dL (75-110); POTASSIUM 3.1 mmol/L (3.6-5.0)
[2018-10-29] MEDS: MONTELUKAST SODIUM 10 MG TABLET PO SCH (21:06)
[2018-10-30] MEDS: IPRATROPIUM/ALBUTEROL 0.5-2.5 MG/3 ML AMPUL NEB SCH ×3 (00:26→16:03)
[2018-10-30] MEDS: PIPERACILLIN SODIUM/TAZOBACTAM 3.375 GM in NORMAL SALINE 100 ML IV SCH ×4 (03:13→22:14)
[2018-10-30] MEDS: PANTOPRAZOLE SODIUM 40 MG TABLET.DR PO SCH (06:24)
[2018-10-30] MEDS: HEPARIN SOD (PORCINE) 5,000 UNIT/ML 1 ML VIAL SUBCUT SCH ×3 (06:24→22:15)
[2018-10-30] MEDS: CARBIDOPA/LEVODOPA 25-100 MG TABLET PO SCH ×3 (06:24→22:15)
[2018-10-30] MEDS: AMLODIPINE BESYLATE 10 MG TABLET PO SCH (09:34)
[2018-10-30] MEDS: GUAIFENESIN 600 MG TABLET.SA PO SCH ×2 (09:35→22:15)
[2018-10-30] MEDS: ASCORBIC ACID 500 MG TABLET PO SCH (09:35)
[2018-10-30] MEDS: ASPIRIN 325 MG TABLET PO SCH (09:35)
[2018-10-30] MEDS: CHOLECALCIFEROL (D3) 1,000 UNIT (25 MCG) TABLET PO SCH (09:35)
[2018-10-30] MEDS: CYCLOSPORINE 0.05% OPH EMULSIO 0.4 ML DROPERETTE OU SCH ×2 (09:35→22:16)
[2018-10-30] MEDS: MULTIVITAMIN TABLET PO SCH (09:35)
[2018-10-30] MEDS: FUROSEMIDE INJ/PF 40 MG/4 ML SDV IV SCH ×2 (09:35→22:15)
[2018-10-30] MEDS: FLUTICASONE/VILANTEROL 100-25 MCG/DOSE IH SCH (09:36)
[2018-10-30] MEDS: NORMAL SALINE 10 ML SDV (SCHEDULED) IV SCH ×2 (09:36→22:16)
--- NOTE | 2018-10-30 10:16 | PDOC PROGRESS REPORT ---
Subjective Progress Note for:: 10/30/18 Subjective:: 10/28/2018 he was seen by me for the first time today on rounds. Patient was admitted on 10-19 for fever, shortness of breath and confusion. According to the this came on suddenly with fever and chills shortness of breath. According to the she had been taking care of her at home for the last year or so. On admission chest x-ray showed left lower lobe pneumonia, as well as right lower lobe and left upper lobe for possible aspiration. Patient was placed on vancomycin on 10-21 however this was discontinued yesterday and instead was placed on Zosyn 3.375 IV every 6, for his aspiration pneumonia White count is gone up to 14,600 H&H is stable 12.3 36.7 platelets 264,000 electrolytes are normal. BUN of 13 creatinine 1.0. Plan is to continue the Zosyn follow his lab values and repeat chest x-ray 10/29/2018 signs today revealed blood pressure 124/47 temperature 98.2 O2 sat 92% on 2-1/2 L heart rate 82. Labs are being repeated today, continue Zosyn day 2 10/30/2018 patient is being seen for pneumonia. Evidently the patient does in and out caths every 6 hours while at home yesterday the Burns was pulled, patient was unable to void and therefore Burns was reinserted. Adela would like the patient to be in and out every 6 hours. Her standing orders is for bladder scan greater than 300 to be in and out every 4 hours Patient reports she feels better and certainly looks stronger he is sitting up in bed feeding himself. Reason For Visit: PNEUMONIA,SEPSIS Physical Exam Vital Signs: Temp Pulse Resp BP Pulse Ox 97.7 F 84 18 132/59 H 93 10/30/18 08:30 10/30/18 08:30 10/30/18 08:30 10/30/18 08:30 10/30/18 08:30 Intake & Output 10/29/18 10/30/18 10/31/18 06:59 06:59 06:59 Intake Total 1036 1114 Output Total 4175 0950 Balance -6199 -8468 Weight 102.9 kg 100.3 kg General appearance: PRESENT: no acute distress, well-developed, well-nourished Head exam: PRESENT: atraumatic, normocephalic Respiratory exam: PRESENT: rhonchi Cardiovascular exam: PRESENT: RRR. ABSENT: diastolic murmur, rubs, systolic murmur Neurological exam: PRESENT: alert, awake, oriented to person, oriented to place, oriented to time, oriented to situation, CN II-XII grossly intact, other - Generally weak but nothing focal. ABSENT: motor sensory deficit Psychiatric exam: PRESENT: appropriate affect, flat affect, normal mood, other - Patient answers questions appropriately somewhat flat affect sitting up in bed feeding himself. ABSENT: homicidal ideation, suicidal ideation Results Laboratory Results: 10/29/18 14:03 10/29/18 14:03 10/29/18 10/29/18 14:03 14:03 WBC 11.0 H RBC 3.82 L Hgb 11.6 L Hct 34.2 L MCV 90 MCH 30.4 MCHC 34.0 RDW 13.9 Plt Count 294 Seg Neutrophils % 84.3 H Lymphocytes % 7.1 L Monocytes % 5.9 Eosinophils % 2.3 Basophils % 0.4 Absolute Neutrophils 9.3 H Absolute Lymphocytes 0.8 Absolute Monocytes 0.6 Absolute Eosinophils 0.3 Absolute Basophils 0.0 Sodium 134.0 L Potassium 3.1 L Chloride 92 L Carbon Dioxide 35 H Anion Gap 7 BUN 12 Creatinine 1.11 Est GFR ( Amer) > 60 Est GFR (Non-Af Amer) > 60 Glucose 172 H Calcium 8.1 L 10/19/18 10/19/18 10/19/18 07:28 08:49 08:49 Troponin I Cancelled < 0.012 NT-Pro-B Natriuret Pep 1030 H Impressions: Head CT 10/19/18 09:52 IMPRESSION: MILD CHRONIC CHANGES OF ATROPHY AND MICROVASCULAR ISCHEMIA. NO ACUTE PROCESS. ETHMOID, MAXILLARY AND SPHENOID SINUS DISEASE. EVIDENCE OF ACUTE STROKE: NO Interventional Vascular Procedure 10/20/18 00:00 IMPRESSION: SUCCESSFUL PLACEMENT OF A 5 FR DUAL LUMEN 42 CM PICC IN THE LEFT BASILIC VEIN. PICC Line Insertion 10/20/18 10:43 IMPRESSION: SUCCESSFUL PLACEMENT OF A 5 FR DUAL LUMEN 42 CM PICC IN THE LEFT BASILIC VEIN. Modified Barium Swallow 10/24/18 00:00 IMPRESSION: She Silent subglottic aspiration with the initial swallow of thin liquid barium. Subsequent swallows were well tolerated by the patient PLEASE SEE SPEECH PATHOLOGIST REPORT FOR OTHER FINDINGS AND RECOMMENDATIONS. Chest X-Ray 10/25/18 00:00 IMPRESSION: Airspace disease in the left base, atelectasis versus pneumonia. Left pleural effusion and minimal right pleural effusion. Cardiomegaly without katja pulmonary edema. Chest CT 10/27/18 00:00 IMPRESSION: Cardiomegaly. Bilateral pleural effusions. Airspace disease in the right lower lobe, pneumonia versus atelectasis. Airspace disease in the left upper lobe and left lower lobe, pneumonia versus atelectasis. Assessment and Plan - Diagnosis (1) Acute metabolic encephalopathy Is this a current diagnosis for this admission?: Yes Plan: Improving 10/28/2018 patient is awake alert and carries on normal conversation today. Patient is oriented to person place and time. 10/29/2018 patient's mental status is normal, able to carry on a conversation with me today. No signs of encephalopathy 10/30/2018 patient remains neurologically stable answering questions no focal findings (2) Aspiration pneumonia Is this a current diagnosis for this admission?: Yes Plan: 10/26/2018-as per the speech pathology patient is high risk for silent aspiration pneumonia. Presently on nectar thickened liquids and mechanical soft with chopped meats. Plan is to continue the present management. Chest x-ray did not suggestive any exacerbation pneumonia. 10/27/2018-patient is a high risk for aspiration pneumonia the following the speech recommendations like chopped meat and nectar thickened liquids and mechanical soft diet. 10/28/2018 patient was switched to Zosyn yesterday probable aspiration pneumonia patient remains afebrile, white count is gone up slightly 10/29/2018 vital signs are stable, he is afebrile, normotensive 10/30/2018 chest x-ray will be repeated today last one was 3 days ago temperature 97.7 pulse 84 blood pressure 132/59 O2 sat 93% on 3 L nasal cannula. Patient appears to be in no distress. This is day 3 of Zosyn
--- NOTE | 2018-10-30 11:41 | RADIOLOGY REPORT (SQ) ---
EXAM DESCRIPTION: CHEST 2 VIEWS COMPLETED DATE/TIME: 10/30/2018 11:30 am REASON FOR STUDY: follow up pneumonia COMPARISON: 10/25/2018 EXAM PARAMETERS: NUMBER OF VIEWS: two views TECHNIQUE: Digital Frontal and Lateral radiographic views of the chest acquired. RADIATION DOSE: NA LIMITATIONS: none FINDINGS: LUNGS AND PLEURA: Increasing left basilar opacity an extension to a perihilar infiltrate. There is a decrease in the pleural effusions left greater than right. MEDIASTINUM AND HILAR STRUCTURES: No masses or contour abnormalities. HEART AND VASCULAR STRUCTURES: Mild vascular congestion. BONES: No acute findings. HARDWARE: None in the chest. OTHER: No other significant finding. IMPRESSION: Decrease in the pleural effusions. Increasing parenchymal opacities in the left lung co mpatible with pneumonia. Vascular congestion. TECHNICAL DOCUMENTATION: JOB ID: [id number] [employer]- All Rights Reserved Reading location - IP/workstation name: [email or web address]
[2018-10-30] MEDS ORDERED: LIDOCAINE 2% INJ-PF (100 MG/5 ML) SYRINGE ONE (14:10)
[2018-10-30] MEDS ORDERED: LIDOCAINE 2% URO-JET 5 ML KIT MM PRN (14:18)
[2018-10-30] MEDS: POTASSI CL 20 MEQ/50 ML RIDER 20 MEQ/50 ML RTUPB IV SCH ×2 (15:01→20:26)
[2018-10-30] MEDS ORDERED: LIDOCAINE 2% URO-JET 5 ML KIT MM ONE (15:30)
[2018-10-30 16:23] LABS: APPEARANCE,URINE CLEAR; BILIRUBIN,URINE NEGATIVE (NEGATIVE); COLOR,URINE STRAW; GLUCOSE, URINE NEGATIVE (NEGATIVE); KETONES,URINE NEGATIVE (NEGATIVE); LEUKOCYTE ESTERASE,URINE NEGATIVE (NEGATIVE); NITRITE,URINE NEGATIVE (NEGATIVE); PROTEIN,URINE NEGATIVE (NEGATIVE); URINE SPECIFIC GRAVITY 1.009; UROBILINOGEN,URINE NEGATIVE mg/dL (<2.0)
[2018-10-30] MEDS: MONTELUKAST SODIUM 10 MG TABLET PO SCH (22:15)
[2018-10-31] MEDS: IPRATROPIUM/ALBUTEROL 0.5-2.5 MG/3 ML AMPUL NEB SCH ×4 (00:27→23:42)
[2018-10-31] MEDS: PIPERACILLIN SODIUM/TAZOBACTAM 3.375 GM in NORMAL SALINE 100 ML IV SCH ×4 (04:02→21:16)
[2018-10-31] MEDS: CARBIDOPA/LEVODOPA 25-100 MG TABLET PO SCH ×3 (05:51→21:17)
[2018-10-31] MEDS: PANTOPRAZOLE SODIUM 40 MG TABLET.DR PO SCH (05:51)
[2018-10-31] MEDS: HEPARIN SOD (PORCINE) 5,000 UNIT/ML 1 ML VIAL SUBCUT SCH ×3 (05:53→21:17)
[2018-10-31] MEDS ORDERED: TAMSULOSIN HCL 0.4 MG CAP.SR.24H PO ONE (07:30)
[2018-10-31] MEDS: FUROSEMIDE INJ/PF 40 MG/4 ML SDV IV SCH ×2 (08:59→21:16)
[2018-10-31] MEDS: MULTIVITAMIN TABLET PO SCH (09:00)
[2018-10-31] MEDS: ASPIRIN 325 MG TABLET PO SCH (09:00)
[2018-10-31] MEDS: CHOLECALCIFEROL (D3) 1,000 UNIT (25 MCG) TABLET PO SCH (09:00)
[2018-10-31] MEDS: AMLODIPINE BESYLATE 10 MG TABLET PO SCH (09:00)
[2018-10-31] MEDS: CYCLOSPORINE 0.05% OPH EMULSIO 0.4 ML DROPERETTE OU SCH ×2 (09:00→21:17)
[2018-10-31] MEDS: FLUTICASONE/VILANTEROL 100-25 MCG/DOSE IH SCH (09:00)
[2018-10-31] MEDS: GUAIFENESIN 600 MG TABLET.SA PO SCH ×2 (09:00→21:17)
[2018-10-31] MEDS: ASCORBIC ACID 500 MG TABLET PO SCH (09:00)
[2018-10-31] MEDS: NORMAL SALINE 10 ML SDV (SCHEDULED) IV SCH ×2 (09:01→21:18)
[2018-10-31] MEDS: POTASSI CL 20 MEQ/50 ML RIDER 20 MEQ/50 ML RTUPB IV SCH (09:01)
[2018-10-31 10:43] LABS: ABSOLUTE BASOPHILS # (AUTO) 0.1 10^3/uL (0.0-0.2); ABSOLUTE EOSINOPHILS # (AUTO) 0.4 10^3/uL (0.0-0.6); ABSOLUTE LYMPHOCYTES (AUTO) 0.9 10^3/uL (0.5-4.7); ABSOLUTE MONOCYTES (AUTO) 0.8 10^3/uL (0.1-1.4); ABSOLUTE NEUT (AUTO) 5.5 10^3/uL (1.7-8.2); BASOPHILS % (AUTO) 1.1 % (0-2); EOSINOPHILS % (AUTO) 4.9 % (0-6); HEMATOCRIT 30.5 % (37.9-51.0); HEMOGLOBIN 10.5 g/dL (13.5-17.0); LYMPHOCYTES % (AUTO) 12.1 % (13-45); MEAN CORPUSCULAR HEMOGLOBIN 31.1 pg (27.0-33.4); MEAN CORPUSCULAR HGB CONC 34.3 g/dL (32.0-36.0); MEAN CORPUSCULAR VOLUME 91 fl (80-97); MONOCYTES % (AUTO) 9.9 % (3-13); PLATELET COUNT 275 10^3/uL (150-450); RED BLOOD COUNT 3.36 10^6/uL (4.35-5.55); TOTAL CELLS COUNTED % (AUTO) 100 %; WHITE BLOOD COUNT 7.7 10^3/uL (4.0-10.5)
[2018-10-31 12:00] LABS: ANION GAP 6 (5-19); BLOOD UREA NITROGEN 16 mg/dL (7-20); CALCIUM 8.2 mg/dL (8.4-10.2); CARBON DIOXIDE 38 mmol/L (22-30); CHLORIDE 91 mmol/L (98-107); GLUCOSE 122 mg/dL (75-110); POTASSIUM 3.6 mmol/L (3.6-5.0)
[2018-10-31] MEDS: TAMSULOSIN HCL 0.4 MG CAP.SR.24H PO SCH (17:27)
--- NOTE | 2018-10-31 18:42 | Progress Note ---
Provider Note Provider Note: 10/31/2018 I went and talked with family guille at 1800 hrs. count appears to be coming down response to antibiotics. Patient's vital signs are remaining stable. She remains afebrile pressure is normal for him. Stop the Norvasc today because he was put on Flomax, and the family states that while on Flomax sometimes his blood pressure does go down. Hopefully they will be able to take him home later on towards the end of the week they have 24-hour 7 days a week sitters, they have been dealing with this situation for the last year and a half. The dementia is not going to improve. The weakness is not going to improve. We are waiting for the patient be able to void out residual in his bladder up in the 400s, and waiting for his chest and pneumonia proved to the point where he can be switched to p.o. antibiotics.
[2018-10-31] MEDS: MONTELUKAST SODIUM 10 MG TABLET PO SCH (21:17)
[2018-11-01] MEDS: PIPERACILLIN SODIUM/TAZOBACTAM 3.375 GM in NORMAL SALINE 100 ML IV SCH ×4 (02:46→21:40)
[2018-11-01] MEDS: HEPARIN SOD (PORCINE) 5,000 UNIT/ML 1 ML VIAL SUBCUT SCH ×3 (06:08→21:40)
[2018-11-01] MEDS: CARBIDOPA/LEVODOPA 25-100 MG TABLET PO SCH ×3 (06:08→21:40)
[2018-11-01] MEDS: PANTOPRAZOLE SODIUM 40 MG TABLET.DR PO SCH (06:08)
[2018-11-01] MEDS: IPRATROPIUM/ALBUTEROL 0.5-2.5 MG/3 ML AMPUL NEB SCH ×2 (09:01→16:25)
[2018-11-01] MEDS: ASPIRIN 325 MG TABLET PO SCH (10:04)
[2018-11-01] MEDS: FLUTICASONE/VILANTEROL 100-25 MCG/DOSE IH SCH (10:04)
[2018-11-01] MEDS: CHOLECALCIFEROL (D3) 1,000 UNIT (25 MCG) TABLET PO SCH (10:04)
[2018-11-01] MEDS: FUROSEMIDE INJ/PF 40 MG/4 ML SDV IV SCH ×2 (10:04→21:40)
[2018-11-01] MEDS: ASCORBIC ACID 500 MG TABLET PO SCH (10:04)
[2018-11-01] MEDS: GUAIFENESIN 600 MG TABLET.SA PO SCH ×2 (10:05→21:41)
[2018-11-01] MEDS: CYCLOSPORINE 0.05% OPH EMULSIO 0.4 ML DROPERETTE OU SCH ×2 (10:05→21:41)
[2018-11-01] MEDS: NORMAL SALINE 10 ML SDV (SCHEDULED) IV SCH ×2 (10:05→21:41)
[2018-11-01] MEDS: MULTIVITAMIN TABLET PO SCH (10:05)
--- NOTE | 2018-11-01 15:47 | PDOC PROGRESS REPORT ---
Subjective Progress Note for:: 11/01/18 Subjective:: This is 82 years old male patient past medical history of Parkinson's disease and bronchial asthma brought from home chief complaint of shortness of breath, confusion and fever. In ER patient found to be febrile with T-max of 101 tachycardic with heart rate of 109, hypotensive with blood pressure of 88/59, tachypnea with respiratory rate of 28. Yesterday his white cell count was 10,000 today it is 29,000. His chest x-ray shows left lower lobe consolid ation. Patient is being treated as a case of pneumonia. He has been started on vancomycin and Zosyn. I will de-escalate his antibiotic based on his culture results and clinical response. This morning patient seen resting in bed comfortably he is awake alert and oriented. 10/21/2018: Patient seen and examined while he is resting in bed. His blood pressure is still low and patient restarted on Levophed at 1 joe. His blood work shows mild hypokalemia with potassium of 3.1 hypocalcemia with calcium level of 6.9. His acute kidney injury is improving that his creatinine trended down from 1.35-1.07. 10/22/2018: Patient seen propped up in bed. He is somewhat sleepy but arousable and responds appropriately. Yesterday patient had an episode of new onset A. fib for which you Dr. Sterling consulted who recommended to pull PICC line by few millimeters. He suspected may be the PICC line triggered the A. fib. Currently patient is in sinus rhythm and heart rate is well controlled. Patient is taken off Levophed since his blood pressure stabilized. Potentially he is downgraded able tomorrow to the regular floor. 10/23/2018: Patient is seen propped up in bed. He saturates 97% while he has been on BiPAP. 10/24/2018: Patient seen resting in bed. He has uneventful night. His modified barium swallow reported as silent subglottic aspiration was initially swallowed thin liquid. Speech therapist recommended mechanical soft, chopped meat and nectar thick liquids. His blood pressure is stable and his blood works are unremarkable patient is stable enough to be downgraded to IMCU. Palliative care is scheduled to see this patient. 11/01/2018: Patient has not been discharged since his last admission. It was my patient last time. Patient currently is being treated for aspiration pneumonia. His last antibiotic will be November 03. Patient also has a new problem that this urinary retention has been started on Flomax and I added finasteride. We will remove catheter and watch him if he is able to be by himself. Reason For Visit: PNEUMONIA,SEPSIS Physical Exam Vital Signs: Temp Pulse Resp BP Pulse Ox 97.6 F 81 16 113/58 L 95 11/01/18 11:24 11/01/18 14:00 11/01/18 11:24 11/01/18 11:24 11/01/18 11:24 Intake & Output 10/31/18 11/01/18 11/02/18 06:59 06:59 06:59 Intake Total 760 1270 200 Output Total 1425 1775 Balance -665 -505 200 Weight 100.2 kg 98.3 kg General appearance: PRESENT: mild distress Eye exam: PRESENT: conjunctiva pink Ear exam: PRESENT: other - Right ear is full of cerumen wax Neck exam: ABSENT: carotid bruit, JVD, lymphadenopathy, thyromegaly Respiratory exam: PRESENT: decreased breath sounds GI/Abdominal exam: PRESENT: normal bowel sounds, soft. ABSENT: distended, guarding, mass, organolmegaly, rebound, tenderness Neurological exam: PRESENT: alert, awake Results Laboratory Results: 10/31/18 10:28 10/31/18 11:26 10/27/18 14:25 Blood Blood Culture - Final NO GROWTH IN 5 DAYS 10/27/18 14:20 Blood Blood Culture - Final NO GROWTH IN 5 DAYS 10/19/18 10/19/18 10/19/18 07:28 08:49 08:49 Troponin I Cancelled < 0.012 NT-Pro-B Natriuret Pep 1030 H Impressions: Head CT 10/19/18 09:52 IMPRESSION: MILD CHRONIC CHANGES OF ATROPHY AND MICROVASCULAR ISCHEMIA. NO ACUTE PROCESS. ETHMOID, MAXILLARY AND SPHENOID SINUS DISEASE. EVIDENCE OF ACUTE STROKE: NO Interventional Vascular Procedure 10/20/18 00:00 IMPRESSION: SUCCESSFUL PLACEMENT OF A 5 FR DUAL LUMEN 42 CM PICC IN THE LEFT BASILIC VEIN. PICC Line Insertion 10/20/18 10:43 IMPRESSION: SUCCESSFUL PLACEMENT OF A 5 FR DUAL LUMEN 42 CM PICC IN THE LEFT BASILIC VEIN. Modified Barium Swallow 10/24/18 00:00 IMPRESSION: She Silent subglottic aspiration with the initial swallow of thin liquid barium. Subsequent swallows were well tolerated by the patient PLEASE SEE SPEECH PATHOLOGIST REPORT FOR OTHER FINDINGS AND RECOMMENDATIONS. Chest CT 10/27/18 00:00 IMPRESSION: Cardiomegaly. Bilateral pleural effusions. Airspace disease in the right lower lobe, pneumonia versus atelectasis. Airspace disease in the left upper lobe and left lower lobe, pneumonia versus atelectasis. Chest X-Ray 10/30/18 00:00 IMPRESSION: Decrease in the pleural effusions. Increasing parenchymal o pacities in the left lung compatible with pneumonia. Vascular congestion. Assessment and Plan - Diagnosis (1) Urinary retention Is this a current diagnosis for this admission?: Yes Plan: Patient has Burns catheter, has been started on Flomax and finasteride. Will check if he is able to pee by himself. (2) Left lower lobe pneumonia Is this a current diagnosis for this admission?: Yes Plan: Continue current antibiotics. (3) New onset a-fib Is this a current diagnosis for this admission?: Yes Plan: Now rate controlled and in sinus rhythm 10/25/2018-patient's pulse rate is 77 today rate controlled. Patient is presently not on rate controlled medications. Not on anticoagulation. To start him on aspirin 325 mg p.o. daily from today. 10/26/2018-patient's heart rate today is 77 stable. Now in sinus rhythm. 10/27/2018-patient's heart rate is 101 tachycardic most likely secondary to moderate respiratory distress. 10/27/2018-patient is heart rate is around 100 in a sinus tachycardia. Not in A. fib at this point. (4) Acute kidney injury Is this a current diagnosis for this admission?: Yes Plan: Improving. 10/25/2018-patient serum creatinine on 10/20/2018 is 1.35 it was improved to 0.99 today. KERON is resolving. Patient's baseline creatinine is around 1. 10/26/2018-patient came in with serum creatinine 1.35 and was improved to 1 yesterday. KERON due to prerenal causes resolved. 10/27/2018-patient serum creatinine is 0.9 admitted with KERON which was resolved. (5) Sepsis Is this a current diagnosis for this admission?: Yes Plan: Sepsis as evidenced by fever, tachycardia, tachypnea, hypotension and source of infection. 10/25/2018-patient admitted with sepsis fever is resolved T-max is 98.4 tachycardia is resolved heart rate is 77 KERON improved. Hypotension is resolved. Blood cultures and sputum cultures are negative so far. Initial admission lactic acid is elevated which was resolving now. 10/26/2018-patient admitted with sepsis which was resolved. Blood pressures are stable. KERON resolved. Cultures are negative. 10/27/2018-patient admitted with sepsis which was resolved today he is more in res piratory distress probably secondary to fluid overload or aspiration pneumonia Zosyn was restarted patient is already on IV vancomycin. (6) Acute metabolic encephalopathy Is this a current diagnosis for this admission?: Yes Plan: Improving 10/28/2018 patient is awake alert and carries on normal conversation today. Patient is oriented to person place and time. 10/29/2018 patient's mental status is normal, able to carry on a conversation with me today. No signs of encephalopathy 10/30/2018 patient remains neurologically stable answering questions no focal findings (7) Acute hypoxemic respiratory failure Is this a current diagnosis for this admission?: Yes Plan: Has be resolving. Continue current regimen (8) Lactic acidosis Is this a current diagnosis for this admission?: Yes Plan: Improving (9) Parkinsons disease Is this a current diagnosis for this admission?: Yes
[2018-11-01] MEDS: TAMSULOSIN HCL 0.4 MG CAP.SR.24H PO SCH (17:42)
[2018-11-01] MEDS: MONTELUKAST SODIUM 10 MG TABLET PO SCH (21:40)
[2018-11-02] MEDS: IPRATROPIUM/ALBUTEROL 0.5-2.5 MG/3 ML AMPUL NEB SCH ×4 (00:10→23:57)
[2018-11-02] MEDS: PIPERACILLIN SODIUM/TAZOBACTAM 3.375 GM in NORMAL SALINE 100 ML IV SCH ×4 (03:02→22:27)
[2018-11-02] MEDS: PANTOPRAZOLE SODIUM 40 MG TABLET.DR PO SCH (05:21)
[2018-11-02] MEDS: CARBIDOPA/LEVODOPA 25-100 MG TABLET PO SCH ×3 (05:21→22:32)
[2018-11-02] MEDS: HEPARIN SOD (PORCINE) 5,000 UNIT/ML 1 ML VIAL SUBCUT SCH ×3 (05:21→22:32)
[2018-11-02] MEDS: ASPIRIN 325 MG TABLET PO SCH (09:43)
[2018-11-02] MEDS: FUROSEMIDE INJ/PF 40 MG/4 ML SDV IV SCH ×2 (09:43→22:31)
[2018-11-02] MEDS: ASCORBIC ACID 500 MG TABLET PO SCH (09:43)
[2018-11-02] MEDS: MULTIVITAMIN TABLET PO SCH (09:43)
[2018-11-02] MEDS: GUAIFENESIN 600 MG TABLET.SA PO SCH ×2 (09:43→22:32)
[2018-11-02] MEDS: CHOLECALCIFEROL (D3) 1,000 UNIT (25 MCG) TABLET PO SCH (09:43)
[2018-11-02] MEDS: FLUTICASONE/VILANTEROL 100-25 MCG/DOSE IH SCH (09:44)
[2018-11-02] MEDS: CYCLOSPORINE 0.05% OPH EMULSIO 0.4 ML DROPERETTE OU SCH ×2 (09:44→22:49)
[2018-11-02] MEDS: NORMAL SALINE 10 ML SDV (SCHEDULED) IV SCH ×2 (09:45→22:28)
[2018-11-02] MEDS ORDERED: FINASTERIDE 5 MG TABLET PO ONE (10:36)
--- NOTE | 2018-11-02 12:48 | PDOC PROGRESS REPORT ---
Subjective Progress Note for:: 11/02/18 Subjective:: This is 82 years old male patient past medical history of Parkinson's disease and bronchial asthma brought from home chief complaint of shortness of breath, confusion and fever. In ER patient found to be febrile with T-max of 101 tachycardic with heart rate of 109, hypotensive with blood pressure of 88/59, tachypnea with respiratory rate of 28. Yesterday his white cell count was 10,000 today it is 29,000. His chest x-ray shows left lower lobe consolid ation. Patient is being treated as a case of pneumonia. He has been started on vancomycin and Zosyn. I will de-escalate his antibiotic based on his culture results and clinical response. This morning patient seen resting in bed comfortably he is awake alert and oriented. 10/21/2018: Patient seen and examined while he is resting in bed. His blood pressure is still low and patient restarted on Levophed at 1 joe. His blood work shows mild hypokalemia with potassium of 3.1 hypocalcemia with calcium level of 6.9. His acute kidney injury is improving that his creatinine trended down from 1.35-1.07. 10/22/2018: Patient seen propped up in bed. He is somewhat sleepy but arousable and responds appropriately. Yesterday patient had an episode of new onset A. fib for which you Dr. Sterling consulted who recommended to pull PICC line by few millimeters. He suspected may be the PICC line triggered the A. fib. Currently patient is in sinus rhythm and heart rate is well controlled. Patient is taken off Levophed since his blood pressure stabilized. Potentially he is downgraded able tomorrow to the regular floor. 10/23/2018: Patient is seen propped up in bed. He saturates 97% while he has been on BiPAP. 10/24/2018: Patient seen resting in bed. He has uneventful night. His modified barium swallow reported as silent subglottic aspiration was initially swallowed thin liquid. Speech therapist recommended mechanical soft, chopped meat and nectar thick liquids. His blood pressure is stable and his blood works are unremarkable patient is stable enough to be downgraded to IMCU. Palliative care is scheduled to see this patient. 11/01/2018: Patient has not been discharged since his last admission. It was my patient last time. Patient currently is being treated for aspiration pneumonia. His last antibiotic will be November 03. Patient also has a new problem that this urinary retention has been started on Flomax and I added finasteride. We will remove catheter and watch him if he is able to be by himself. 11/02/2018: Patient seen propped up in bed. No adverse event overnight. Patient to complete his course of antibiotics tomorrow. His Burns will be removed tomorrow and watch if patient stable to urinate by himself. If he is not able to pee by himself patient will be discharged with Burns catheter and follow-up with urologist. Reason For Visit: PNEUMONIA,SEPSIS Physical Exam Vital Signs: Temp Pulse Resp BP Pulse Ox 97.4 F 82 16 119/60 94 11/02/18 07:55 11/02/18 08:24 11/02/18 08:24 11/02/18 07:55 11/02/18 08:24 Intake & Output 11/01/18 11/02/18 11/03/18 06:59 06:59 06:59 Intake Total 1270 754 100 Output Total 1775 1950 Balance -505 -1196 100 Weight 98.3 kg 97.2 kg General appearance: PRESENT: no acute distress Eye exam: PRESENT: conjunctiva pink Neck exam: ABSENT: carotid bruit, JVD, lymphadenopathy, thyromegaly Respiratory exam: PRESENT: clear to auscultation etienne. ABSENT: rales, rhonchi, wheezes Cardiovascular exam: PRESENT: RRR. ABSENT: diastolic murmur, rubs, systolic [place] Neurological exam: PRESENT: alert, awake Results Laboratory Results: 10/31/18 10:28 10/31/18 11:26 10/27/18 14:25 Blood Blood Culture - Final NO GROWTH IN 5 DAYS 10/27/18 14:20 Blood Blood Culture - Final NO GROWTH IN 5 DAYS 10/19/18 10/19/18 10/19/18 07:28 08:49 08:49 Troponin I Cancelled < 0.012 NT-Pro-B Natriuret Pep 1030 H Impressions: Head CT 10/19/18 09:52 IMPRESSION: MILD CHRONIC CHANGES OF ATROPHY AND MICROVASCULAR ISCHEMIA. NO ACUTE PROCESS. ETHMOID, MAXILLARY AND SPHENOID SINUS DISEASE. EVIDENCE OF ACUTE STROKE: NO Interventional Vascular Procedure 10/20/18 00:00 IMPRESSION: SUCCESSFUL PLACEMENT OF A 5 FR DUAL LUMEN 42 CM PICC IN THE LEFT BASILIC VEIN. PICC Line Insertion 10/20/18 10:43 IMPRESSION: SUCCESSFUL PLACEMENT OF A 5 FR DUAL LUMEN 42 CM PICC IN THE LEFT BASILIC VEIN. Modified Barium Swallow 10/24/18 00:00 IMPRESSION: She Silent subglottic aspiration with the initial swallow of thin liquid barium. Subsequent swallows were well tolerated by the patient PLEASE SEE SPEECH PATHOLOGIST REPORT FOR OTHER FINDINGS AND RECOMMENDATIONS. Chest CT 10/27/18 00:00 IMPRESSION: Cardiomegaly. Bilateral pleural effusions. Airspace disease in the right lower lobe, pneumonia versus atelectasis. Airspace disease in the left upper lobe and left lower lobe, pneumonia versus atelectasis. Chest X-Ray 10/30/18 00:00 IMPRESSION: Decrease in the pleural effusions. Increasing parenchymal opacities in the left lung compatible with pneumonia. Vascular congestion. Assessment and Plan - Diagnosis (1) Urinary retention Is this a current diagnosis for this admission?: Yes Plan: Burns catheter will be taken out tomorrow and patient will be advised that if he is able to urinate by himself. If patient does not urinate by himself Burns catheter will be reinserted and patient discharged with Burns and follow-up with his urologist. (2) Left lower lobe pneumonia Is this a current diagnosis for this admission?: Yes Plan: Continue current antibiotics. (3) New onset a-fib Is this a current diagnosis for this admission?: Yes Plan: Now rate controlled and in sinus rhythm 10/25/2018-patient's pulse rate is 77 today rate controlled. Patient is presently not on rate controlled medications. Not on anticoagulation. To start him on aspirin 325 mg p.o. daily from today. 10/26/2018-patient's heart rate today is 77 stable. Now in sinus rhythm. 10/27/2018-patient's heart rate is 101 tachycardic most likely secondary to moderate respiratory distress. 10/27/2018-patient is heart rate is around 100 in a sinus tachycardia. Not in A. fib at this point. (4) Acute kidney injury Is this a current diagnosis for this admission?: Yes Plan: Improving. 10/25/2018-patient serum creatinine on 10/20/2018 is 1.35 it was improved to 0.99 today. KERON is resolving. Patient's baseline creatinine is around 1. 10/26/2018-patient came in with serum creatinine 1.35 and was improved to 1 yesterday. KERON due to prerenal causes resolved. 10/27/2018-patient serum creatinine is 0.9 admitted with KERON which was resolved. (5) Sepsis Is this a current diagnosis for this admission?: Yes Plan: Sepsis as evidenced by fever, tachycardia, tachypnea, hypotension and source of infection. 10/25/2018-patient admitted with sepsis fever is resolved T-max is 98.4 tachycardia is resolved heart rate is 77 KERON improved. Hypotension is resolved. Blood cultures and sputum cultures are negative so far. Initial admission lactic acid is elevated which was resolving now. 10/26/2018-patient admitted with sepsis which was resolved. Blood pressures are stable. KERON resolved. Cultures are negative. 10/27/2018-patient admitted with sepsis which was resolved today he is more in respiratory distress probably secondary to fluid overload or aspiration pneumonia Zosyn was restarted patient is already on IV vancomycin. (6) Acute metabolic encephalopathy Is this a current diagnosis for this admission?: Yes Plan: Improving 10/28/2018 patient is awake alert and carries on normal conversation today. Patient is oriented to person place and time. 10/29/2018 patient's mental status is normal, able to carry on a conversation with me today. No signs of encephalopathy 10/30/2018 patient remains neurologically stable answering questions no focal findings (7) Acute hypoxemic respiratory failure Is this a current diagnosis for this admission?: Yes Plan: Has be resolving. Continue current regimen (8) Lactic acidosis Is this a current diagnosis for this admission?: Yes Plan: Improving (9) Parkinsons disease Is this a current diagnosis for this admission?: Yes Plan: Stable
[2018-11-02] MEDS: TAMSULOSIN HCL 0.4 MG CAP.SR.24H PO SCH (17:22)
[2018-11-02] MEDS: MONTELUKAST SODIUM 10 MG TABLET PO SCH (22:32)
[2018-11-03] MEDS: PIPERACILLIN SODIUM/TAZOBACTAM 3.375 GM in NORMAL SALINE 100 ML IV SCH ×2 (04:25→09:13)
[2018-11-03] MEDS: CARBIDOPA/LEVODOPA 25-100 MG TABLET PO SCH ×2 (05:21→15:46)
[2018-11-03] MEDS: PANTOPRAZOLE SODIUM 40 MG TABLET.DR PO SCH (05:21)
[2018-11-03] MEDS: HEPARIN SOD (PORCINE) 5,000 UNIT/ML 1 ML VIAL SUBCUT SCH ×2 (05:21→15:46)
[2018-11-03] MEDS: IPRATROPIUM/ALBUTEROL 0.5-2.5 MG/3 ML AMPUL NEB SCH ×2 (07:50→16:06)
[2018-11-03] MEDS: FUROSEMIDE INJ/PF 40 MG/4 ML SDV IV SCH (09:12)
[2018-11-03] MEDS: CHOLECALCIFEROL (D3) 1,000 UNIT (25 MCG) TABLET PO SCH (09:12)
[2018-11-03] MEDS: ASCORBIC ACID 500 MG TABLET PO SCH (09:12)
[2018-11-03] MEDS: ASPIRIN 325 MG TABLET PO SCH (09:12)
[2018-11-03] MEDS: MULTIVITAMIN TABLET PO SCH (09:12)
[2018-11-03] MEDS: GUAIFENESIN 600 MG TABLET.SA PO SCH (09:12)
[2018-11-03] MEDS: NORMAL SALINE 10 ML SDV (SCHEDULED) IV SCH (09:13)
[2018-11-03] MEDS: CYCLOSPORINE 0.05% OPH EMULSIO 0.4 ML DROPERETTE OU SCH (09:13)
[2018-11-03] MEDS: FLUTICASONE/VILANTEROL 100-25 MCG/DOSE IH SCH (09:13)
[2018-11-03] MEDS ORDERED: FINASTERIDE 5 MG TABLET PO SCH (10:00)
[2018-11-03] MEDS ORDERED: LIDOCAINE 2% URO-JET 5 ML KIT MM ONE (15:00)
[2018-11-03] MEDS ORDERED: HYDRALAZINE HCL INJ/PF 20 MG/1 ML SDV IV PRN (15:00)
[2018-11-03 17:13] VITALS: BP 115/47
--- NOTE | 2018-11-07 14:09 | PDOC DISCHARGE SUMMARY ---
General - Admit/Disc Date/PCP Admission Date/Primary Care Provider: 10/19/18 11:48 RAUDEL IBARRA MD Discharge Date: 11/03/18 - Discharge Diagnosis (1) Urinary retention Is this a current diagnosis for this admission?: Yes (2) Left lower lobe pneumonia Is this a current diagnosis for this admission?: Yes (3) New onset a-fib Is this a current diagnosis for this admission?: Yes (4) Acute kidney injury Is this a current diagnosis for this admission?: Yes (5) Sepsis Is this a current diagnosis for this admission?: Yes (6) Acute metabolic encephalopathy Is this a current diagnosis for this admission?: Yes (7) Acute hypoxemic respiratory failure Is this a current diagnosis for this admission?: Yes (8) Lactic acidosis Is this a current diagnosis for this admission?: Yes (9) Parkinsons disease Is this a current diagnosis for this admission?: Yes - Additional Information Resuscitation Status: Full Code Prescriptions: Finasteride [Proscar 5 mg Tablet] 5 mg PO DAILY #30 tablet Home Medications: Azelastine HCl 1 spray NASL BID 02/08/15 Loratadine 10 mg PO DAILY PRN 02/08/15 Montelukast Sodium [Singulair 10 mg Tablet] 10 mg PO DAILY 02/08/15 Budesonide/Formoterol Fumarate [Symbicort HFA 80-4.5 mcg Inhaler 6.9 gm] 1 puff IH BID 03/18/15 Carbidopa/Levodopa [Sinemet 25-100 mg Tablet] 2 tab PO Q8 tablet 03/26/15 Cyclosporine 0.05% Oph Emulsio [Restasis 0.05% Oph Emulsion Pf 0.4 ml] 1 drop OU Q12 droperette 03/26/15 Ascorbic Acid [Vitamin C 500 mg Tablet] 500 mg PO DAILY 03/17/18 Cholecalciferol (Vitamin D3) [Vitamin D3 5000 unit Capsule] 5,000 unit PO DAILY 03/17/18 Multivitamin [Tab-A-Marcela (Multiple Vitamin) Tablet] 1 tab PO DAILY 03/17/18 Finasteride [Proscar 5 mg Tablet] 5 mg PO DAILY #30 tablet 11/03/18 History of Present Illness History of Present Illness: LENNIE SANTANA is a 82 year old male with a past medical history of Parkinson's disease and asthma who presented to the emergency department today with a complaint of sudden onset fevers and chills overnight with shortness of breath, productive cough, and confusion from baseline. Patient is typically alert and oriented x4; currently oriented to self only. Evaluation in the emergency department revealed hypoxia on room air (89%) fever (101), Tachycardia (HR 109), hypotension (88/59), and tachypnea (RR 28). Laboratory evaluation revealed normal WBC but with elevated neutrophil count, unremarkable chemistry, mildly elevated proBNP, benign urinalysis, benign head CT, and a chest x-ray demonstrating left lung pneumonia concerning for possible aspiration. Patient was provided IV fluid bolus for Sepsis x2 L received Rocephin IV x1 and placed on Zosyn and BiPAP support. He is referred to the hospitalist service for admission and management of the above-stated complaints and findings. Hospital Course Hospital Course: This is 82 years old male patient past medical history of Parkinson's disease and bronchial asthma brought from home chief complaint of shortness of breath, confusion and fever. In ER patient found to be febrile with T-max of 101 tachycardic with heart rate of 109, hypotensive with blood pressure of 88/59, tachypnea with respiratory rate of 28. Yesterday his white cell count was 10,000 today it is 29,000. His chest x-ray shows left lower lobe consolidation. Patient is being treated as a case of pneumonia. He has been started on vancomycin and Zosyn. I will de-escalate his antibiotic based on his culture results and clinical response. This morning patient seen resting in bed comfortably he is awake alert and oriented. 10/21/2018: Patient seen and examined while he is resting in bed. His blood pressure is still low and patient restarted on Levophed at 1 joe. His blood work shows mild hypokalemia with potassium of 3.1 hypocalcemia with calcium level of 6.9. His acute kidney injury is improving that his creatinine trended down from 1.35-1.07. 10/22/2018: Patient seen propped up in bed. He is somewhat sleepy but arousable and responds appropriately. Yesterday patient had an episode of new onset A. fib for which you Dr. Sterling consulted who recommended to pull PICC line by few millimeters. He suspected may be the PICC line triggered the A. fib. Currently patient is in sinus rhythm and heart rate is well controlled. Patient is taken off Levophed since his blood pressure stabilized. Potentially he is downgraded able tomorrow to the regular floor. 10/23/2018: Patient is seen propped up in bed. He saturates 97% while he has been on BiPAP. 10/24/2018: Patient seen resting in bed. He has uneventful night. His modified barium swallow reported as silent subglottic aspiration was initially swallowed thin liquid. Speech therapist recommended mechanical soft, chopped meat and nectar thick liquids. His blood pressure is stable and his blood works are unremarkable patient is stable enough to be downgraded to IMCU. Palliative care is scheduled to see this patient. 11/01/2018: Patient has not been discharged since his last admission. It was my patient last time. Patient currently is being treated for aspiration pneumonia. His last antibiotic will be November 03. Patient also has a new problem that this urinary retention has been started on Flomax and I added finasteride. We will remove catheter and watch him if he is able to be by himself. 11/02/2018: Patient seen propped up in bed. No adverse event overnight. Patient to complete his course of antibiotics tomorrow. His Burns will be removed tomorrow and watch if patient stable to urinate by himself. If he is not able to pee by himself patient will be discharged with Burns catheter and follow-up with urologist. 11/03/2018: Patient seen propped up in bed. He is sleeping quietly. He is not in distress his breathing smoothly. His Burns catheter taken out at about 5 AM this morning but the patient has not urinated by himself so far. Patient is going to watch for 6 hours during this time he is not able to be by himself will have to reinsert the Burns catheter and discharge him and follow-up with urologist. Patient completed course of antibiotics so he does not need outpatient antibiotic treatment. pass worker will discuss with the family to address their needs. His vitals and blood works are stable. Physical Exam Vital Signs: Temp Pulse Resp BP Pulse Ox 97.8 F 89 15 113/56 L 96 11/03/18 07:48 11/03/18 07:50 11/03/18 07:50 11/03/18 07:48 11/03/18 07:50 Intake & Output 11/02/18 11/03/18 11/04/18 06:59 06:59 06:59 Intake Total 754 1233 Output Total 8872 3910 Balance -1196 -617 Weight 97.2 kg 95.3 kg General appearance: PRESENT: no acute distress Head exam: PRESENT: atraumatic Neck exam: ABSENT: carotid bruit, JVD, lymphadenopathy, thyromegaly Respiratory exam: PRESENT: crackles, decreased breath sounds Cardiovascular exam: PRESENT: RRR. ABSENT: diastolic murmur, rubs, systolic murmur Neurological exam: PRESENT: alert Results Laboratory Results: 10/31/18 10:28 10/31/18 11:26 10/19/18 10/19/18 10/19/18 07:28 08:49 08:49 Troponin I Cancelled < 0.012 NT-Pro-B Natriuret Pep 1030 H Impressions: Head CT 10/19/18 09:52 IMPRESSION: MILD CHRONIC CHANGES OF ATROPHY AND MICROVASCULAR ISCHEMIA. NO ACUTE PROCESS. ETHMOID, MAXILLARY AND SPHENOID SINUS DISEASE. EVIDENCE OF ACUTE STROKE: NO Interventional Vascular Procedure 10/20/18 00:00 IMPRESSION: SUCCESSFUL PLACEMENT OF A 5 FR DUAL LUMEN 42 CM PICC IN THE LEFT BASILIC VEIN. PICC Line Insertion 10/20/18 10:43 IMPRESSION: SUCCESSFUL PLACEMENT OF A 5 FR DUAL LUMEN 42 CM PICC IN THE LEFT BASILIC VEIN. Modified Barium Swallow 10/24/18 00:00 IMPRESSION: She Silent subglottic aspiration with the initial swallow of thin liquid barium. Subsequent swallows were well tolerated by the patient PLEASE SEE SPEECH PATHOLOGIST REPORT FOR OTHER FINDINGS AND RECOMMENDATIONS. Chest CT 10/27/18 00:00 IMPRESSION: Cardiomegaly. Bilateral pleural effusions. Airspace disease in the right lower lobe, pneumonia versus atelectasis. Airspace disease in the left upper lobe and left lower lobe, pneumonia versus atelectasis. Chest X-Ray 10/30/18 00:00 IMPRESSION: Decrease in the pleural effusions. Increasing parenchymal opacities in the left lung compatible with pneumonia. Vascular congestion. Qualifiers - * PATIENT BEING DISCHARGED WITH ANY OF THE FOLLOWING DIAGNOSIS: No Acute Heart Failure - Is this a Heart Failure Patient?: No LVEF < 40%?: No- if no continue to question #3 3. Anticoagulant therapy for permanect/persistent/paraoxysmal Afib or Aflutter: N/A
== END 2018-11-03 17:30 | disposition home health service (06) | DRG 871 ==
LOC: ER 06:58 → EH 11:48 → ICU 18:47 → 5 10-24 12:20 → 3W 10-27 10:05
PROVIDERS: ADMIT Internal Medicine; ATTEND Internal Medicine
PROC: 02HV33Z Insertion of Infusion Device into Superior Vena Cava, Percutaneous Approach (ICD-10-PCS; principal; 2018-10-20)
PROC: B548ZZA Ultrasonography of Superior Vena Cava, Guidance (ICD-10-PCS; 2018-10-20)
DX: A41.9 Sepsis, unspecified organism (principal); J69.0 Pneumonitis due to inhalation of food and vomit; G93.41 Metabolic encephalopathy; J96.01 Acute respiratory failure with hypoxia; N17.9 Acute kidney failure, unspecified; G20 Parkinson's disease; J45.909 Unspecified asthma, uncomplicated; M19.90 Unspecified osteoarthritis, unspecified site; E87.6 Hypokalemia; E83.51 Hypocalcemia; I48.91 Unspecified atrial fibrillation; R33.9 Retention of urine, unspecified; Z90.49 Acquired absence of other specified parts of digestive tract; Z88.5 Allergy status to narcotic agent
CPT/HCPCS: 36415; 36569; 36600; 51702; 70450; 71045; 71046; 71250; 74230; 76937; 80048; 80053; 80202; 81001; 82040; 82803; 82962; 83605; 83735; 83880; 84484; 85025; 85610; 87040; 87070; 87086; 87205; 93005; 93010; 94660; 94799; 96361; 96365; 96367; 96375; 99285; C1758; J0360; J0456; J0696; J1642; J1644; J1940; J2405; J2543; J3370; J3480; J3490; J7030; J7050; J7060; J7620

== ENCOUNTER 2019-05-22 10:54 | Emergency (ER) | payer MEDICARE, OTHER ==
[2019-05-22 11:15] LABS: ABSOLUTE EOSINOPHILS # (AUTO) 0.4 10^3/uL (0.0-0.6); ABSOLUTE LYMPHOCYTES (AUTO) 1.9 10^3/uL (0.5-4.7); ABSOLUTE MONOCYTES (AUTO) 0.7 10^3/uL (0.1-1.4); ABSOLUTE NEUT (AUTO) 4.2 10^3/uL (1.7-8.2); BASOPHILS % (AUTO) 0.5 % (0-2); EOSINOPHILS % (AUTO) 5.1 % (0-6); HEMATOCRIT 36.8 % (37.9-51.0); HEMOGLOBIN 12.4 g/dL (13.5-17.0); LYMPHOCYTES % (AUTO) 26.6 % (13-45); MEAN CORPUSCULAR HEMOGLOBIN 30.4 pg (27.0-33.4); MEAN CORPUSCULAR HGB CONC 33.7 g/dL (32.0-36.0); MEAN CORPUSCULAR VOLUME 90 fl (80-97); PLATELET COUNT 244 10^3/uL (150-450); RED BLOOD COUNT 4.09 10^6/uL (4.35-5.55); RED CELL DISTRIBUTION WIDTH 15.5 % (11.5-14.0); SEGMENTED NEUTROPHILS % (AUTO) 57.8 % (42-78); TOTAL CELLS COUNTED % (AUTO) 100 %; WHITE BLOOD COUNT 7.2 10^3/uL (4.0-10.5)
[2019-05-22 11:36] LABS: ALBUMIN 2.8 g/dL (3.5-5.0); ALKALINE PHOSPHATASE 65 U/L (38-126); ASPARTATE AMINO TRANSFERASE 15 U/L (17-59); BILIRUBIN,DIRECT 0.1 mg/dL (0.0-0.4); BILIRUBIN,TOTAL 0.5 mg/dL (0.2-1.3); BLOOD UREA NITROGEN 24 mg/dL (7-20); CALCIUM 8.5 mg/dL (8.4-10.2); GLUCOSE 87 mg/dL (75-110); POTASSIUM 4.7 mmol/L (3.6-5.0); TOTAL PROTEIN 5.8 g/dL (6.3-8.2)
[2019-05-22 11:37] LABS: CREATINE KINASE < 20 U/L (55-170)
[2019-05-22 11:42] LABS: CARBON DIOXIDE 31 mmol/L (22-30); CHLORIDE 99 mmol/L (98-107)
[2019-05-22 11:45] LABS: ANION GAP 4 (5-19)
[2019-05-22 11:48] LABS: CREATINE KINASE MB 0.36 ng/mL (<4.55)
[2019-05-22 11:49] LABS: TROPONIN I < 0.012 ng/mL
[2019-05-22] MEDS ORDERED: NORMAL SALINE 1000 ML 500 ML IV ONE (12:01)
--- NOTE | 2019-05-22 12:26 | ER Document Report ---
ED Blood Pressure Problem - General Chief Complaint: Low Blood Pressure Stated Complaint: BLOOD PRESSURE ISSUES Time Seen by Provider: 05/22/19 11:53 Primary Care Provider: RAUDEL IBARRA MD [Primary Care Provider] - Follow up as needed Notes: HPI: Patient is an 83-year-old male who lives at home taking care of by the family with severe Parkinson's disease and other past medical history as recorded who presents today given that the family noticed a low blood pressure at home on the initial blood pressure reading. Patient has had no runny nose, congestion, cough, fevers, vomiting, or diarrhea. Repeat blood pressure by EMS and here has been normal. ROS: See HPI All other review of systems reviewed and otherwise negative Reviewed vital signs and nursing note as charted by RN. PHYSICAL EXAM: CONSTITUTIONAL: Alert and does answer questions. His mouth is agape during most of the interview which is baseline HEAD: Normocephalic; atraumatic EYES: PERRL; Conjunctivae clear, sclerae non-icteric ENT: Normal nose; no rhinorrhea; moist mucous membranes; pharynx without lesions noted NECK: Supple without meningismus; non-tender; no cervical lymphadenopathy, no masses CARD: Regular rate and rhythm; no murmurs; symmetric distal pulses RESP: Normal chest excursion without splinting or tachypnea; breath sounds clear and equal bilaterally; no wheezes, no rhonchi, no rales ABD/GI: Normal bowel sounds; non-distended; soft, non-tender; no palpable organomegaly or masses BACK: The back appears normal and is non-tender to palpation EXT: Normal ROM in all joints; non-tender to palpation; no edema SKIN: No acute lesions noted NEURO: CN 2-12 intact; 5/5 bilateral upper and lower extremity strength with sensation intact to light touch PSYCH: The patient's mood and manner are appropriate. Grooming and personal hygiene are appropriate. TRAVEL OUTSIDE OF THE [place] IN LAST 30 DAYS: No - Related Data Allergies/Adverse Reactions: Opioids - Morphine Analogues [Opioids-Morphine & Related] Allergy (Verified 05/22/19 11:23) Confusion sleep medications Adverse Reaction (Uncoded 05/22/19 11:23) Hallucinations Past Medical History - Social History Smoking Status: Never Smoker Chew tobacco use (# tins/day): No Frequency of alcohol use: Occasional Drug Abuse: None Family History: DM, Malignancy, Other - COPD Patient has suicidal ideation: No Patient has homicidal ideation: No - Past Medical History Cardiac Medical History: Denies: Hx Congestive Heart Failure, Hx Heart Attack, Hx Hypertension Pulmonary Medical History: Reports: Hx Pneumonia Denies: Hx Asthma, Hx Bronchitis, Hx COPD, Hx Tuberculosis Neurological Medical History: Reports: Hx Parkinson's Disease. Denies: Hx Seizures Renal/ Medical History: Denies: Hx Benign Prostatic Hyperplasia, Hx End Stage Renal Disease, Hx Kidney Stones, Hx Peritoneal Dialysis GI Medical History: Denies: Hx Cirrhosis, Hx Gastroesophageal Reflux Disease, Hx Ulcer Musculoskeletal Medical History: Reports Hx Arthritis - hands and ankles, Denies Hx Multiple Sclerosis Psychiatric Medical History: Denies: Hx Bipolar Disorder, Hx Depression, Hx Schizophrenia Past Surgical History: Reports: Hx Cardiac Surgery - Bilateral, Hx Cholecystectomy, Hx Herniorrhaphy. Denies: Hx Abdominal Surgery - Immunizations Hx Diphtheria, Pertussis, Tetanus Vaccination: Yes Hx Pneumococcal Vaccination: 12/20/12 Physical Exam - Vital signs Vitals: Resp BP Pulse Ox 23 H 102/55 L 99 05/22/19 11:09 05/22/19 11:09 05/22/19 11:09 Course - Re-evaluation Re-evalutation: Given the above history and physical, we will order general chemistry and r eassess the patient's blood pressure. Given family's concern I will provide a small 500 mL normal saline bolus. 05/22/19 12:25 Labs as recorded. Repeat blood pressures have been normal. Family is comfortable taking the patient home. I believe this is reasonable. 05/22/19 12:35 EKG shows heart of 83, normal sinus rhythm, frequent PVCs in a bigeminy-like pattern. No ST elevation or depression. - Vital Signs Vital signs: Temp Pulse Resp BP Pulse Ox 97.6 F 22 H 109/58 L 98 05/22/19 11:11 05/22/19 12:01 05/22/19 12:01 05/22/19 12:01 - Laboratory Result Diagrams: 05/22/19 10:28 05/22/19 10:28 Laboratory results interpreted by me: 05/22/19 05/22/19 10:28 10:28 RBC 4.09 L Hgb 12.4 L Hct 36.8 L RDW 15.5 H Sodium 134.0 L Carbon Dioxide 31 H Anion Gap 4 L BUN 24 H AST 15 L Creatine Kinase < 20 L Total Protein 5.8 L Albumin 2.8 L Discharge - Discharge Clinical Impression: Low blood pressure reading Condition: Good Disposition: HOME, SELF-CARE Additional Instructions: Come back immediately with any fevers, vomiting, diarrhea, change in mental stat us, repeat low blood pressures, or any other acute problems. Please follow-up with the [facility] as discussed. Referrals: RAUDEL IBARRA MD [Primary Care Provider] - Follow up as needed
--- NOTE | 2019-05-22 13:13 | EKG REPORT ---
SEVERITY:- ABNORMAL ECG - SINUS RHYTHM MULTIPLE VENTRICULAR PREMATURE COMPLEXES BORDERLINE LEFT AXIS DEVIATION : Confirmed by: Rogers Collins MD 22-May-2019 13:12:31
--- NOTE | 2019-05-22 13:13 | EKG REPORT ---
SEVERITY:- ABNORMAL ECG - SINUS RHYTHM CONSIDER OLD TRUE POST WA. VENTRICULAR BIGEMINY : Confirmed by: Rogers Collins MD 22-May-2019 13:12:18
[2019-05-22 18:25] VITALS: BP 123/59
== END 2019-05-22 18:24 | disposition home or self-care (01) ==
LOC: ER 10:54
DX: I95.9 Hypotension, unspecified (principal); G20 Parkinson's disease; Z90.49 Acquired absence of other specified parts of digestive tract
CPT/HCPCS: 93005; 99285; 96360; 36415; 82553; 82550; 85025; 80053; 84484; 93010; J7030